=== PATIENT | male | born 1990 | race Caucasian/White ===

== ENCOUNTER → 2025-09-21 | Outpatient (CLI) | payer OTHER, SELFPAY ==
--- NOTE | 2025-09-21 14:32 | RAD_ITS ---
PROCEDURE: HAND 2 VIEWS 09/21/2025 REASON FOR EXAM: ARTHRITIS Pain. TECHNIQUE: Procedure Code: RADHAND 2V Modality: DX Procedure: HAND 2 VIEWS Laterality: Bilateral COMPARISON: None available for review. FINDINGS: Radiographs of bilateral hands demonstrate anatomic alignment without acute fracture or subluxation. Joint spaces are preserved. Soft tissues are within normal limits. RAD/Hand 2 Views IMPRESSION: No evidence of acute fracture or subluxation. No findings to suggest erosive o r proliferative arthropathy. Reading Location: [id number]
--- NOTE | 2025-09-21 14:32 | RAD_ITS ---
PROCEDURE: HAND 2 VIEWS 09/21/2025 REASON FOR EXAM: ARTHRITIS Pain. TECHNIQUE: Procedure Code: RADHAND 2V Modality: DX Procedure: HAND 2 VIEWS Laterality: Bilateral COMPARISON: None available for review. FINDINGS: Radiographs of bilateral hands demonstrate anatomic alignment without acute fracture or subluxation. Joint spaces are preserved. Soft tissues are within normal limits. RAD/Hand 2 Views IMPRESSION: No evidence of acute fracture or subluxation. No findings to suggest erosive o r proliferative arthropathy. Reading Location: [id number]
--- OUTSIDE RECORDS SUMMARY | 2025-09-21 18:38 | XMS RPT_ITS | CCD ---
Author Organization [facility] Care Team Providers Care State Director Name Role Phone PHYSICIAN, NONE Primary Care Physician Unavailab [facility] Primary Care Physician [facility] Primary Care Unavailable NICCI VELÁZQUEZ, BRYANT Echeverria Attending Unavail able RON , DR DELLA Grant Attending Unavailable [place], [facility] Primary Care Unavailable PATRICIA PHILIPPE DO Attending Unavailable [place], [facility] Primary Care Unavailable MARIA FERNANDA JONES MD Attending Unavailable PHYSICIAN, NONE Primary Care Unavailable TIARA VELÁZQUEZ, ERROL Palacios Attending Unavailable [place], [facility] Primary Care Unavailable ERROL MENJIVAR MD Attending Unavailable [place], [facility] Primary Care Unavailable SHERI FIGUEROA DO Consulting Unavailable ELIZABETH VELÁZQUEZ, DR GRIMALDO Attending Unavailable [place], [facility] Primary Care Unavailable GIGI VELÁZQUEZ, DR KELLEY Phillips Admitting Unavailable JENNI BARNHART MD Consulting Unavailable ISAIAH ALBERTO, NBA Thomas Attending Unavaila [facility], [facility] Primary Care Unavailable Medications Current Medications Medication Drug Class(es) Dates Sig (Normalized) Sig (Original) acetaminophen 325 mg / HYDROcodone bitartrate 5 mg oral tablet (4 sources) Opioid Agonist Start: 07-29-2025 End: 08-01-2025 take 1 tablet by mouth every six hours as needed for pain Arnold 325- 5 mg oral tablet Dose = 1 tab(s), Oral, q6h, PRN as needed for pain, X 3 day(s), # 12 tab(s), 0 Refill(s), Gastritis, 86.4 Start Date: 07/29/25 Stop Date: 08/01/25 Status: Ordered Medication Dispense Status: Completed Quantity: 12.0 Unit: tab(s) Total Allowed Fills: 1 Fills Dispensed: 0 Indications: Gastritis, unspecified, without bleeding; Start: 06-13-2025 End: 06-16-2025 take 1 tablet by mouth every six hours as needed for pain Arnold 325- 5 mg oral tablet Dose = 1 tab(s), Oral, q6hr, PRN for pain, X 3 day(s), # 12 tab(s), 0 Refill(s), Neck pain, 89.5 Start Date: 06/13/25 Stop Date: 06/16/25 Status: Ordered Medication Dispense Status: Completed Quantity: 12.0 Unit: tab(s) Total Allowed Fills: 1 Fills Dispensed: 0 Indications: Cervicalgia; cyclobenzaprine hydrochloride 10 mg oral tablet (1 source) Muscle Relaxant Start: 07-08-2025 End: 07-24-2025 take 1 capsule by mouth three times daily Flexeril use cyclobenzaprine Dose : 10 mg =, Oral, TID, # 20 cap(s), 0 Refill(s), 07/24/25 9:39:00 AM EDT Start Date: 07/08/25 Stop Date: 07/24/25 Status: Ordered Medication Dispense Status: Completed Quantity: 20.0 Unit: cap(s) Total Allowed Fills: 1 Fills Dispensed: 0 dicyclomine hydrochloride 20 mg oral tablet (3 sources) Anticholinergic Start: 07-29-2025 take 1 capsule by mouth four times daily Bentyl use dicyclomine Dose : 20 mg =, Oral, QID, # 20 cap(s), 0 Refill(s) Start Date: 07/29/25 Status: Ordered Medication Dispense Status: Completed Quantity: 20.0 Unit: cap(s) Total Allowed Fills: 1 Fills Dispensed: 0 famotidine 20 mg oral tablet (3 sources) Histamine-2 Receptor Antagonist Start: 07-29-2025 Pepcid 20 mg oral tablet Dose : 20 mg = 1 tab(s), Oral, BID, # 30 tab(s), 0 Refill(s) Start Date: 07/29/25 Status: Ordered Medication Dispense Status: Completed Quantity: 30.0 Unit: tab(s) Total Allowed Fills: 1 Fills Dispensed: 0 lansoprazole 15 mg delayed release oral capsule (3 sources) Proton Pump Inhibitor Start: 07-29-2025 Prevacid 15 mg oral delayed release capsule Dose : 15 mg = 1 cap(s), Oral, qDay, # 30 cap(s), 0 Refill(s) Start Date: 07/29/25 Status: Ordered Medication Dispense Status: Completed Quantity: 30.0 Unit: cap(s) Total Allowed Fills: 1 Fills Dispensed: 0 ondansetron 4 mg disintegrating oral tablet (3 sources) Serotonin-3 Receptor Antagonist Start: 07-29-2025 End: 08-02-2025 ondansetron 4 mg oral tablet, disintegrating Dose : 4 mg = 1 tab(s), Oral, q6h, PRN Nausea/Vomiting, X 4 day(s), # 12 tab(s), 0 Refill(s), 08/02/25 6:44:00 PM EDT Start Date: 07/29/25 Stop Date: 08/02/25 Status: Ordered Medication Dispense Status: Completed Quantity: 12.0 Unit: tab(s) Total Allowed Fills: 1 Fills Dispensed: 0 pantoprazole 40 mg delayed release oral tablet (1 source) Proton Pump Inhibitor Start: 08-02-2025 pantoprazole 40 mg oral enteric coated tablet Dose : 40 mg = 1 tab(s), Oral, qDayAC, # 30 tab(s), 0 Refill(s) Start Date: 08/02/25 Status: Ordered Medication Dispense Status: Completed Quantity: 30.0 Unit: tab(s) Total Allowed Fills: 1 Fills Dispensed: 0 Completed/Discontinued Medications Medication Drug Class(es) Dates Sig (Normalized) Sig (Original) sucralfate 1000 mg oral tablet (1 source) Aluminum Complex Start: 07-31-2025 End: 08-07-2025 sucralfate 1 g oral tablet Dose : 1 gram(s) = 1 tab(s), Oral, QID, take on an empty stomach 1hr before or 2hr after meals at minumum, # 28 tab(s), 0 Refill(s) Start Date: 07/31/25 Stop Date: 08/07/25 Status: Ordered Medication Dispense Status: Completed Quantity: 28.0 Unit: tab(s) Total Allowed Fills: 1 Fills Dispensed: 0 Problems Active Problems Problem Classification Problem Date Documented Date Episodic/Chronic Abdominal pain (6 sources) Abdominal pain; Translations: [Unspecified abdominal pain] Onset: 07-28-2025 Episodic Essential hypertension (1 source) Essential (primary) hypertension; Translations: [Essential (primary) hypertension] Onset: 07-31-2025 Chronic Gastritis and duodenitis (5 sources) Gastritis; Translations: [Gastritis, unspecified, without bleeding] Onset: 07-29-2025 Episodic Nausea and vomiting (1 source) Nausea with vomiting, unspecified; Translations: [Nausea with vomiting, unspecified] Onset: 07-28-2025 Episodic Other injuries and conditions due to external causes (1 source) Other specified injuries of unspecified part of neck, initial encounter; Translations: [Other specified injuries of unspecified part of neck, initial encounter] Onset: 07-08-2025 Episodic Other injuries and conditions due to external causes (1 source) History of falling; Translations: [History of falling] Onset: 07-08-2025 Episodic Other nervous system disorders (1 source) Other chronic pain; Translations: [Other chronic pain] Onset: 07-31-2025 Chronic Other screening for suspected conditions (not mental disorders or infectious disease) (1 source) Abnormal electrocardiogram [ECG] [EKG]; Translations: [Abnormal electrocardiogram [ECG] [EKG]] Onset: 07-29-2025 Episodic Spondylosis; intervertebral disc disorders; other back problems (4 sources) Neck pain; Translations: [Cervicalgia] Onset: 06-13-2025 Episodic Substance-related disorders (1 source) Cannabis use, unspecified, uncomplicated; Translations: [Cannabis use, unspecified, uncomplicated] Onset: 07-31-2025 Episodic Past or Other Problems Problem Classification Problem Date Documented Da te Episodic/Chronic Other ear and sense organ disorders (1 source) Otalgia, right ear; Translations: [Otalgia, right ear] Onset: 05-09-2025 Episodic Results Test Name Value Interpretation Reference Range Facility Final Surgical Pathology Rep delmy 08-03-2025 Final Surgical Pathology Report . Pathology Reports Accession: Collected Date/Time: Received Date/Time: Pathologist: [id number] 08/02/2025 11:53 EDT 08/02/2025 13:57 EDT MD KENDELL MOLINA Final Surgical Pathology Report DIAGNOSIS: GASTRIC ANTRUM, BIOPSY: - MILD CHRONIC GASTRITIS - NEGATIVE FOR H. PYLORI CLINICAL INFORMATION: R/O H PYLORI Procedure: EGD USING ANESTHESIA Preoperative diagnosis: EPIGASTRIC PAIN, NAUSEA Postoperative diagnosis: SAME SPECIMEN: A GASTRIC ANTRUM BIOPSY GROSS DESCRIPTION: All parts labelled with patient name and [id number] Received in formalin labeled "gastric antrum biopsy" are 2 jackson-brown tissue fragments measuring 0.3 and 0.8 x 0.3 cm. TS-1 Alice Evans, Grossing Director Of Bands/ Dr. Nba Gill, Pathologist Performed by Alice Evans MICROSCOPIC DESCRIPTION: The microscopic examination is performed, except in the case of Gross Only. Verified by Pathology Report verified by [facility] KENDELL MOLINA MD Sign out Date: 08/03/2025 15:46 Performing Lab: [facility], [address] [place] [address] Pathology Dept Disclaimer If ancillary studies were utilized, the following Laboratory Developed Test (LDT) disclaimer will apply: Under CLIA requirements, [facility] is qualified to perform high complexity testing. For all ancillary stains, positive and negative controls stain appropriately. Performance characteristics of immunohistochemical and chromogenic in-situ hybridization tests have been determined by [facility]. These tests are used for clinical purposes, They should not be regarded as investigational or for research. Normal [facility] .Auto Diffon 08-02-2025 Basophil, Absolute 0.0 10 3/mcL Normal 0.0-0.3 [facility] Comment on above: Performed By: #### B MP, CBC, ADIFF, ANEU, GFR #### [address] [address] Basophils/100 WBC (Bld) 0.6 % Normal 0.0-2.5 [facility] Comment on above: Performed By: #### B MP, CBC, ADIFF, ANEU, GFR #### [address] [address] Eosinophil, Absolute 0.1 10 3/mcL Normal 0.0-0.7 [facility] Comment on above: Performed By: #### B MP, CBC, ADIFF, ANEU, GFR #### [address] [address] Eosinophils/100 WBC (Bld) 1.6 % Normal 0.0-6.0 [facility] Comment on above: Performed By: #### B MP, CBC, ADIFF, ANEU, GFR #### [address] [address] Lymphocyte, Absolute 1.5 10 3/mcL Normal 0.9-4.3 [facility] Comment on above: Performed By: #### B MP, CBC, ADIFF, ANEU, GFR #### [address] [address] Lymphocytes/100 WBC (Bld) 19.2 % Low 20.0-40.0 [facility] Comment on above: Performed By: #### B MP, CBC, ADIFF, ANEU, GFR #### [address] [address] Monocyte, Absolute 0.5 10 3/mcL Normal 0.1-1.4 [facility] Comment on above: Performed By: #### B MP, CBC, ADIFF, ANEU, GFR #### [address] [address] Monocytes/100 WBC (Bld) 6.0 % Normal 2.0-13.0 [facility] Comment on above: Performed By: #### B MP, CBC, ADIFF, ANEU, GFR #### [address] [address] Neutrophils/100 WBC (Bld) 72.6 % Normal 50.0-75.0 [facility] Comment on above: Performed By: #### B MP, CBC, ADIFF, ANEU, GFR #### [address] [address] .GFRon 08-02-2025 Estimated Glomerular Filtration Rate 110 ml/min/1.73sqm Normal [facility] Comment on above: Result Comment: Stages of Chronic Kidney Disease (CKD) Stage Description eGFR(ml/min/1.73 sq.m.) CKD 1 Normal kidney function or >=90 normal kindney function with possible kidney damage (ex. Proteinuria) CKD 2 Kidney damage with mild loss 60-89 of kidney function CKD 3a Mild to moderate loss of kidney 45-59 function CKD 3b Moderate to severe loss of 30-44 of kindey function CKD 4 Severe loss of kidney function 15-29 CKD 5 Kidney failure <15 Note: (go live 2024) the eGFR calculation was updated to the 2020 CKD-EPI creatinine equation without a race factor to calculate the eGFR results. Performed By: #### B MP, CBC, ADIFF, ANEU, GFR ####[address] [address] .NEUABSon 08-02-2025 Neutrophil, Absolute 5.8 10 3/mcL Normal 2.3-8.1 [facility] Comment on above: Performed By: #### B MP, CBC, ADIFF, ANEU, GFR #### [address] [address] BMPon 08-02-2025 BUN/Creatinine Ratio 6.4 ratio Low 10.0-22.0 [facility] Comment on above: Performed By: #### B MP, CBC, ADIFF, ANEU, GFR #### [address] [address] Calcium [Mass/Vol] 10.2 mg/dL Normal 8.7-10.4 [facility] Comment on above: Performed By: #### B MP, CBC, ADIFF, ANEU, GFR #### [address] [address] Chloride [Moles/Vol] 109 mmol/L Normal 98-110 [facility] Comment on above: Performed By: #### B MP, CBC, ADIFF, ANEU, GFR #### [address] [address] CO2 [Moles/Vol] 26 mmol/L Normal 22-32 [facility] Comment on above: Performed By: #### B MP, CBC, ADIFF, ANEU, GFR #### [address] [address] Creatinine [Mass/Vol] 0.94 mg/dL Normal 0.60-1.40 [facility] Comment on above: Result Comment: Test ing performed on NewsBreak analyzer using enzymatic creatinine methodology. Performed By: #### B MP, CBC, ADIFF, ANEU, GFR #### [address] [address] Electrolyte Balance 6.0 mEq/L Normal 4.0-15.0 [facility] Comment on above: Performed By: #### B MP, CBC, ADIFF, ANEU, GFR #### [place] [id number] Glucose [Mass/Vol] 95 mg/dL Normal 70-110 [facility] Comment on above: Performed By: #### B MP, CBC, ADIFF, ANEU, GFR #### [place] [id number] Potassium [Moles/Vol] 4.4 mmol/L Normal 3.5-5.0 [facility] Comment on above: Performed By: #### B MP, CBC, ADIFF, ANEU, GFR #### [place] [id number] Sodium [Moles/Vol] 141 mmol/L Normal 136-145 [facility] Comment on above: Performed By: #### B MP, CBC, ADIFF, ANEU, GFR #### [place] [address] Urea nitrogen [Mass/Vol] 6.0 mg/dL Low 8.0-22.0 [facility] Comment on above: Performed By: #### B MP, CBC, ADIFF, ANEU, GFR #### [address] [address] CBCon 08-02-2025 Erythrocyte distribution width (RBC) [Ratio] 13.1 % Normal 11.5-15.5 [facility] Comment on above: Performed By: #### B MP, CBC, ADIFF, ANEU, GFR #### [place] [id number] Hematocrit (Bld) [Volume fraction] 43.8 % Normal 40.0-52.0 [facility] Comment on above: Performed By: #### B MP, CBC, ADIFF, ANEU, GFR #### [place] [id number] Hgb 15.3 G/dL Normal 13.0-17.5 [facility] Comment on above: Performed By: #### B MP, CBC, ADIFF, ANEU, GFR #### [address] [address] MCH (RBC) [Entitic mass] 31.0 pg Normal 27.0-33.0 [facility] Comment on above: Performed By: #### B MP, CBC, ADIFF, ANEU, GFR #### [address] [address] MCHC 35.0 G/dL Normal 32.0-36.0 [facility] Comment on above: Performed By: #### B MP, CBC, ADIFF, ANEU, GFR #### [address] [address] MCV (RBC) [Entitic vol] 88.8 fL Normal 81.0-100.0 [facility] Comment on above: Performed By: #### B MP, CBC, ADIFF, ANEU, GFR #### [place] [address] Platelet 211 10 3/mcL Normal 150-450 [facility] Comment on above: Performed By: #### B MP, CBC, ADIFF, ANEU, GFR #### [place] [address] Platelet mean volume (Bld) [Entitic vol] 7.3 fL Normal 6.4-10.5 [facility] Comment on above: Performed By: #### B MP, CBC, ADIFF, ANEU, GFR #### [place] [id number] RBC 4.93 10 6/mcL Normal 4.50-6.00 [facility] Comment on above: Performed By: #### B MP, CBC, ADIFF, ANEU, GFR #### [address] [address] WBC 8.0 10 3/mcL Normal 4.5-10.8 [facility] Comment on above: Performed By: #### B MP, CBC, ADIFF, ANEU, GFR #### [address] [address] LABORATORYOrdered By: SYSTEM SYSTEM on 08-02-2025 Basophils (Bld) [#/Vol] 0.0 103/mcL Normal 0.0 - 0.3 10^3/mcL Workflow SS Basophils/100 WBC (Bld) 0.6 % Normal 0.0 - 2.5 % Workflow SS Calcium [Mass/Vol] 10.2 mg/dL Normal 8.7 - 10. 4 mg/dL ADM SS Chloride [Moles/Vol] 109 mmol/L Normal 98 - 11 0 mEq/L ADM SS CO2 [Moles/Vol] 26 mmol/L Normal 22 - 32 mEq/L ADM SS Creatinine [Mass/Vol] 0.94 mg/dL Normal 0.60 - 1.40 mg/dL ADM SS Comment on above: Interpretive Data: T esting performed on NewsBreak analyzer using enzymatic creatinine methodology. Electrolyte Balance 6.0 mEq/L Normal 4.0 - 15 .0 mEq/L ADM SS Eosinophils (Bld) [#/Vol] 0.1 103/mcL Normal 0.0 - 0.7 10^3/mcL Workflow SS Eosinophils/100 WBC (Bld) 1.6 % Normal 0.0 - 6.0 % Workflow SS Erythrocyte distribution width (RBC) [Ratio] 13.1 % Normal 11.5 - 15.5 % Workflow SS GLOMERULAR FILTRATION RATE/1.73 SQ M.PREDICTED:ARVRAT:PT :SER/PLAS/BLD:QN:CREA TININE-BASED FORMULA (CKD-EPI 2020) 110 ml/min/1.73sqm Invalid Interpretation Code Chemistry S Comment on above: Interpretive Data: Stages of Chronic Kidney Disease (CKD) Stage Description eGFR(ml/min/1.73 sq.m.) CKD 1 Normal kidney function or >=90 normal kindney function with possible kidney damage (ex. Proteinuria) CKD 2 Kidney damage with mild loss 60-89 of kidney function CKD 3a Mild to moderate loss of kidney 45-59 function CKD 3b Moderate to severe loss of 30-44 of kindey function CKD 4 Severe loss of kidney function 15-29 CKD 5 Kidney failure <15 Note: (go live 2024) the eGFR calculation was updated to the 2020 CKD-EPI creatinine equation without a race factor to calculate the eGFR results. Glucose [Mass/Vol] 95 mg/dL Normal 70 - 110 mg/dL ADM SS Hematocrit (Bld) [Volume fraction] 43.8 % Normal 40.0 - 52.0 % AH Workflow SS Hemoglobin (Bld) [Mass/Vol] 15.3 G/dL Normal 13.0 - 17.5 G/dL AH Workflow SS Lymphocytes (Bld) [#/Vol] 1.5 103/mcL Normal 0.9 - 4.3 10^3/mcL AH Workflow SS Lymphocytes/100 WBC (Bld) 19.2 % Low 20.0 - 40.0 % AH Workflow SS MCH (RBC) [Entitic mass] 31.0 pg Normal 27.0 - 33.0 pg AH Workflow SS MCHC 35.0 G/dL Normal 32.0 - 36.0 G/dL AH Workflow SS MCV (RBC) [Entitic vol] 88.8 fL Normal 81.0 - 100.0 fL AH Workflow SS Monocytes (Bld) [#/Vol] 0.5 103/mcL Normal 0.1 - 1.4 10^3/mcL AH Workflow SS Monocytes/100 WBC (Bld) 6.0 % Normal 2.0 - 13.0 % AH Workflow SS Neutrophils (Bld) [#/Vol] 5.8 103/mcL Normal 2.3 - 8.1 10^3/mcL AH Workflow SS Neutrophils/100 WBC (Bld) 72.6 % Normal 50.0 - 75.0 % AH Workflow SS Platelet mean volume (Bld) [Entitic vol] 7.3 fL Normal 6.4 - 10.5 fL AH Workflow SS Platelets (Bld) [#/Vol] 211 103/mcL Normal 150 - 450 10^3/mcL AH Workflow SS Potassium [Moles/Vol] 4.4 mmol/L Normal 3.5 - 5.0 mEq/L AH ADM SS RBC (Bld) [#/Vol] 4.93 106/mcL Normal 4.50 - 6.0 0 10^6/mcL AH Workflow SS Sodium [Moles/Vol] 141 mmol/L Normal 136 - 145 mEq/L AH ADM SS Urea nitrogen [Mass/Vol] 6.0 mg/dL Low 8.0 - 22.0 mg/dL AH ADM SS Urea nitrogen/Creatinine [Mass ratio] 6.4 ratio Low 10.0 - 22.0 ratio AH ADM SS WBC (Bld) [#/Vol] 8.0 103/mcL Normal 4.5 - 10.8 10^3/mcL AH Workflow SS .Auto Diffon 08-01-2025 Basophil, Absolute 0.0 10 3/mcL Normal 0.0-0.3 [facility] Comment on above: Performed By: #### L AC, LIP, TROPHS, GFR, ADIFF, ESR, CBC, ANEU, CMP ####[address] [address] Basophils/100 WBC (Bld) 0.5 % Normal 0.0-2.5 [facility] Comment on above: Performed By: #### L AC, LIP, TROPHS, GFR, ADIFF, ESR, CBC, ANEU, CMP ####[address] [address] Eosinophil, Absolute 0.1 10 3/mcL Normal 0.0-0.7 [facility] Comment on above: Performed By: #### L AC, LIP, TROPHS, GFR, ADIFF, ESR, CBC, ANEU, CMP ####[address] [address] Eosinophils/100 WBC (Bld) 1.8 % Normal 0.0-6.0 [facility] Comment on above: Performed By: #### L AC, LIP, TROPHS, GFR, ADIFF, ESR, CBC, ANEU, CMP ####[address] [address] Lymphocyte, Absolute 1.7 10 3/mcL Normal 0.9-4.3 [facility] Comment on above: Performed By: #### L AC, LIP, TROPHS, GFR, ADIFF, ESR, CBC, ANEU, CMP ####[address] [address] Lymphocytes/100 WBC (Bld) 23.5 % Normal 20.0-40.0 [facility] Comment on above: Performed By: #### L AC, LIP, TROPHS, GFR, ADIFF, ESR, CBC, ANEU, CMP ####[address] [address] Monocyte, Absolute 0.6 10 3/mcL Normal 0.1-1.4 [facility] Comment on above: Performed By: #### L AC, LIP, TROPHS, GFR, ADIFF, ESR, CBC, ANEU, CMP ####[address] [address] Monocytes/100 WBC (Bld) 7.6 % Normal 2.0-13.0 [facility] Comment on above: Performed By: #### L AC, LIP, TROPHS, GFR, ADIFF, ESR, CBC, ANEU, CMP ####[address] [address] Neutrophils/100 WBC (Bld) 66.6 % Normal 50.0-75.0 [facility] Comment on above: Performed By: #### L AC, LIP, TROPHS, GFR, ADIFF, ESR, CBC, ANEU, CMP ####[address] [address] .GFRon 08-01-2025 Estimated Glomerular Filtration Rate 106 ml/min/1.73sqm Normal [facility] Comment on above: Result Comment: Stages of Chronic Kidney Disease (CKD) Stage Description eGFR(ml/min/1.73 sq.m.) CKD 1 Normal kidney function or >=90 normal kindney function with possible kidney damage (ex. Proteinuria) CKD 2 Kidney damage with mild loss 60-89 of kidney function CKD 3a Mild to moderate loss of kidney 45-59 function CKD 3b Moderate to severe loss of 30-44 of kindey function CKD 4 Severe loss of kidney function 15-29 CKD 5 Kidney failure <15 Note: (go live 2024) the eGFR calculation was updated to the 2020 CKD-EPI creatinine equation without a race factor to calculate the eGFR results. Performed By: #### L AC, LIP, TROPHS, GFR, ADIFF, ESR, CBC, ANEU, CMP ####[address] [address] .NEUABSon 08-01-2025 Neutrophil, Absolute 4.9 10 3/mcL Normal 2.3-8.1 [facility] Comment on above: Performed By: #### L AC, LIP, TROPHS, GFR, ADIFF, ESR, CBC, ANEU, CMP ####[address] [address] CBCon 08-01-2025 Erythrocyte distribution width (RBC) [Ratio] 13.4 % Normal 11.5-15.5 [facility] Comment on above: Performed By: #### L AC, LIP, TROPHS, GFR, ADIFF, ESR, CBC, ANEU, CMP ####[place] [address] Hematocrit (Bld) [Volume fraction] 43.6 % Normal 40.0-52.0 [facility] Comment on above: Performed By: #### L AC, LIP, TROPHS, GFR, ADIFF, ESR, CBC, ANEU, CMP ####[place] [address] Hgb 15.1 G/dL Normal 13.0-17.5 [facility] Comment on above: Performed By: #### L AC, LIP, TROPHS, GFR, ADIFF, ESR, CBC, ANEU, CMP ####[place] [address] MCH (RBC) [Entitic mass] 31.2 pg Normal 27.0-33.0 [facility] Comment on above: Performed By: #### L AC, LIP, TROPHS, GFR, ADIFF, ESR, CBC, ANEU, CMP ####[place] [address] MCHC 34.8 G/dL Normal 32.0-36.0 [facility] Comment on above: Performed By: #### L AC, LIP, TROPHS, GFR, ADIFF, ESR, CBC, ANEU, CMP ####[place] [address] MCV (RBC) [Entitic vol] 89.6 fL Normal 81.0-100.0 [facility] Comment on above: Performed By: #### L AC, LIP, TROPHS, GFR, ADIFF, ESR, CBC, ANEU, CMP ####[place] [address] Platelet 194 10 3/mcL Normal 150-450 [facility] Comment on above: Performed By: #### L AC, LIP, TROPHS, GFR, ADIFF, ESR, CBC, ANEU, CMP ####[place] [address] Platelet mean volume (Bld) [Entitic vol] 6.6 fL Normal 6.4-10.5 [facility] Comment on above: Performed By: #### L AC, LIP, TROPHS, GFR, ADIFF, ESR, CBC, ANEU, CMP ####[place] [address] RBC 4.86 10 6/mcL Normal 4.50-6.00 [facility] Comment on above: Performed By: #### L AC, LIP, TROPHS, GFR, ADIFF, ESR, CBC, ANEU, CMP ####[place] [address] WBC 7.3 10 3/mcL Normal 4.5-10.8 [facility] Comment on above: Performed By: #### L AC, LIP, TROPHS, GFR, ADIFF, ESR, CBC, ANEU, CMP ####[place] [address] CMPon 08-01-2025 Albumin Level 4.3 G/dL Normal 3.2-4.8 [facility] Comment on above: Performed By: #### L AC, LIP, TROPHS, GFR, ADIFF, ESR, CBC, ANEU, CMP ####[place] [address] Albumin/Globulin [Mass ratio] 1.6 {ratio} Normal 0.9-1.6 [facility] Comment on above: Performed By: #### L AC, LIP, TROPHS, GFR, ADIFF, ESR, CBC, ANEU, CMP ####[place] [address] ALP [Catalytic activity/Vol] 55 U/L Normal 38-126 [facility] Comment on above: Performed By: #### L AC, LIP, TROPHS, GFR, ADIFF, ESR, CBC, ANEU, CMP ####[place] [address] ALT [Catalytic activity/Vol] 21 U/L Normal 12-55 [facility] Comment on above: Performed By: #### L AC, LIP, TROPHS, GFR, ADIFF, ESR, CBC, ANEU, CMP ####[place] [id number] AST [Catalytic activity/Vol] 17 U/L Normal 8-34 [facility] Comment on above: Performed By: #### L AC, LIP, TROPHS, GFR, ADIFF, ESR, CBC, ANEU, CMP ####[place] [address] Bili Total 1.20 mg/dL Normal 0.20-1.20 [facility] Comment on above: Result Comment: Use of this assay is not recommended for patients undergoing treatment with eltrombopag due to the potential for falsely elevated results. Performed By: #### L AC, LIP, TROPHS, GFR, ADIFF, ESR, CBC, ANEU, CMP ####[place] [address] BUN/Creatinine Ratio 12.4 ratio Normal 10.0-22.0 [facility] Comment on above: Performed By: #### L AC, LIP, TROPHS, GFR, ADIFF, ESR, CBC, ANEU, CMP ####[place] [address] Calcium [Mass/Vol] 9.8 mg/dL Normal 8.7-10.4 [facility] Comment on above: Performed By: #### L AC, LIP, TROPHS, GFR, ADIFF, ESR, CBC, ANEU, CMP ####[place] [address] Chloride [Moles/Vol] 108 mmol/L Normal 98-110 [facility] Comment on above: Performed By: #### L AC, LIP, TROPHS, GFR, ADIFF, ESR, CBC, ANEU, CMP ####[place] [id number] CO2 [Moles/Vol] 27 mmol/L Normal 22-32 [facility] Comment on above: Performed By: #### L AC, LIP, TROPHS, GFR, ADIFF, ESR, CBC, ANEU, CMP ####[place] [id number] Creatinine [Mass/Vol] 0.97 mg/dL Normal 0.60-1.40 [facility] Comment on above: Result Comment: Test ing performed on [employer] CH analyzer using enzymatic creatinine methodology. Performed By: #### L AC, LIP, TROPHS, GFR, ADIFF, ESR, CBC, ANEU, CMP ####[address] [address] Electrolyte Balance 7.0 mEq/L Normal 4.0-15.0 [facility] Comment on above: Performed By: #### L AC, LIP, TROPHS, GFR, ADIFF, ESR, CBC, ANEU, CMP ####[address] [address] Globulin 2.7 G/dL Normal 2.5-4.2 [facility] Comment on above: Performed By: #### L AC, LIP, TROPHS, GFR, ADIFF, ESR, CBC, ANEU, CMP ####[address] [address] Glucose [Mass/Vol] 98 mg/dL Normal 70-110 [facility] Comment on above: Performed By: #### L AC, LIP, TROPHS, GFR, ADIFF, ESR, CBC, ANEU, CMP ####[address] [address] Potassium [Moles/Vol] 3.8 mmol/L Normal 3.5-5.0 [facility] Comment on above: Performed By: #### L AC, LIP, TROPHS, GFR, ADIFF, ESR, CBC, ANEU, CMP ####[address] [address] Sodium [Moles/Vol] 142 mmol/L Normal 136-145 [facility] Comment on above: Performed By: #### L AC, LIP, TROPHS, GFR, ADIFF, ESR, CBC, ANEU, CMP ####[place] [id number] Total Protein 7.0 G/dL Normal 5.7-8.2 [facility] Comment on above: Performed By: #### L AC, LIP, TROPHS, GFR, ADIFF, ESR, CBC, ANEU, CMP ####[address] [address] Urea nitrogen [Mass/Vol] 12.0 mg/dL Normal 8.0-22.0 [facility] Comment on above: Performed By: #### L AC, LIP, TROPHS, GFR, ADIFF, ESR, CBC, ANEU, CMP ####[facility] [place] [address] ANGIOGRAPHY ABD AORTA + I LIOFEMORALon 08-01-2025 CT ANGIOGRAPHY ABD AORTA + ILIOFEMORAL ORIGINAL EXAMINATION: CTA OF THE ABDOMEN AND PELVIS WITH CONTRAST 08/01/2025 10:18 am: TECHNIQUE: CTA of the abdomen and pelvis was performed with the administration of intravenous contrast. Multiplanar reformatted images are provided for review. MIP images are provided for review. Automated exposure control, iterative reconstruction, and/or weight based adjustment of the mA/kV was utilized to reduce the radiation dose to as low as reasonably achievable. COMPARISON: CT abdomen and pelvis 07/29/2025 HISTORY: ORDERING SYSTEM PROVIDED HISTORY: Reason for Exam: pt c/o severe low abd pain into ribs and back Acute diffuse abdominal pain, postprandial abdominal pain IMPRESSION: Lung bases are clear. No pleural effusion heart is normal in size without pericardial effusion. Normal liver morphology. No suspicious hepatic lesions. The previously seen periportal edema appears to have resolved. Gallbladder is unremarkable. No biliary dilatation. Spleen, pancreas and adrenal glands are unremarkable. Kidneys are symmetric in size without evidence of hydronephrosis or renal calculi. Ureters are normal in caliber. Urinary bladder is unremarkable. Prostate is normal in size. Esophagus, stomach and duodenum are unremarkable. The previously seen at distal stomach wall thickening appears resolved. Normal caliber small and large bowel. Appendix is unremarkable. No pneumatosis or portal venous gas. No free pelvic fluid or pneumoperitoneum. Aorta is normal in caliber. The celiac, superior mesenteric, inferior mesenteric and bilateral single renal arteries are widely patent. The iliac and visualized femoral arteries are widely patent. No enlarged abdominal or pelvic lymph nodes. Abdominal wall is intact. No aggressive osseous lesions. RECOMMENDATIONS: No acute findings within the abdomen and pelvis. The mesenteric arteries are widely patent. Previously seen periportal edema has resolved. Previously seen gastric wall thickening has also resolved. Interpreted by: Nba Moses Preliminary Report By: Nba Moses Electronically signed By Nba Moses Dictated Date: 08/01/2025 10:23:48 AM Prelim Date: 08/01/2025 10:29:18 AM Sign Date: 08/01/2025 10:29:18 AM Ordering Provider: JENNI BARNHART RP Normal [facility] ESRon 08-01-2025 Erythrocyte Sed Rate 8 mm/hr Normal 0-15 [facility] Comment on above: Performed By: #### L AC, LIP, TROPHS, GFR, ADIFF, ESR, CBC, ANEU, CMP ####[facility] [place] [address] LABORATORYOrdered By: SYSTEM SYSTEM on 08-01-2025 Albumin BCP dye [Mass/Vol] 4.3 G/dL Normal 3.2 - 4.8 G/dL ADM SS Albumin/Globulin [Mass ratio] 1.6 {ratio} Normal 0.9 - 1.6 ratio AH ADM SS ALP [Catalytic activity/Vol] 55 U/L Normal 38 - 126 U/L AH ADM SS ALT No additional P-5'-P [Catalytic activity/Vol] 21 U/L Normal 12 - 55 U/L AH ADM SS AST [Catalytic activity/Vol] 17 U/L Normal 8 - 34 U/L AH ADM SS Basophils (Bld) [#/Vol] 0.0 103/mcL Normal 0.0 - 0.3 10^3/mcL AH Workflow SS Basophils/100 WBC (Bld) 0.5 % Normal 0.0 - 2.5 % AH Workflow SS Bilirubin [Mass/Vol] 1.20 mg/dL Normal 0.20 - 1.20 mg/dL AH ADM SS Comment on above: Interpretive Data: U se of this assay is not recommended for patients undergoing treatment with eltrombopag due to the potential for falsely elevated results. Calcium [Mass/Vol] 9.8 mg/dL Normal 8.7 - 10. 4 mg/dL AH ADM SS Chloride [Moles/Vol] 108 mmol/L Normal 98 - 11 0 mEq/L AH ADM SS CO2 [Moles/Vol] 27 mmol/L Normal 22 - 32 mEq/L AH ADM SS Creatinine [Mass/Vol] 0.97 mg/dL Normal 0.60 - 1.40 mg/dL AH ADM SS Comment on above: Interpretive Data: T esting performed on [employer] analyzer using enzymatic creatinine methodology. Electrolyte Balance 7.0 mEq/L Normal 4.0 - 15 .0 mEq/L AH ADM SS Eosinophils (Bld) [#/Vol] 0.1 103/mcL Normal 0.0 - 0.7 10^3/mcL Workflow SS Eosinophils/100 WBC (Bld) 1.8 % Normal 0.0 - 6.0 % Workflow SS Erythrocyte distribution width (RBC) [Ratio] 13.4 % Normal 11.5 - 15.5 % Workflow SS Globulin 2.7 G/dL Normal 2.5 - 4.2 G/dL ADM SS GLOMERULAR FILTRATION RATE/1.73 SQ M.PREDICTED:ARVRAT:PT :SER/PLAS/BLD:QN:CREA TININE-BASED FORMULA (CKD-EPI 2020) 106 ml/min/1.73sqm Invalid Interpretation Code ADM SS Comment on above: Interpretive Data: Stages of Chronic Kidney Disease (CKD) Stage Description eGFR(ml/min/1.73 sq.m.) CKD 1 Normal kidney function or >=90 normal kindney function with possible kidney damage (ex. Proteinuria) CKD 2 Kidney damage with mild loss 60-89 of kidney function CKD 3a Mild to moderate loss of kidney 45-59 function CKD 3b Moderate to severe loss of 30-44 of kindey function CKD 4 Severe loss of kidney function 15-29 CKD 5 Kidney failure <15 Note: (go live 2024) the eGFR calculation was updated to the 2020 CKD-EPI creatinine equation without a race factor to calculate the eGFR results. Glucose [Mass/Vol] 98 mg/dL Normal 70 - 110 mg/dL ADM SS Hematocrit (Bld) [Volume fraction] 43.6 % Normal 40.0 - 52.0 % Workflow SS Hemoglobin (Bld) [Mass/Vol] 15.1 G/dL Normal 13.0 - 17.5 G/dL Workflow SS Lactate [Moles/Vol] 0.6 mmol/L Normal 0.5 - 2. 2 mmol/L ADM SS Lipase [Catalytic activity/Vol] 33 U/L Normal 12 - 53 U/L ADM SS Lymphocytes (Bld) [#/Vol] 1.7 103/mcL Normal 0.9 - 4.3 10^3/mcL Workflow SS Lymphocytes/100 WBC (Bld) 23.5 % Normal 20.0 - 40.0 % Workflow SS Magnesium [Mass/Vol] 2.2 mg/dL Normal 1.6 - 2 .4 mg/dL ADM SS MCH (RBC) [Entitic mass] 31.2 pg Normal 27.0 - 33.0 pg Workflow SS MCHC 34.8 G/dL Normal 32.0 - 36.0 G/dL Workflow SS MCV (RBC) [Entitic vol] 89.6 fL Normal 81.0 - 100.0 fL Workflow SS Monocytes (Bld) [#/Vol] 0.6 103/mcL Normal 0.1 - 1.4 10^3/mcL Workflow SS Monocytes/100 WBC (Bld) 7.6 % Normal 2.0 - 13.0 % Workflow SS Neutrophils (Bld) [#/Vol] 4.9 103/mcL Normal 2.3 - 8.1 10^3/mcL Workflow SS Neutrophils/100 WBC (Bld) 66.6 % Normal 50.0 - 75.0 % Workflow SS Platelet mean volume (Bld) [Entitic vol] 6.6 fL Normal 6.4 - 10.5 fL Workflow SS Platelets (Bld) [#/Vol] 194 103/mcL Normal 150 - 450 10^3/mcL Workflow SS Potassium [Moles/Vol] 3.8 mmol/L Normal 3.5 - 5.0 mEq/L ADM SS Protein [Mass/Vol] 7.0 G/dL Normal 5.7 - 8.2 G/dL ADM SS PT Coag (PPP) [Time] 11.7 s Normal 9.0 - 1 4.4 seconds [facility] Comment on above: Interpretive Data: E ffective 05/11/08, Protime results may be affected by some antibiotics (i.e. Ciprofloxacin, Azithromycin, Bactrim) which may potentiate the action of oral anticoagulants, with further increases in Protime/INR. PT International Ratio 1.0 ratio Invalid Interpretation Code [facility] Comment on above: Interpretive Data: Keri barnes [employer] (CHEST, 1992, 102:312S-25S) recommended therapeutic range for oral anticoagulant therapy is: LOW RISK: Prophylaxis of venous thrombosis INR: 2.0-3.0 Treatment of pulmonary embolism 2.0-3.0 Prevention of systemic embolism 2.0-3.0 HIGH RISK: Mechanical prosthetic valves 2.5-3.5 RBC (Bld) [#/Vol] 4.86 106/mcL Normal 4.50 - 6.0 0 10^6/mcL AH Workflow SS Sodium [Moles/Vol] 142 mmol/L Normal 136 - 145 mEq/L AH ADM SS Troponin I.cardiac DL <= 0.01 ng/mL [Mass/Vol] 4 ng/L Normal 0 - 54 ng/L AH ADM SS Comment on above: Interpretive Data: High Sensitive Troponin I Reference Ranges: Female: 0-34 ng/L Male: 0-54 ng/L Testing performed on [employer] travel analyzer using direct chemiluminescent technology. Urea nitrogen [Mass/Vol] 12.0 mg/dL Normal 8.0 - 22.0 mg/dL AH ADM SS Urea nitrogen/Creatinine [Mass ratio] 12.4 ratio Normal 10.0 - 22.0 ratio AH ADM SS WBC (Bld) [#/Vol] 7.3 103/mcL Normal 4.5 - 10.8 10^3/mcL AH Workflow SS LABORATORYOrdered By: Maikel Carlson on 08-01-2025 ESR 15 minute reading (Bld) [Velocity] 8 mm/hr Normal 0 - 15 mm/hr AH Auto Heme SS LABORATORYOrdered By: Dion Fink on 08-01-2025 Appearance (U) Clear (08/01/25 2:44 AM) Normal Clear AH Auto Urine SS Bilirubin Ql (U) Negative (08/01/25 2:44 AM) Normal Neg-Trace AH Auto Urine SS Color (U) Yellow (08/01/25 2:44 AM) Normal AH Auto Urine SS Glucose Test strip (U) [Mass/Vol] Negative Normal Negative AH Auto Urine SS Hemoglobin Auto test strip (U) [Mass/Vol] Negative (08/01/25 2:44 AM) Normal Neg-Trace AH Auto Urine SS Ketones Ql (U) Negative Normal Neg-Trace AH Auto Urine SS UA Leuk Est Negative (08/01/25 2:44 AM) Normal Negative AH Auto Urine SS UA Nitrite Negative (08/01/25 2:44 AM) Normal Negative AH Auto Urine SS UA pH 7.5 (08/01/25 2:44 AM) Normal 5.0 - 8.0 AH Auto Urine SS UA Protein Negative Normal Negative AH Auto Urine SS UA Spec Grav 1.015 (08/01/25 2:44 AM) Normal 1.006-1.029 AH Auto Urine SS UA Specimen Type Void (08/01/25 2:44 AM) Normal Auto Urine SS UA Urobilinogen 1.0 E.U./dL Normal 0.2-1.0 Auto Urine SS LACon 08-01-2025 Lactic Acid Lvl 0.6 mmol/L Normal 0.5-2.2 [facility] Comment on above: Performed By: #### L AC, LIP, TROPHS, GFR, ADIFF, ESR, CBC, ANEU, CMP ####[facility] [place] [address] LIPon 08-01-2025 Lipase Level 33 U/L Normal 12-53 [facility] Comment on above: Performed By: #### L AC, LIP, TROPHS, GFR, ADIFF, ESR, CBC, ANEU, CMP ####[place] [address] MGon 08-01-2025 Magnesium [Mass/Vol] 2.2 mg/dL Normal 1.6-2.4 [facility] Comment on above: Performed By: #### M Philip, PRO #### [facility] [address] [place] [address] PROon 08-01-2025 INR Coag (PPP) [Relative time] 1.0 {INR} Normal [facility] Comment on above: Result Comment: [employer] (CHEST, 1992, 102:312S-25S) recommended therapeutic range for oral anticoagulant therapy is: LOW RISK: Prophylaxis of venous thrombosis INR: 2.0-3.0 Treatment of pulmonary embolism 2.0-3.0 Prevention of systemic embolism 2.0-3.0 HIGH RISK: Mechanical prosthetic valves 2.5-3.5 Performed By: #### M G, PRO #### [address] [address] PT Coag (PPP) [Time] 11.7 s Normal 9.0-14.4 [facility] Comment on above: Result Comment: Effe ctive 05/11/08, Protime results may be affected by some antibiotics (i.e. Ciprofloxacin, Azithromycin, Bactrim) which may potentiate the action of oral anticoagulants, with further increases in Protime/INR. Performed By: #### M G, PRO #### [place] [id number] TROPHSon 08-01-2025 High Sensitivity Troponin I 4 ng/L Normal 0-54 [facility] Comment on above: Result Comment: High Sensitive Troponin I Reference Ranges: Female: 0-34 ng/L Male: 0-54 ng/L Testing performed on [employer] IM analyzer using direct chemiluminescent technology. Performed By: #### L AC, LIP, TROPHS, GFR, ADIFF, ESR, CBC, ANEU, CMP ####[place] [address] UAon 08-01-2025 Color (U) Yellow Normal [facility] Comment on above: Performed By: #### U A ####[place] [address] Glucose (U) [Mass/Vol] Negative Normal Negative [facility] Comment on above: Performed By: #### U A ####[place] [address] Ketones Ql (U) Negative Normal Neg-Trace [facility] Comment on above: Performed By: #### U A ####[place] [address] UA Appear Clear Normal Clear [facility] Comment on above: Performed By: #### U A ####[place] [address] UA Blood Negative Normal Neg-Trace [facility] Comment on above: Performed By: #### U A ####[place] [address] UA Leuk Est Negative Normal Negative [facility] Comment on above: Performed By: #### U A ####[place] [address] UA Nitrite Negative Normal Negative [facility] Comment on above: Performed By: #### U A ####[place] [address] UA pH 7.5 Normal 5.0 - 8.0 [facility] Comment on above: Performed By: #### U A ####[place] [address] UA Protein Negative Normal Negative [facility] Comment on above: Performed By: #### U A ####[place] [id number] [address] [place], [place] [id number] UA Spec Grav 1.015 Normal 1.006-1.029 [facility] Comment on above: Performed By: #### U A ####[place] [address] UA Specimen Type Void Normal [facility] Comment on above: Performed By: #### U A ####[place] [address] UA Urobilinogen 1.0 E.U./dL Normal 0.2-1.0 [facility] Comment on above: Performed By: #### U A ####[place] [address] Urobilinogen (U) [Mass/Vol] Negative Normal Neg-Trace [facility] Comment on above: Performed By: #### U A ####[place] [address] US DOPPLER ABDOMENon US DOPPLER ABDOMEN ORIGINAL EXAMINATION: HEPATIC DOPPLER ULTRASOUND ONLY 08/01/2025 10:20 am COMPARISON: CTA abdomen and pelvis same day, abdominal ultrasound 07/31/2025, CT abdomen and pelvis 07/29/2025 HISTORY: ORDERING SYSTEM PROVIDED HISTORY: Reason for Exam: Please check the portal vein, hepatic event thrombosis FINDINGS: The visualized liver is normal in echotexture and echogenicity. The main portal vein is normal in caliber and patent. The portal venous system demonstrates normal directional flow. The hepatic veins are patent. IMPRESSION: No evidence of portal venous thrombosis. Normal portal venous directional flow. Interpreted by: Nba Moses Preliminary Report By: Nba Moses Electronically signed By Nba Moses Dictated Date: 08/01/2025 10:39:43 AM Prelim Date: 08/01/2025 10:42:48 AM Sign Date: 08/01/2025 10:42:48 AM Ordering Provider: JENNI BARNHART RP Normal [facility] .Auto Diffon 07-31-2025 Basophil, Absolute 0.0 10 3/mcL Normal 0.0-0.3 [facility] Comment on above: Performed By: #### M DW, ADIFF, LIP, CBC, CMP, ANEU, GFR ####[address] [address] Basophils/100 WBC (Bld) 0.5 % Normal 0.0-2.5 [facility] Comment on above: Performed By: #### M DW, ADIFF, LIP, CBC, CMP, ANEU, GFR ####[address] [address] Eosinophil, Absolute 0.1 10 3/mcL Normal 0.0-0.7 [facility] Comment on above: Performed By: #### M DW, ADIFF, LIP, CBC, CMP, ANEU, GFR ####[address] [address] Eosinophils/100 WBC (Bld) 1.4 % Normal 0.0-6.0 [facility] Comment on above: Performed By: #### M DW, ADIFF, LIP, CBC, CMP, ANEU, GFR ####[address] [address] Lymphocyte, Absolute 1.6 10 3/mcL Normal 0.9-4.3 [facility] Comment on above: Performed By: #### M DW, ADIFF, LIP, CBC, CMP, ANEU, GFR ####[address] [address] Lymphocytes/100 WBC (Bld) 21.6 % Normal 20.0-40.0 [facility] Comment on above: Performed By: #### M DW, ADIFF, LIP, CBC, CMP, ANEU, GFR ####[address] [address] Monocyte, Absolute 0.5 10 3/mcL Normal 0.1-1.4 [facility] Comment on above: Performed By: #### M DW, ADIFF, LIP, CBC, CMP, ANEU, GFR ####[address] [address] Monocytes/100 WBC (Bld) 6.2 % Normal 2.0-13.0 [facility] Comment on above: Performed By: #### M DW, ADIFF, LIP, CBC, CMP, ANEU, GFR ####[address] [address] Neutrophils/100 WBC (Bld) 70.3 % Normal 50.0-75.0 [facility] Comment on above: Performed By: #### M DW, ADIFF, LIP, CBC, CMP, ANEU, GFR ####[place] [address] .GFRon 07-31-2025 Estimated Glomerular Filtration Rate 106 ml/min/1.73sqm Normal [facility] Comment on above: Result Comment: Stages of Chronic Kidney Disease (CKD) Stage Description eGFR(ml/min/1.73 sq.m.) CKD 1 Normal kidney function or >=90 normal kindney function with possible kidney damage (ex. Proteinuria) CKD 2 Kidney damage with mild loss 60-89 of kidney function CKD 3a Mild to moderate loss of kidney 45-59 function CKD 3b Moderate to severe loss of 30-44 of kindey function CKD 4 Severe loss of kidney function 15-29 CKD 5 Kidney failure <15 Note: (go live 2024) the eGFR calculation was updated to the 2020 CKD-EPI creatinine equation without a race factor to calculate the eGFR results. Performed By: #### M DW, ADIFF, LIP, CBC, CMP, ANEU, GFR ####[place] [address] .MDWon 07-31-2025 Monocyte Distribution Width 16.41 Normal 0.00-20.00 [facility] Comment on above: Result Comment: For ED adult patients suspected of sepsis, MDW<=20.0 does not rule out sepsis or risk of sepsis Performed By: #### M DW, ADIFF, LIP, CBC, CMP, ANEU, GFR ####[place] [address] .NEUABSon 07-31-2025 Neutrophil, Absolute 5.2 10 3/mcL Normal 2.3-8.1 [facility] Comment on above: Performed By: #### M DW, ADIFF, LIP, CBC, CMP, ANEU, GFR ####[address] [address] CBCon 07-31-2025 Erythrocyte distribution width (RBC) [Ratio] 13.6 % Normal 11.5-15.5 [facility] Comment on above: Performed By: #### M DW, ADIFF, LIP, CBC, CMP, ANEU, GFR ####[place] [address] Hematocrit (Bld) [Volume fraction] 43.9 % Normal 40.0-52.0 [facility] Comment on above: Performed By: #### M DW, ADIFF, LIP, CBC, CMP, ANEU, GFR ####[place] [address] Hgb 15.6 G/dL Normal 13.0-17.5 [facility] Comment on above: Performed By: #### M DW, ADIFF, LIP, CBC, CMP, ANEU, GFR ####[place] [address] MCH (RBC) [Entitic mass] 31.3 pg Normal 27.0-33.0 [facility] Comment on above: Performed By: #### M DW, ADIFF, LIP, CBC, CMP, ANEU, GFR ####[place] [address] MCHC 35.5 G/dL Normal 32.0-36.0 [facility] Comment on above: Performed By: #### M DW, ADIFF, LIP, CBC, CMP, ANEU, GFR ####[place] [address] MCV (RBC) [Entitic vol] 88.3 fL Normal 81.0-100.0 [facility] Comment on above: Performed By: #### M DW, ADIFF, LIP, CBC, CMP, ANEU, GFR ####[place] [address] Platelet 210 10 3/mcL Normal 150-450 [facility] Comment on above: Performed By: #### M DW, ADIFF, LIP, CBC, CMP, ANEU, GFR ####[place] [address] Platelet mean volume (Bld) [Entitic vol] 6.6 fL Normal 6.4-10.5 [facility] Comment on above: Performed By: #### M DW, ADIFF, LIP, CBC, CMP, ANEU, GFR ####[place] [address] RBC 4.97 10 6/mcL Normal 4.50-6.00 [facility] Comment on above: Performed By: #### M DW, ADIFF, LIP, CBC, CMP, ANEU, GFR ####[place] [address] WBC 7.4 10 3/mcL Normal 4.5-10.8 [facility] Comment on above: Performed By: #### M DW, ADIFF, LIP, CBC, CMP, ANEU, GFR ####[place] [address] CMPon 07-31-2025 Albumin Level 4.4 G/dL Normal 3.2-4.8 [facility] Comment on above: Performed By: #### M DW, ADIFF, LIP, CBC, CMP, ANEU, GFR ####[place] [address] Albumin/Globulin [Mass ratio] 1.4 {ratio} Normal 0.9-1.6 [facility] Comment on above: Performed By: #### M DW, ADIFF, LIP, CBC, CMP, ANEU, GFR ####[place] [address] ALP [Catalytic activity/Vol] 59 U/L Normal 38-126 [facility] Comment on above: Performed By: #### M DW, ADIFF, LIP, CBC, CMP, ANEU, GFR ####[place] [address] ALT [Catalytic activity/Vol] 21 U/L Normal 12-55 [facility] Comment on above: Performed By: #### M DW, ADIFF, LIP, CBC, CMP, ANEU, GFR ####[place] [address] AST [Catalytic activity/Vol] 19 U/L Normal 8-34 [facility] Comment on above: Performed By: #### M DW, ADIFF, LIP, CBC, CMP, ANEU, GFR ####[place] [id number] Bili Total 1.10 mg/dL Normal 0.20-1.20 [facility] Comment on above: Result Comment: Use of this assay is not recommended for patients undergoing treatment with eltrombopag due to the potential for falsely elevated results. Performed By: #### M DW, ADIFF, LIP, CBC, CMP, ANEU, GFR ####[place] [address] BUN/Creatinine Ratio 12.4 ratio Normal 10.0-22.0 [facility] Comment on above: Performed By: #### M DW, ADIFF, LIP, CBC, CMP, ANEU, GFR ####[place] [address] Calcium [Mass/Vol] 10.2 mg/dL Normal 8.7-10.4 [facility] Comment on above: Performed By: #### M DW, ADIFF, LIP, CBC, CMP, ANEU, GFR ####[place] [address] Chloride [Moles/Vol] 107 mmol/L Normal 98-110 [facility] Comment on above: Performed By: #### M DW, ADIFF, LIP, CBC, CMP, ANEU, GFR ####[place] [address] CO2 [Moles/Vol] 26 mmol/L Normal 22-32 [facility] Comment on above: Performed By: #### M DW, ADIFF, LIP, CBC, CMP, ANEU, GFR ####[place] [address] Creatinine [Mass/Vol] 0.97 mg/dL Normal 0.60-1.40 [facility] Comment on above: Result Comment: Test ing performed on [employer] analyzer using enzymatic creatinine methodology. Performed By: #### M DW, ADIFF, LIP, CBC, CMP, ANEU, GFR ####[place] [address] Electrolyte Balance 7.0 mEq/L Normal 4.0-15.0 [facility] Comment on above: Performed By: #### M DW, ADIFF, LIP, CBC, CMP, ANEU, GFR ####[address] [address] Globulin 3.1 G/dL Normal 2.5-4.2 [facility] Comment on above: Performed By: #### M DW, ADIFF, LIP, CBC, CMP, ANEU, GFR ####[place] [id number] Glucose [Mass/Vol] 110 mg/dL Normal 70-110 [facility] Comment on above: Performed By: #### M DW, ADIFF, LIP, CBC, CMP, ANEU, GFR ####[place] [address] Potassium [Moles/Vol] 3.8 mmol/L Normal 3.5-5.0 [facility] Comment on above: Performed By: #### M DW, ADIFF, LIP, CBC, CMP, ANEU, GFR ####[place] [address] Sodium [Moles/Vol] 140 mmol/L Normal 136-145 [facility] Comment on above: Performed By: #### M DW, ADIFF, LIP, CBC, CMP, ANEU, GFR ####[place] [address] Total Protein 7.5 G/dL Normal 5.7-8.2 [facility] Comment on above: Performed By: #### M DW, ADIFF, LIP, CBC, CMP, ANEU, GFR ####[place] [address] Urea nitrogen [Mass/Vol] 12.0 mg/dL Normal 8.0-22.0 [facility] Comment on above: Performed By: #### M DW, ADIFF, LIP, CBC, CMP, ANEU, GFR ####[address] [address] LABORATORYOrdered By: SYSTEM SYSTEM on 07-31-2025 Albumin BCP dye [Mass/Vol] 4.4 G/dL Normal 3.2 - 4.8 G/dL AH ADM SS Albumin/Globulin [Mass ratio] 1.4 {ratio} Normal 0.9 - 1.6 ratio AH ADM SS ALP [Catalytic activity/Vol] 59 U/L Normal 38 - 126 U/L AH ADM SS ALT No additional P-5'-P [Catalytic activity/Vol] 21 U/L Normal 12 - 55 U/L AH ADM SS AST [Catalytic activity/Vol] 19 U/L Normal 8 - 34 U/L AH ADM SS Basophils (Bld) [#/Vol] 0.0 103/mcL Normal 0.0 - 0.3 10^3/mcL Workflow SS Basophils/100 WBC (Bld) 0.5 % Normal 0.0 - 2.5 % Workflow SS Bilirubin [Mass/Vol] 1.10 mg/dL Normal 0.20 - 1.20 mg/dL ADM SS Comment on above: Interpretive Data: U se of this assay is not recommended for patients undergoing treatment with eltrombopag due to the potential for falsely elevated results. Calcium [Mass/Vol] 10.2 mg/dL Normal 8.7 - 10. 4 mg/dL AH ADM SS Chloride [Moles/Vol] 107 mmol/L Normal 98 - 11 0 mEq/L AH ADM SS CO2 [Moles/Vol] 26 mmol/L Normal 22 - 32 mEq/L AH ADM SS Creatinine [Mass/Vol] 0.97 mg/dL Normal 0.60 - 1.40 mg/dL AH ADM SS Comment on above: Interpretive Data: T esting performed on [employer] CH analyzer using enzymatic creatinine methodology. Electrolyte Balance 7.0 mEq/L Normal 4.0 - 15 .0 mEq/L AH ADM SS Eosinophils (Bld) [#/Vol] 0.1 103/mcL Normal 0.0 - 0.7 10^3/mcL Workflow SS Eosinophils/100 WBC (Bld) 1.4 % Normal 0.0 - 6.0 % Workflow SS Erythrocyte distribution width (RBC) [Ratio] 13.6 % Normal 11.5 - 15.5 % Workflow SS Globulin 3.1 G/dL Normal 2.5 - 4.2 G/dL ADM SS GLOMERULAR FILTRATION RATE/1.73 SQ M.PREDICTED:ARVRAT:PT :SER/PLAS/BLD:QN:CREA TININE-BASED FORMULA (CKD-EPI 2020) 106 ml/min/1.73sqm Invalid Interpretation Code ADM SS Comment on above: Interpretive Data: Stages of Chronic Kidney Disease (CKD) Stage Description eGFR(ml/min/1.73 sq.m.) CKD 1 Normal kidney function or >=90 normal kindney function with possible kidney damage (ex. Proteinuria) CKD 2 Kidney damage with mild loss 60-89 of kidney function CKD 3a Mild to moderate loss of kidney 45-59 function CKD 3b Moderate to severe loss of 30-44 of kindey function CKD 4 Severe loss of kidney function 15-29 CKD 5 Kidney failure <15 Note: (go live 2024) the eGFR calculation was updated to the 2020 CKD-EPI creatinine equation without a race factor to calculate the eGFR results. Glucose [Mass/Vol] 110 mg/dL Normal 70 - 110 mg/dL ADM SS Hematocrit (Bld) [Volume fraction] 43.9 % Normal 40.0 - 52.0 % AH Workflow SS Hemoglobin (Bld) [Mass/Vol] 15.6 G/dL Normal 13.0 - 17.5 G/dL AH Workflow SS Lipase [Catalytic activity/Vol] 29 U/L Normal 12 - 53 U/L ADM SS Lymphocytes (Bld) [#/Vol] 1.6 103/mcL Normal 0.9 - 4.3 10^3/mcL AH Workflow SS Lymphocytes/100 WBC (Bld) 21.6 % Normal 20.0 - 40.0 % AH Workflow SS MCH (RBC) [Entitic mass] 31.3 pg Normal 27.0 - 33.0 pg AH Workflow SS MCHC 35.5 G/dL Normal 32.0 - 36.0 G/dL AH Workflow SS MCV (RBC) [Entitic vol] 88.3 fL Normal 81.0 - 100.0 fL AH Workflow SS Monocyte distribution width Auto (Bld) [Entitic vol] 16.41 1 Normal 0.00 - 20.00 Workflow SS Comment on above: Result Comment: For ED adult patients suspected of sepsis, MDW<=20.0 does not rule out sepsis or risk of sepsis Monocytes (Bld) [#/Vol] 0.5 103/mcL Normal 0.1 - 1.4 10^3/mcL AH Workflow SS Monocytes/100 WBC (Bld) 6.2 % Normal 2.0 - 13.0 % AH Workflow SS Neutrophils (Bld) [#/Vol] 5.2 103/mcL Normal 2.3 - 8.1 10^3/mcL AH Workflow SS Neutrophils/100 WBC (Bld) 70.3 % Normal 50.0 - 75.0 % AH Workflow SS Platelet mean volume (Bld) [Entitic vol] 6.6 fL Normal 6.4 - 10.5 fL AH Workflow SS Platelets (Bld) [#/Vol] 210 103/mcL Normal 150 - 450 10^3/mcL AH Workflow SS Potassium [Moles/Vol] 3.8 mmol/L Normal 3.5 - 5.0 mEq/L ADM SS Protein [Mass/Vol] 7.5 G/dL Normal 5.7 - 8.2 G/dL ADM SS RBC (Bld) [#/Vol] 4.97 106/mcL Normal 4.50 - 6.0 0 10^6/mcL AH Workflow SS Sodium [Moles/Vol] 140 mmol/L Normal 136 - 145 mEq/L ADM SS Urea nitrogen [Mass/Vol] 12.0 mg/dL Normal 8.0 - 22.0 mg/dL ADM SS Urea nitrogen/Creatinine [Mass ratio] 12.4 ratio Normal 10.0 - 22.0 ratio ADM SS WBC (Bld) [#/Vol] 7.4 103/mcL Normal 4.5 - 10.8 10^3/mcL Workflow SS LIPon 07-31-2025 Lipase Level 29 U/L Normal 12-53 [facility] Comment on above: Performed By: #### M DW, ADIFF, LIP, CBC, CMP, ANEU, GFR ####[place] [address] US ABDOMEN LIMITEDon 025 US ABDOMEN LIMITED ORIGINAL EXAMINATION: RIGHT UPPER QUADRANT ULTRASOUND 07/31/2025 11:40 pm COMPARISON: CT abdomen and pelvis 07/29/2025. HISTORY: ORDERING SYSTEM PROVIDED HISTORY: Reason for Exam: post Prandial abdominal pain FINDINGS: LIVER: The liver demonstrates normal echogenicity without evidence of intrahepatic biliary ductal dilatation. The liver measures 16.7 cm. No focal hepatic lesion is seen. The main portal vein demonstrates antegrade flow. BILIARY SYSTEM: Gallbladder is unremarkable without evidence of pericholecystic fluid, wall thickening or stones. Negative sonographic Pagan's sign. Common bile duct is within normal limits measuring 2 mm. RIGHT KIDNEY: The right kidney is grossly unremarkable without evidence of hydronephrosis. The right kidney measures 11.2 x 5.7 x 6.3 cm. PANCREAS: Visualized portions of the pancreas are unremarkable. OTHER: No evidence of right upper quadrant ascites. IMPRESSION: Unremarkable right upper quadrant ultrasound. I have personally reviewed the images of this examination and agree with the resident's findings and interpretation. Interpreted by: Jon Randall Preliminary Report By: John Cloud Electronically signed By Jon Randall Dictated Date: 07/31/2025 11:43:33 PM Prelim Date: 07/31/2025 11:46:42 PM Sign Date: 07/31/2025 11:48:16 PM Ordering Provider: JON SANCHEZ RP Normal [facility] .Auto Diffon 07-30-2025 Basophil, Absolute 0.0 10 3/mcL Normal 0.0-0.3 [facility] Comment on above: Performed By: #### T ROPHS, GFR, CBC, ADIFF, MDW, CMP, MG, ANEU, LIP #### [address] [address] Basophils/100 WBC (Bld) 0.6 % Normal 0.0-2.5 [facility] Comment on above: Performed By: #### T ROPHS, GFR, CBC, ADIFF, MDW, CMP, MG, ANEU, LIP #### [address] [address] Eosinophil, Absolute 0.2 10 3/mcL Normal 0.0-0.7 [facility] Comment on above: Performed By: #### T ROPHS, GFR, CBC, ADIFF, MDW, CMP, MG, ANEU, LIP #### [address] [address] Eosinophils/100 WBC (Bld) 2.4 % Normal 0.0-6.0 [facility] Comment on above: Performed By: #### T ROPHS, GFR, CBC, ADIFF, MDW, CMP, MG, ANEU, LIP #### [address] [address] Lymphocyte, Absolute 1.9 10 3/mcL Normal 0.9-4.3 [facility] Comment on above: Performed By: #### T KE, GFR, CBC, ADIFF, MDW, CMP, MG, ANEU, LIP #### [address] [address] Lymphocytes/100 WBC (Bld) 23.9 % Normal 20.0-40.0 [facility] Comment on above: Performed By: #### T LULAHS, GFR, CBC, ADIFF, MDW, CMP, MG, ANEU, LIP #### [address] [address] Monocyte, Absolute 0.7 10 3/mcL Normal 0.1-1.4 [facility] Comment on above: Performed By: #### T KE, GFR, CBC, ADIFF, MDW, CMP, MG, ANEU, LIP #### [address] [address] Monocytes/100 WBC (Bld) 8.4 % Normal 2.0-13.0 [facility] Comment on above: Performed By: #### T KE, GFR, CBC, ADIFF, MDW, CMP, MG, ANEU, LIP #### [address] [address] Neutrophils/100 WBC (Bld) 64.7 % Normal 50.0-75.0 [facility] Comment on above: Performed By: #### T KE, GFR, CBC, ADIFF, MDW, CMP, MG, ANEU, LIP #### [address] [address] .GFRon 07-30-2025 Estimated Glomerular Filtration Rate 97 ml/min/1.73sqm Normal [facility] Comment on above: Result Comment: Stages of Chronic Kidney Disease (CKD) Stage Description eGFR(ml/min/1.73 sq.m.) CKD 1 Normal kidney function or >=90 normal kindney function with possible kidney damage (ex. Proteinuria) CKD 2 Kidney damage with mild loss 60-89 of kidney function CKD 3a Mild to moderate loss of kidney 45-59 function CKD 3b Moderate to severe loss of 30-44 of kindey function CKD 4 Severe loss of kidney function 15-29 CKD 5 Kidney failure <15 Note: (go live 2024) the eGFR calculation was updated to the 2020 CKD-EPI creatinine equation without a race factor to calculate the eGFR results. Performed By: #### T LULAHS, GFR, CBC, ADIFF, MDW, CMP, MG, ANEU, LIP #### [place] [address] .MDWon 07-30-2025 Monocyte Distribution Width 16.13 Normal 0.00-20.00 [facility] Comment on above: Result Comment: For ED adult patients suspected of sepsis, MDW<=20.0 does not rule out sepsis or risk of sepsis Performed By: #### T KE, GFR, CBC, ADIFF, MDW, CMP, MG, ANEU, LIP #### [place] [address] .NEUABSon 07-30-2025 Neutrophil, Absolute 5.2 10 3/mcL Normal 2.3-8.1 [facility] Comment on above: Performed By: #### T KE, GFR, CBC, ADIFF, MDW, CMP, MG, ANEU, LIP #### [place] [address] CBCon 07-30-2025 Erythrocyte distribution width (RBC) [Ratio] 13.3 % Normal 11.5-15.5 [facility] Comment on above: Performed By: #### T LULAHS, GFR, CBC, ADIFF, MDW, CMP, MG, ANEU, LIP #### [place] [address] Hematocrit (Bld) [Volume fraction] 41.7 % Normal 40.0-52.0 [facility] Comment on above: Performed By: #### T KE, GFR, CBC, ADIFF, MDW, CMP, MG, ANEU, LIP #### [place] [address] Hgb 14.5 G/dL Normal 13.0-17.5 [facility] Comment on above: Performed By: #### T KE, GFR, CBC, ADIFF, MDW, CMP, MG, ANEU, LIP #### [place] [id number] MCH (RBC) [Entitic mass] 31.0 pg Normal 27.0-33.0 [facility] Comment on above: Performed By: #### T LULAHS, GFR, CBC, ADIFF, MDW, CMP, MG, ANEU, LIP #### [place] [address] MCHC 34.7 G/dL Normal 32.0-36.0 [facility] Comment on above: Performed By: #### T KE, GFR, CBC, ADIFF, MDW, CMP, MG, ANEU, LIP #### [place] [address] MCV (RBC) [Entitic vol] 89.2 fL Normal 81.0-100.0 [facility] Comment on above: Performed By: #### T KE, GFR, CBC, ADIFF, MDW, CMP, MG, ANEU, LIP #### [place] [id number] Platelet 191 10 3/mcL Normal 150-450 [facility] Comment on above: Performed By: #### T KE, GFR, CBC, ADIFF, MDW, CMP, MG, ANEU, LIP #### [place] [address] Platelet mean volume (Bld) [Entitic vol] 6.7 fL Normal 6.4-10.5 [facility] Comment on above: Performed By: #### T KE, GFR, CBC, ADIFF, MDW, CMP, MG, ANEU, LIP #### [place] [address] RBC 4.68 10 6/mcL Normal 4.50-6.00 [facility] Comment on above: Performed By: #### T ROPHS, GFR, CBC, ADIFF, MDW, CMP, MG, ANEU, LIP #### [address] [address] WBC 8.0 10 3/mcL Normal 4.5-10.8 [facility] Comment on above: Performed By: #### T LULAHS, GFR, CBC, ADIFF, MDW, CMP, MG, ANEU, LIP #### [address] [address] CMPon 07-30-2025 Albumin Level 4.0 G/dL Normal 3.5-5.0 [facility] Comment on above: Performed By: #### T KE, GFR, CBC, ADIFF, MDW, CMP, MG, ANEU, LIP #### [address] [address] Albumin/Globulin [Mass ratio] 1.3 {ratio} Normal 1.1-2.5 [facility] Comment on above: Performed By: #### T KE, GFR, CBC, ADIFF, MDW, CMP, MG, ANEU, LIP #### [address] [address] ALP [Catalytic activity/Vol] 63 U/L Normal 40-135 [facility] Comment on above: Performed By: #### T KE, GFR, CBC, ADIFF, MDW, CMP, MG, ANEU, LIP #### [address] [address] ALT [Catalytic activity/Vol] 33 U/L Normal 16-63 [facility] Comment on above: Performed By: #### T KE, GFR, CBC, ADIFF, MDW, CMP, MG, ANEU, LIP #### [address] [address] AST [Catalytic activity/Vol] 21 U/L Normal 10-40 [facility] Comment on above: Performed By: #### T LULAHS, GFR, CBC, ADIFF, MDW, CMP, MG, ANEU, LIP #### [address] [address] Bili Total 0.9 mg/dL Normal 0.2-1.0 [facility] Comment on above: Result Comment: Use of this assay is not recommended for patients undergoing treatment with eltrombopag due to the potential for falsely elevated results. Performed By: #### T KE, GFR, CBC, ADIFF, MDW, CMP, MG, ANEU, LIP #### [address] [address] BUN/Creatinine Ratio 9 ratio Normal 7-27 [facility] Comment on above: Performed By: #### T KE, GFR, CBC, ADIFF, MDW, CMP, MG, ANEU, LIP #### [address] [address] Calcium [Mass/Vol] 8.9 mg/dL Normal 8.4-10.2 [facility] Comment on above: Performed By: #### T KE, GFR, CBC, ADIFF, MDW, CMP, MG, ANEU, LIP #### [address] [address] Chloride [Moles/Vol] 105 mmol/L Normal 98-107 [facility] Comment on above: Performed By: #### T KE, GFR, CBC, ADIFF, MDW, CMP, MG, ANEU, LIP #### [address] [address] CO2 [Moles/Vol] 30 mmol/L High 22-29 [facility] Comment on above: Performed By: #### T KE, GFR, CBC, ADIFF, MDW, CMP, MG, ANEU, LIP #### [address] [address] Creatinine [Mass/Vol] 1.04 mg/dL Normal 0.67-1.17 [facility] Comment on above: Performed By: #### T KE, GFR, CBC, ADIFF, MDW, CMP, MG, ANEU, LIP #### [address] [address] Electrolyte Balance 7.0 mEq/L Normal 4.0-15.0 [facility] Comment on above: Performed By: #### T ROPHS, GFR, CBC, ADIFF, MDW, CMP, MG, ANEU, LIP #### [address] [address] Globulin 3.0 G/dL Normal 2.7-4.4 [facility] Comment on above: Performed By: #### T LULAHS, GFR, CBC, ADIFF, MDW, CMP, MG, ANEU, LIP #### [address] [address] Glucose [Mass/Vol] 108 mg/dL High 70-105 [facility] Comment on above: Performed By: #### T KE, GFR, CBC, ADIFF, MDW, CMP, MG, ANEU, LIP #### [address] [address] Potassium [Moles/Vol] 3.8 mmol/L Normal 3.5-5.1 [facility] Comment on above: Performed By: #### T KE, GFR, CBC, ADIFF, MDW, CMP, MG, ANEU, LIP #### [address] [address] Sodium [Moles/Vol] 142 mmol/L Normal 136-145 [facility] Comment on above: Performed By: #### T KE, GFR, CBC, ADIFF, MDW, CMP, MG, ANEU, LIP #### [address] [address] Total Protein 7.0 G/dL Normal 6.4-8.2 [facility] Comment on above: Performed By: #### T KE, GFR, CBC, ADIFF, MDW, CMP, MG, ANEU, LIP #### [address] [address] Urea nitrogen [Mass/Vol] 9 mg/dL Normal 7-18 [facility] Comment on above: Performed By: #### T KE, GFR, CBC, ADIFF, MDW, CMP, MG, ANEU, LIP #### [address] [address] [address] ANGIOGRAPHY CHEST W/CONTR Francis 10-03-2025 CT ANGIOGRAPHY CHEST W/CONTRAST ORIGINAL EXAMINATION: CTA of the chest was performed after the administration of intravenous contrast. Multiplanar reformatted images are provided for review. MIP images are provided for review. Automated exposure control, iterative reconstruction, and/or weight based adjustment of the mA/kV was utilized to reduce the radiation dose to as low as reasonably achievable.07/30/2025 10:21 pm COMPARISON: Chest x-ray 07/29/2025 HISTORY: ORDERING SYSTEM PROVIDED HISTORY: Reason for Exam: chest pain; suspect PE FINDINGS: HEART AND VESSELS: No pulmonary arterial filling defect is evident on this study. No pericardial effusion. Normal caliber great vessels. LUNGS/PLEURA: Patent tracheobronchial tree. No consolidation, effusion, or pneumothorax. LYMPH: No mediastinal, axillary, or supraclavicular adenopathy. SOFT TISSUE/BONES: Mild bilateral gynecomastia. No acute fracture. UPPER ABDOMEN: No acute finding on the limited upper abdominal images on this study. Please see CT abdomen pelvis from 07/29/2025. IMPRESSION: No evidence of acute pulmonary embolism or other acute process in the chest. I have personally reviewed the images of this examination and agree with the resident's findings and interpretation. Interpreted by: Nba Baker Preliminary Report By: Darwin Mackay Electronically signed By Nba Baker Dictated Date: 07/30/2025 11:09:54 PM Prelim Date: 07/30/2025 11:14:08 PM Sign Date: 07/30/2025 11:31:44 PM Ordering Provider: DELLA VELASQUEZ RP [facility] SYSTEM SYSTEM on 07-30-2025 Troponin I.cardiac DL <= 0.01 ng/mL [Mass/Vol] 5 ng/L Normal 0 - 76 ng/L AO ADM SS Comment on above: Interpretive Data: H igh Sensitive Troponin I Reference Ranges: Female: 0-51 ng/L Male: 0-76 ng/L Testing performed on [employer] using a homogeneous sandwich chemiluminescent immunoassay based on [employer] technology. Albumin BCP dye [Mass/Vol] 4.0 G/dL Normal 3.5 - 5.0 G/dL AO ADM SS Albumin/Globulin [Mass ratio] 1.3 {ratio} Normal 1.1 - 2.5 ratio AO ADM SS ALP [Catalytic activity/Vol] 63 U/L Normal 40 - 135 U/L AO ADM SS ALT With P-5'-P [Catalytic activity/Vol] 33 U/L Normal 16 - 63 U/L AO ADM SS AST With P-5'-P [Catalytic activity/Vol] 21 U/L Normal 10 - 40 U/L AO ADM SS Basophils (Bld) [#/Vol] 0.0 103/mcL Normal 0.0 - 0.3 10^3/mcL AO Workflow SS Basophils/100 WBC (Bld) 0.6 % Normal 0.0 - 2.5 % AO Workflow SS Bilirubin [Mass/Vol] 0.9 mg/dL Normal 0.2 - 1 .0 mg/dL AO ADM SS Comment on above: Interpretive Data: U se of this assay is not recommended for patients undergoing treatment with eltrombopag due to the potential for falsely elevated results. Calcium [Mass/Vol] 8.9 mg/dL Normal 8.4 - 10. 2 mg/dL AO ADM SS Chloride [Moles/Vol] 105 mmol/L Normal 98 - 10 7 mmol/L AO ADM SS CO2 [Moles/Vol] 30 mmol/L High 22 - 29 mmol/L AO ADM SS Creatinine [Mass/Vol] 1.04 mg/dL Normal 0.67 - 1.17 mg/dL AO ADM SS Electrolyte Balance 7.0 mEq/L Normal 4.0 - 15 .0 mEq/L AO ADM SS Eosinophil, Absolute 0.2 103/mcL Normal 0.0 - 0 .7 10^3/mcL AO Workflow SS Eosinophils/100 WBC (Bld) 2.4 % Normal 0.0 - 6.0 % AO Workflow SS Erythrocyte distribution width (RBC) [Ratio] 13.3 % Normal 11.5 - 15.5 % AO Workflow SS Globulin 3.0 G/dL Normal 2.7 - 4.4 G/dL AO ADM SS GLOMERULAR FILTRATION RATE/1.73 SQ M.PREDICTED:ARVRAT:PT :SER/PLAS/BLD:QN:CREA TININE-BASED FORMULA (CKD-EPI 2020) 97 ml/min/1.73sqm Invalid Interpretation Code AO Chemistry S Comment on above: Interpretive Data: Stages of Chronic Kidney Disease (CKD) Stage Description eGFR(ml/min/1.73 sq.m.) CKD 1 Normal kidney function or >=90 normal kindney function with possible kidney damage (ex. Proteinuria) CKD 2 Kidney damage with mild loss 60-89 of kidney function CKD 3a Mild to moderate loss of kidney 45-59 function CKD 3b Moderate to severe loss of 30-44 of kindey function CKD 4 Severe loss of kidney function 15-29 CKD 5 Kidney failure <15 Note: (go live 2024) the eGFR calculation was updated to the 2020 CKD-EPI creatinine equation without a race factor to calculate the eGFR results. Glucose [Mass/Vol] 108 mg/dL High 70 - 105 mg/dL AO ADM SS Hematocrit (Bld) [Volume fraction] 41.7 % Normal 40.0 - 52.0 % AO Workflow SS Hemoglobin (Bld) [Mass/Vol] 14.5 G/dL Normal 13.0 - 17.5 G/dL AO Workflow SS Lipase [Catalytic activity/Vol] 21 U/L Normal 16 - 77 U/L AO ADM SS Lymphocytes (Bld) [#/Vol] 1.9 103/mcL Normal 0.9 - 4.3 10^3/mcL AO Workflow SS Lymphocytes/100 WBC (Bld) 23.9 % Normal 20.0 - 40.0 % AO Workflow SS MCH (RBC) [Entitic mass] 31.0 pg Normal 27.0 - 33.0 pg AO Workflow SS MCHC 34.7 G/dL Normal 32.0 - 36.0 G/dL AO Workflow SS MCV (RBC) [Entitic vol] 89.2 fL Normal 81.0 - 100.0 fL AO Workflow SS Monocyte distribution width Auto (Bld) [Entitic vol] 16.13 1 Normal 0.00 - 20.00 AO Workflow SS Comment on above: Result Comment: For ED adult patients suspected of sepsis, MDW<=20.0 does not rule out sepsis or risk of sepsis Monocytes (Bld) [#/Vol] 0.7 103/mcL Normal 0.1 - 1.4 10^3/mcL AO Workflow SS Monocytes/100 WBC (Bld) 8.4 % Normal 2.0 - 13.0 % AO Workflow SS Neutrophils (Bld) [#/Vol] 5.2 103/mcL Normal 2.3 - 8.1 10^3/mcL AO Workflow SS Neutrophils/100 WBC (Bld) 64.7 % Normal 50.0 - 75.0 % AO Workflow SS Platelet mean volume (Bld) [Entitic vol] 6.7 fL Normal 6.4 - 10.5 fL AO Workflow SS Platelets (Bld) [#/Vol] 191 103/mcL Normal 150 - 450 10^3/mcL AO Workflow SS Potassium [Moles/Vol] 3.8 mmol/L Normal 3.5 - 5.1 mmol/L AO ADM SS Protein [Mass/Vol] 7.0 G/dL Normal 6.4 - 8.2 G/dL AO ADM SS RBC (Bld) [#/Vol] 4.68 106/mcL Normal 4.50 - 6.0 0 10^6/mcL AO Workflow SS Sodium [Moles/Vol] 142 mmol/L Normal 136 - 145 mmol/L AO ADM SS Urea nitrogen [Mass/Vol] 9 mg/dL Normal 7 - 18 mg/dL AO ADM SS Urea nitrogen/Creatinine [Mass ratio] 9 ratio Normal 7 - 27 ratio AO ADM SS WBC (Bld) [#/Vol] 8.0 103/mcL Normal 4.5 - 10.8 10^3/mcL AO Workflow SS LIPon 07-30-2025 Lipase Level 21 U/L Normal 16-77 [facility] Comment on above: Performed By: #### T KE, GFR, CBC, [place], CMP, MG, ANEU, LIP #### [address] [address] TROPHSon 07-30-2025 High Sensitivity Troponin I 5 ng/L Normal 0-76 [facility] Comment on above: Result Comment: High Sensitive Troponin I Reference Ranges: Female: 0-51 ng/L Male: 0-76 ng/L Testing performed on [employer] using a homogeneous sandwich chemiluminescent immunoassay based on [employer] technology. Performed By: #### T KE, GFR, CBC, [place], CMP, MG, ANEU, LIP #### [address] [address] .Auto Diffon 07-29-2025 Basophil, Absolute 0.0 10 3/mcL Normal 0.0-0.3 [facility] Comment on above: Performed By: #### T KE, GFR, CBC, ADIFF, MDW, CMP, MG, ANEU, LIP #### [address] [address] Basophils/100 WBC (Bld) 0.5 % Normal 0.0-2.5 [facility] Comment on above: Performed By: #### T ROPHS, GFR, CBC, ADIFF, MDW, CMP, MG, ANEU, LIP #### [address] [address] Eosinophil, Absolute 0.2 10 3/mcL Normal 0.0-0.7 [facility] Comment on above: Performed By: #### T ROPHS, GFR, CBC, ADIFF, MDW, CMP, MG, ANEU, LIP #### [address] [address] Eosinophils/100 WBC (Bld) 2.2 % Normal 0.0-6.0 [facility] Comment on above: Performed By: #### T ROPHS, GFR, CBC, ADIFF, MDW, CMP, MG, ANEU, LIP #### [address] [address] Lymphocyte, Absolute 1.7 10 3/mcL Normal 0.9-4.3 [facility] Comment on above: Performed By: #### T ROPHS, GFR, CBC, ADIFF, MDW, CMP, MG, ANEU, LIP #### [address] [address] Lymphocytes/100 WBC (Bld) 21.5 % Normal 20.0-40.0 [facility] Comment on above: Performed By: #### T ROPHS, GFR, CBC, ADIFF, MDW, CMP, MG, ANEU, LIP #### [address] [address] Monocyte, Absolute 0.8 10 3/mcL Normal 0.1-1.4 [facility] Comment on above: Performed By: #### T ROPHS, GFR, CBC, ADIFF, MDW, CMP, MG, ANEU, LIP #### [address] [address] Monocytes/100 WBC (Bld) 10.2 % Normal 2.0-13.0 [facility] Comment on above: Performed By: #### T LULAHS, GFR, CBC, ADIFF, MDW, CMP, MG, ANEU, LIP #### [address] [address] Neutrophils/100 WBC (Bld) 65.6 % Normal 50.0-75.0 [facility] Comment on above: Performed By: #### T LULAHS, GFR, CBC, ADIFF, MDW, CMP, MG, ANEU, LIP #### [address] [address] .GFRon 07-29-2025 Estimated Glomerular Filtration Rate 98 ml/min/1.73sqm Normal [facility] Comment on above: Result Comment: Stages of Chronic Kidney Disease (CKD) Stage Description eGFR(ml/min/1.73 sq.m.) CKD 1 Normal kidney function or >=90 normal kindney function with possible kidney damage (ex. Proteinuria) CKD 2 Kidney damage with mild loss 60-89 of kidney function CKD 3a Mild to moderate loss of kidney 45-59 function CKD 3b Moderate to severe loss of 30-44 of kindey function CKD 4 Severe loss of kidney function 15-29 CKD 5 Kidney failure <15 Note: (go live 2024) the eGFR calculation was updated to the 2020 CKD-EPI creatinine equation without a race factor to calculate the eGFR results. Performed By: #### T KE, GFR, CBC, ADIFF, MDW, CMP, MG, ANEU, LIP #### [address] [address] .MDWon 07-29-2025 Monocyte Distribution Width 19.08 Normal 0.00-20.00 [facility] Comment on above: Result Comment: For ED adult patients suspected of sepsis, MDW<=20.0 does not rule out sepsis or risk of sepsis Performed By: #### T LULAHS, GFR, CBC, ADIFF, MDW, CMP, MG, ANEU, LIP #### [address] [address] .NEUABSon 07-29-2025 Neutrophil, Absolute 5.2 10 3/mcL Normal 2.3-8.1 [facility] Comment on above: Performed By: #### T KE, GFR, CBC, ADIFF, MDW, CMP, MG, ANEU, LIP #### [address] [address] CBCon 07-29-2025 Erythrocyte distribution width (RBC) [Ratio] 13.4 % Normal 11.5-15.5 [facility] Comment on above: Performed By: #### T KE, GFR, CBC, ADIFF, MDW, CMP, MG, ANEU, LIP #### [place] [address] Hematocrit (Bld) [Volume fraction] 40.9 % Normal 40.0-52.0 [facility] Comment on above: Performed By: #### T KE, GFR, CBC, ADIFF, MDW, CMP, MG, ANEU, LIP #### [place] [address] Hgb 14.1 G/dL Normal 13.0-17.5 [facility] Comment on above: Performed By: #### T KE, GFR, CBC, ADIFF, MDW, CMP, MG, ANEU, LIP #### [place] [address] MCH (RBC) [Entitic mass] 31.0 pg Normal 27.0-33.0 [facility] Comment on above: Performed By: #### T KE, GFR, CBC, ADIFF, MDW, CMP, MG, ANEU, LIP #### [place] [address] MCHC 34.5 G/dL Normal 32.0-36.0 [facility] Comment on above: Performed By: #### T KE, GFR, CBC, ADIFF, MDW, CMP, MG, ANEU, LIP #### [place] [address] MCV (RBC) [Entitic vol] 89.7 fL Normal 81.0-100.0 [facility] Comment on above: Performed By: #### T ROPHS, GFR, CBC, ADIFF, MDW, CMP, MG, ANEU, LIP #### [address] [address] Platelet 187 10 3/mcL Normal 150-450 [facility] Comment on above: Performed By: #### T ROPHS, GFR, CBC, ADIFF, MDW, CMP, MG, ANEU, LIP #### [address] [address] Platelet mean volume (Bld) [Entitic vol] 6.7 fL Normal 6.4-10.5 [facility] Comment on above: Performed By: #### T LULAHS, GFR, CBC, ADIFF, MDW, CMP, MG, ANEU, LIP #### [address] [address] RBC 4.56 10 6/mcL Normal 4.50-6.00 [facility] Comment on above: Performed By: #### T ROPHS, GFR, CBC, ADIFF, MDW, CMP, MG, ANEU, LIP #### [address] [address] WBC 7.9 10 3/mcL Normal 4.5-10.8 [facility] Comment on above: Performed By: #### T KE, GFR, CBC, ADIFF, MDW, CMP, MG, ANEU, LIP #### [address] [address] CMPon 07-29-2025 Albumin Level 3.9 G/dL Normal 3.5-5.0 [facility] Comment on above: Performed By: #### T ROPHS, GFR, CBC, ADIFF, MDW, CMP, MG, ANEU, LIP #### [address] [address] Albumin/Globulin [Mass ratio] 1.3 {ratio} Normal 1.1-2.5 [facility] Comment on above: Performed By: #### T ROPHS, GFR, CBC, ADIFF, MDW, CMP, MG, ANEU, LIP #### [address] [address] ALP [Catalytic activity/Vol] 60 U/L Normal 40-135 [facility] Comment on above: Performed By: #### T LULAHS, GFR, CBC, ADIFF, MDW, CMP, MG, ANEU, LIP #### [address] [address] ALT [Catalytic activity/Vol] 27 U/L Normal 16-63 [facility] Comment on above: Performed By: #### T ROPHS, GFR, CBC, ADIFF, MDW, CMP, MG, ANEU, LIP #### [address] [address] AST [Catalytic activity/Vol] 20 U/L Normal 10-40 [facility] Comment on above: Performed By: #### T KE, GFR, CBC, ADIFF, MDW, CMP, MG, ANEU, LIP #### [address] [address] Bili Total 0.8 mg/dL Normal 0.2-1.0 [facility] Comment on above: Result Comment: Use of this assay is not recommended for patients undergoing treatment with eltrombopag due to the potential for falsely elevated results. Performed By: #### T LULAHS, GFR, CBC, ADIFF, MDW, CMP, MG, ANEU, LIP #### [address] [address] BUN/Creatinine Ratio 11 ratio Normal 7-27 [facility] Comment on above: Performed By: #### T KE, GFR, CBC, ADIFF, MDW, CMP, MG, ANEU, LIP #### [address] [address] Calcium [Mass/Vol] 8.9 mg/dL Normal 8.4-10.2 [facility] Comment on above: Performed By: #### T KE, GFR, CBC, ADIFF, MDW, CMP, MG, ANEU, LIP #### [address] [address] Chloride [Moles/Vol] 103 mmol/L Normal 98-107 [facility] Comment on above: Performed By: #### T KE, GFR, CBC, ADIFF, MDW, CMP, MG, ANEU, LIP #### [address] [address] CO2 [Moles/Vol] 29 mmol/L Normal 22-29 [facility] Comment on above: Performed By: #### T KE, GFR, CBC, ADIFF, MDW, CMP, MG, ANEU, LIP #### [address] [address] Creatinine [Mass/Vol] 1.03 mg/dL Normal 0.67-1.17 [facility] Comment on above: Performed By: #### T KE, GFR, CBC, ADIFF, MDW, CMP, MG, ANEU, LIP #### [place] [id number] Electrolyte Balance 6.0 mEq/L Normal 4.0-15.0 [facility] Comment on above: Performed By: #### T KE, GFR, CBC, ADIFF, MDW, CMP, MG, ANEU, LIP #### [address] [address] Globulin 2.9 G/dL Normal 2.7-4.4 [facility] Comment on above: Performed By: #### T KE, GFR, CBC, ADIFF, MDW, CMP, MG, ANEU, LIP #### [address] [address] Glucose [Mass/Vol] 112 mg/dL High 70-105 [facility] Comment on above: Performed By: #### T KE, GFR, CBC, ADIFF, MDW, CMP, MG, ANEU, LIP #### [address] [address] Potassium [Moles/Vol] 4.0 mmol/L Normal 3.5-5.1 [facility] Comment on above: Performed By: #### T LULAHS, GFR, CBC, ADIFF, MDW, CMP, MG, ANEU, LIP #### [place] [address] [place], [place] [address] Sodium [Moles/Vol] 138 mmol/L Normal 136-145 [facility] Comment on above: Performed By: #### T ROPHS, GFR, CBC, ADIFF, MDW, CMP, MG, ANEU, LIP #### [place] [address] [place], [place] [address] Total Protein 6.8 G/dL Normal 6.4-8.2 [facility] Comment on above: Performed By: #### T ROPHS, GFR, CBC, ADIFF, MDW, CMP, MG, ANEU, LIP #### [place] [address] [place], [place] [address] Urea nitrogen [Mass/Vol] 11 mg/dL Normal 7-18 [facility] Comment on above: Performed By: #### T ROPHS, GFR, CBC, ADIFF, MDW, CMP, MG, ANEU, LIP #### [address] [address] [address] ABD/PELVIS W/ IV CONTRAST ONLYon 07-29-2025 CT ABD/PELVIS W/ IV CONTRAST ONLY ORIGINAL EXAMINATION: CT OF THE ABDOMEN AND PELVIS WITH CONTRAST 07/29/2025 5:35 pm TECHNIQUE: CT of the abdomen and pelvis was performed with the administration of intravenous contrast. Multiplanar reformatted images are provided for review. Automated exposure control, iterative reconstruction, and/or weight based adjustment of the mA/kV was utilized to reduce the radiation dose to as low as reasonably achievable. COMPARISON: CT abdomen-pelvis 07/28/2025 HISTORY: ORDERING SYSTEM PROVIDED HISTORY: Reason for Exam: mid abdomen pain x2 days, N+V Abdominal pain, acute, nonlocalized FINDINGS: Lower Chest: Visualized lower thorax demonstrates no consolidation or pleural effusion. There is mild bibasilar atelectasis. Organs: The liver demonstrates no biliary duct dilatation or gross mass. There is diffuse hepatic periportal edema. The gallbladder demonstrates no calcified gallstones or gross wall thickening. The pancreas demonstrates no evidence of mass, ductal dilatation, or inflammatory process. Spleen is normal in size. Adrenal glands are normal in size. The kidneys enhance symmetrically without evidence of hydronephrosis. Ureters are normal in caliber bilaterally. GI/Bowel: There is mild wall thickening of the gastric antrum again noted. Small bowel and colon are normal in caliber. Appendix is normal in caliber without gross wall thickening or inflammatory change. Pelvis: Urinary bladder is within normal limits. No acute abnormality of the prostate. Seminal vesicles are grossly normal in morphology. Peritoneum/Retroperiton eum: Aorta is normal in caliber without acute abnormality. Bones/Soft Tissues: Osseous structures are intact. IMPRESSION: 1. Mild wall thickening of the gastric antrum again noted. This may reflect gastritis. 2. Diffuse hepatic periportal edema. This is nonspecific and can be seen in the setting of acute hepatitis, passive hepatic congestion, or other etiologies. Interpreted by: Maurilio Casillas Preliminary Report By: Maurilio Casillas Electronically signed By Maurilio Casillas Dictated Date: 07/29/2025 6:09:07 PM Prelim Date: 07/29/2025 6:29:22 PM Sign Date: 07/29/2025 6:29:22 PM Ordering Provider: PATRICIA PHILIPPE Normal [facility] CT ABD/PELVIS W/ IV CONTRAST ONLY ORIGINAL EXAMINATION: CT OF THE ABDOMEN AND PELVIS WITH KPRHUPTZ62/1/2025 11:48 pm TECHNIQUE: CT of the abdomen and pelvis was performed with the administration of intravenous contrast. Multiplanar reformatted images are provided for review. Automated exposure control, iterative reconstruction, and/or weight based adjustment of the mA/kV was utilized to reduce the radiation dose to as low as reasonably achievable. COMPARISON: None HISTORY: ORDERING SYSTEM PROVIDED HISTORY: Reason for Exam: Abdominal pain, acute, nonlocalized FINDINGS: Bones: No acute bony abnormality. Lower Thorax: Bilateral dependent atelectasis. There is no visible pleural or pericardial effusion. The heart is normal in size. Solid Organs: The liver, spleen, pancreas, gallbladder, and adrenal glands are unremarkable. Collecting System: The kidneys enhance symmetrically. No urolithiasis or hydronephrosis. Pelvis: The bladder is unremarkable. Pelvic phleboliths. The prostate demonstrates no acute abnormalities.. GI Tract: Mild prominence of the gastric wall without surrounding inflammatory changes. The small bowel demonstrates no acute abnormalities. The colon is unremarkable. The appendix is normal. Vasculature: The aorta is normal in caliber. Lymph Nodes, Mesentery, and Peritoneum: No lymphadenopathy is identified. No free intraperitoneal fluid or gas is identified. Superficial Soft Tissues: Unremarkable. IMPRESSION: Mild prominence of the gastric wall without surrounding inflammatory changes, nonspecific, however is favored to be related to under distension versus gastritis/peptic ulcer disease. Otherwise, no acute abnormality in the abdomen or pelvis. I have personally reviewed the images of this examination and agree with the resident's findings and interpretation. Interpreted by: Analia Jefferson MD Preliminary Report By: Wendi pSarks Electronically signed By Analia Jefferson MD Dictated Date: 07/29/2025 12:21:21 AM Prelim Date: 07/29/2025 12:28:58 AM Sign Date: 07/29/2025 12:45:37 AM Ordering Provider: ERROL MENJIVAR RP Normal [facility] LABORATORYOrdered By: SYSTEM SYSTEM on 07-29-2025 Albumin BCP dye [Mass/Vol] 3.9 G/dL Normal 3.5 - 5.0 G/dL AO ADM SS Albumin/Globulin [Mass ratio] 1.3 {ratio} Normal 1.1 - 2.5 ratio AO ADM SS ALP [Catalytic activity/Vol] 60 U/L Normal 40 - 135 U/L AO ADM SS ALT With P-5'-P [Catalytic activity/Vol] 27 U/L Normal 16 - 63 U/L AO ADM SS AST With P-5'-P [Catalytic activity/Vol] 20 U/L Normal 10 - 40 U/L AO ADM SS Basophils (Bld) [#/Vol] 0.0 103/mcL Normal 0.0 - 0.3 10^3/mcL AO Workflow SS Basophils/100 WBC (Bld) 0.5 % Normal 0.0 - 2.5 % AO Workflow SS Bilirubin [Mass/Vol] 0.8 mg/dL Normal 0.2 - 1 .0 mg/dL AO ADM SS Comment on above: Interpretive Data: U se of this assay is not recommended for patients undergoing treatment with eltrombopag due to the potential for falsely elevated results. Calcium [Mass/Vol] 8.9 mg/dL Normal 8.4 - 10. 2 mg/dL AO ADM SS Chloride [Moles/Vol] 103 mmol/L Normal 98 - 10 7 mmol/L AO ADM SS CO2 [Moles/Vol] 29 mmol/L Normal 22 - 29 mmol/L AO ADM SS Creatinine [Mass/Vol] 1.03 mg/dL Normal 0.67 - 1.17 mg/dL AO ADM SS Electrolyte Balance 6.0 mEq/L Normal 4.0 - 15 .0 mEq/L AO ADM SS Eosinophil, Absolute 0.2 103/mcL Normal 0.0 - 0 .7 10^3/mcL AO Workflow SS Eosinophils/100 WBC (Bld) 2.2 % Normal 0.0 - 6.0 % AO Workflow SS Erythrocyte distribution width (RBC) [Ratio] 13.4 % Normal 11.5 - 15.5 % AO Workflow SS Globulin 2.9 G/dL Normal 2.7 - 4.4 G/dL AO ADM SS GLOMERULAR FILTRATION RATE/1.73 SQ M.PREDICTED:ARVRAT:PT :SER/PLAS/BLD:QN:CREA TININE-BASED FORMULA (CKD-EPI 2020) 98 ml/min/1.73sqm Invalid Interpretation Code AO Chemistry S Comment on above: Interpretive Data: Stages of Chronic Kidney Disease (CKD) Stage Description eGFR(ml/min/1.73 sq.m.) CKD 1 Normal kidney function or >=90 normal kindney function with possible kidney damage (ex. Proteinuria) CKD 2 Kidney damage with mild loss 60-89 of kidney function CKD 3a Mild to moderate loss of kidney 45-59 function CKD 3b Moderate to severe loss of 30-44 of kindey function CKD 4 Severe loss of kidney function 15-29 CKD 5 Kidney failure <15 Note: (go live 2024) the eGFR calculation was updated to the 2020 CKD-EPI creatinine equation without a race factor to calculate the eGFR results. Glucose [Mass/Vol] 112 mg/dL High 70 - 105 mg/dL AO ADM SS Hematocrit (Bld) [Volume fraction] 40.9 % Normal 40.0 - 52.0 % AO Workflow SS Hemoglobin (Bld) [Mass/Vol] 14.1 G/dL Normal 13.0 - 17.5 G/dL AO Workflow SS Lipase [Catalytic activity/Vol] 24 U/L Normal 16 - 77 U/L AO ADM SS Lymphocytes (Bld) [#/Vol] 1.7 103/mcL Normal 0.9 - 4.3 10^3/mcL AO Workflow SS Lymphocytes/100 WBC (Bld) 21.5 % Normal 20.0 - 40.0 % AO Workflow SS Magnesium [Mass/Vol] 1.9 mg/dL Normal 1.8 - 2 .4 mg/dL AO ADM SS MCH (RBC) [Entitic mass] 31.0 pg Normal 27.0 - 33.0 pg AO Workflow SS MCHC 34.5 G/dL Normal 32.0 - 36.0 G/dL AO Workflow SS MCV (RBC) [Entitic vol] 89.7 fL Normal 81.0 - 100.0 fL AO Workflow SS Monocyte distribution width Auto (Bld) [Entitic vol] 19.08 1 Normal 0.00 - 20.00 AO Workflow SS Comment on above: Result Comment: For ED adult patients suspected of sepsis, MDW<=20.0 does not rule out sepsis or risk of sepsis Monocytes (Bld) [#/Vol] 0.8 103/mcL Normal 0.1 - 1.4 10^3/mcL AO Workflow SS Monocytes/100 WBC (Bld) 10.2 % Normal 2.0 - 13.0 % AO Workflow SS Neutrophils (Bld) [#/Vol] 5.2 103/mcL Normal 2.3 - 8.1 10^3/mcL AO Workflow SS Neutrophils/100 WBC (Bld) 65.6 % Normal 50.0 - 75.0 % AO Workflow SS Platelet mean volume (Bld) [Entitic vol] 6.7 fL Normal 6.4 - 10.5 fL AO Workflow SS Platelets (Bld) [#/Vol] 187 103/mcL Normal 150 - 450 10^3/mcL AO Workflow SS Potassium [Moles/Vol] 4.0 mmol/L Normal 3.5 - 5.1 mmol/L AO ADM SS Protein [Mass/Vol] 6.8 G/dL Normal 6.4 - 8.2 G/dL AO ADM SS RBC (Bld) [#/Vol] 4.56 106/mcL Normal 4.50 - 6.0 0 10^6/mcL AO Workflow SS Sodium [Moles/Vol] 138 mmol/L Normal 136 - 145 mmol/L AO ADM SS Troponin I.cardiac DL <= 0.01 ng/mL [Mass/Vol] 6 ng/L Normal 0 - 76 ng/L AO ADM SS Comment on above: Interpretive Data: H igh Sensitive Troponin I Reference Ranges: Female: 0-51 ng/L Male: 0-76 ng/L Testing performed on [employer] using a homogeneous sandwich chemiluminescent immunoassay based on [employer] technology. Urea nitrogen [Mass/Vol] 11 mg/dL Normal 7 - 18 mg/dL AO ADM SS Urea nitrogen/Creatinine [Mass ratio] 11 ratio Normal 7 - 27 ratio AO ADM SS WBC (Bld) [#/Vol] 7.9 103/mcL Normal 4.5 - 10.8 10^3/mcL AO Workflow SS LIPon 07-29-2025 Lipase Level 24 U/L Normal 16-77 [facility] Comment on above: Performed By: #### T KE, GFR, CBC, ADIFF, MDW, CMP, MG, ANEU, LIP #### [address] [address] MGon 07-29-2025 Magnesium [Mass/Vol] 1.9 mg/dL Normal 1.8-2.4 [facility] Comment on above: Performed By: #### T KE, GFR, CBC, ADIFF, MDW, CMP, MG, ANEU, LIP #### [address] [address] TROPHSon 07-29-2025 High Sensitivity Troponin I 6 ng/L Normal 0-76 [facility] Comment on above: Result Comment: High Sensitive Troponin I Reference Ranges: Female: 0-51 ng/L Male: 0-76 ng/L Testing performed on [employer] using a homogeneous sandwich chemiluminescent immunoassay based on [employer] technology. Performed By: #### T KE, GFR, CBC, ADIFF, MDW, CMP, MG, ANEU, LIP #### [address] [address] XR CHEST 1 VIEWon 07-29-2025 XR CHEST 1 VIEW ORIGINAL EXAMINATION: ONE XRAY VIEW OF THE CHEST 07/29/2025 5:35 pm COMPARISON: None. HISTORY: ORDERING SYSTEM PROVIDED HISTORY: Reason for Exam: chest pain FINDINGS: There is no infiltrate, consolidation, or effusion. Cardiomediastinal silhouette is normal in size. There is no pulmonary vascular congestion. There is no pneumothorax. Osseous structures are grossly within normal limits. IMPRESSION: 1. There is no infiltrate, consolidation, or effusion. Interpreted by: Maurilio Casillas Preliminary Report By: Maurilio Casillas Electronically signed By Maurilio Casillas Dictated Date: 07/29/2025 6:05:45 PM Prelim Date: 07/29/2025 6:08:51 PM Sign Date: 07/29/2025 6:08:51 PM Ordering Provider: PATRICIA PHILIPPE Normal [facility] .Auto Diffon 07-28-2025 Basophil, Absolute 0.1 10 3/mcL Normal 0.0-0.3 [facility] Comment on above: Performed By: #### T ROPHS, GFR, CBC, ADIFF, MDW, CMP, MG, ANEU, LIP #### [address] [address] Basophils/100 WBC (Bld) 0.8 % Normal 0.0-2.5 [facility] Comment on above: Performed By: #### T ROPHS, GFR, CBC, ADIFF, MDW, CMP, MG, ANEU, LIP #### [address] [address] Eosinophil, Absolute 0.1 10 3/mcL Normal 0.0-0.7 [facility] Comment on above: Performed By: #### T ROPHS, GFR, CBC, ADIFF, MDW, CMP, MG, ANEU, LIP #### [address] [address] Eosinophils/100 WBC (Bld) 1.5 % Normal 0.0-6.0 [facility] Comment on above: Performed By: #### T ROPHS, GFR, CBC, ADIFF, MDW, CMP, MG, ANEU, LIP #### [address] [address] Lymphocyte, Absolute 1.9 10 3/mcL Normal 0.9-4.3 [facility] Comment on above: Performed By: #### T ROPHS, GFR, CBC, ADIFF, MDW, CMP, MG, ANEU, LIP #### [address] [address] Lymphocytes/100 WBC (Bld) 21.2 % Normal 20.0-40.0 [facility] Comment on above: Performed By: #### T KE, GFR, CBC, ADIFF, MDW, CMP, MG, ANEU, LIP #### [address] [address] Monocyte, Absolute 0.8 10 3/mcL Normal 0.1-1.4 [facility] Comment on above: Performed By: #### T KE, GFR, CBC, ADIFF, MDW, CMP, MG, ANEU, LIP #### [address] [address] Monocytes/100 WBC (Bld) 9.1 % Normal 2.0-13.0 [facility] Comment on above: Performed By: #### T KE, GFR, CBC, ADIFF, MDW, CMP, MG, ANEU, LIP #### [address] [address] Neutrophils/100 WBC (Bld) 67.4 % Normal 50.0-75.0 [facility] Comment on above: Performed By: #### T KE, GFR, CBC, ADIFF, MDW, CMP, MG, ANEU, LIP #### [address] [address] .GFRon 07-28-2025 Estimated Glomerular Filtration Rate 108 ml/min/1.73sqm Normal [facility] Comment on above: Result Comment: Stages of Chronic Kidney Disease (CKD) Stage Description eGFR(ml/min/1.73 sq.m.) CKD 1 Normal kidney function or >=90 normal kindney function with possible kidney damage (ex. Proteinuria) CKD 2 Kidney damage with mild loss 60-89 of kidney function CKD 3a Mild to moderate loss of kidney 45-59 function CKD 3b Moderate to severe loss of 30-44 of kindey function CKD 4 Severe loss of kidney function 15-29 CKD 5 Kidney failure <15 Note: (go live 2024) the eGFR calculation was updated to the 2020 CKD-EPI creatinine equation without a race factor to calculate the eGFR results. Performed By: #### T ROPHS, GFR, CBC, ADIFF, MDW, CMP, MG, ANEU, LIP #### [address] [address] .MDWon 07-28-2025 Monocyte Distribution Width 17.66 Normal 0.00-20.00 [facility] Comment on above: Result Comment: For ED adult patients suspected of sepsis, MDW<=20.0 does not rule out sepsis or risk of sepsis Performed By: #### T ROPHS, GFR, CBC, ADIFF, MDW, CMP, MG, ANEU, LIP #### [address] [address] .NEUABSon 07-28-2025 Neutrophil, Absolute 5.9 10 3/mcL Normal 2.3-8.1 [facility] Comment on above: Performed By: #### T ROPHS, GFR, CBC, ADIFF, MDW, CMP, MG, ANEU, LIP #### [place] [address] CBCon 07-28-2025 Erythrocyte distribution width (RBC) [Ratio] 13.3 % Normal 11.5-15.5 [facility] Comment on above: Performed By: #### C MP, GFR, ADIFF, CBC, ANEU, LIP, MDW #### [place] [address] Hematocrit (Bld) [Volume fraction] 43.7 % Normal 40.0-52.0 [facility] Comment on above: Performed By: #### C MP, GFR, ADIFF, CBC, ANEU, LIP, MDW #### [address] [address] Hgb 15.1 G/dL Normal 13.0-17.5 [facility] Comment on above: Performed By: #### C MP, GFR, ADIFF, CBC, ANEU, LIP, MDW #### [place] [address] MCH (RBC) [Entitic mass] 30.7 pg Normal 27.0-33.0 [facility] Comment on above: Performed By: #### C MP, GFR, ADIFF, CBC, ANEU, LIP, MDW #### [address] [address] MCHC 34.5 G/dL Normal 32.0-36.0 [facility] Comment on above: Performed By: #### C MP, GFR, ADIFF, CBC, ANEU, LIP, MDW #### [address] [address] MCV (RBC) [Entitic vol] 89.0 fL Normal 81.0-100.0 [facility] Comment on above: Performed By: #### C MP, GFR, ADIFF, CBC, ANEU, LIP, MDW #### [address] [address] Platelet 192 10 3/mcL Normal 150-450 [facility] Comment on above: Performed By: #### C MP, GFR, ADIFF, CBC, ANEU, LIP, MDW #### [address] [address] Platelet mean volume (Bld) [Entitic vol] 6.6 fL Normal 6.4-10.5 [facility] Comment on above: Performed By: #### C MP, GFR, ADIFF, CBC, ANEU, LIP, W #### [address] [address] RBC 4.91 10 6/mcL Normal 4.50-6.00 [facility] Comment on above: Performed By: #### C MP, GFR, ADIFF, CBC, ANEU, LIP, MDW #### [address] [address] WBC 8.8 10 3/mcL Normal 4.5-10.8 [facility] Comment on above: Performed By: #### C MP, GFR, ADIFF, CBC, ANEU, LIP, MDW #### [place] [address] CMPon 07-28-2025 Albumin Level 4.1 G/dL Normal 3.5-5.0 [facility] Comment on above: Performed By: #### T ROPHS, GFR, CBC, ADIFF, MDW, CMP, MG, ANEU, LIP #### [address] [address] Albumin/Globulin [Mass ratio] 1.4 {ratio} Normal 1.1-2.5 [facility] Comment on above: Performed By: #### T ROPHS, GFR, CBC, ADIFF, MDW, CMP, MG, ANEU, LIP #### [address] [address] ALP [Catalytic activity/Vol] 61 U/L Normal 40-135 [facility] Comment on above: Performed By: #### T ROPHS, GFR, CBC, ADIFF, MDW, CMP, MG, ANEU, LIP #### [address] [address] ALT [Catalytic activity/Vol] 27 U/L Normal 16-63 [facility] Comment on above: Performed By: #### T ROPHS, GFR, CBC, ADIFF, MDW, CMP, MG, ANEU, LIP #### [address] [address] AST [Catalytic activity/Vol] 22 U/L Normal 10-40 [facility] Comment on above: Performed By: #### T ROPHS, GFR, CBC, ADIFF, MDW, CMP, MG, ANEU, LIP #### [address] [address] Bili Total 0.8 mg/dL Normal 0.2-1.0 [facility] Comment on above: Result Comment: Use of this assay is not recommended for patients undergoing treatment with eltrombopag due to the potential for falsely elevated results. Performed By: #### T ROPHS, GFR, CBC, ADIFF, MDW, CMP, MG, ANEU, LIP #### [place] [id number] BUN/Creatinine Ratio 13 ratio Normal 7-27 [facility] Comment on above: Performed By: #### T ROPHS, GFR, CBC, ADIFF, MDW, CMP, MG, ANEU, LIP #### [address] [address] Calcium [Mass/Vol] 9.4 mg/dL Normal 8.4-10.2 [facility] Comment on above: Performed By: #### T KE, GFR, CBC, ADIFF, MDW, CMP, MG, ANEU, LIP #### [place] [address] Chloride [Moles/Vol] 105 mmol/L Normal 98-107 [facility] Comment on above: Performed By: #### T KE, GFR, CBC, ADIFF, MDW, CMP, MG, ANEU, LIP #### [place] [address] CO2 [Moles/Vol] 28 mmol/L Normal 22-29 [facility] Comment on above: Performed By: #### T KE, GFR, CBC, ADIFF, MDW, CMP, MG, ANEU, LIP #### [place] [address] Creatinine [Mass/Vol] 0.95 mg/dL Normal 0.67-1.17 [facility] Comment on above: Performed By: #### T KE, GFR, CBC, ADIFF, MDW, CMP, MG, ANEU, LIP #### [place] [address] Electrolyte Balance 8.0 mEq/L Normal 4.0-15.0 [facility] Comment on above: Performed By: #### T KE, GFR, CBC, ADIFF, MDW, CMP, MG, ANEU, LIP #### [place] [address] Globulin 3.0 G/dL Normal 2.7-4.4 [facility] Comment on above: Performed By: #### T KE, GFR, CBC, ADIFF, MDW, CMP, MG, ANEU, LIP #### [place] [address] Glucose [Mass/Vol] 117 mg/dL High 70-105 [facility] Comment on above: Performed By: #### T KE, GFR, CBC, ADIFF, MDW, CMP, MG, ANEU, LIP #### [address] [address] Potassium [Moles/Vol] 3.7 mmol/L Normal 3.5-5.1 [facility] Comment on above: Performed By: #### T KE, GFR, CBC, ADIFF, MDW, CMP, MG, ANEU, LIP #### [address] [address] Sodium [Moles/Vol] 141 mmol/L Normal 136-145 [facility] Comment on above: Performed By: #### T KE, GFR, CBC, ADIFF, MDW, CMP, MG, ANEU, LIP #### [address] [address] Total Protein 7.1 G/dL Normal 6.4-8.2 [facility] Comment on above: Performed By: #### T KE, GFR, CBC, ADIFF, MDW, CMP, MG, ANEU, LIP #### [address] [address] Urea nitrogen [Mass/Vol] 12 mg/dL Normal 7-18 [facility] Comment on above: Performed By: #### T KE, GFR, CBC, ADIFF, MDW, CMP, MG, ANEU, LIP #### [address] [address] LABORATORYOrdered By: SYSTEM SYSTEM on 07-28-2025 Albumin BCP dye [Mass/Vol] 4.1 G/dL Normal 3.5 - 5.0 G/dL AO ADM SS Albumin/Globulin [Mass ratio] 1.4 {ratio} Normal 1.1 - 2.5 ratio AO ADM SS ALP [Catalytic activity/Vol] 61 U/L Normal 40 - 135 U/L AO ADM SS ALT With P-5'-P [Catalytic activity/Vol] 27 U/L Normal 16 - 63 U/L AO ADM SS AST With P-5'-P [Catalytic activity/Vol] 22 U/L Normal 10 - 40 U/L AO ADM SS Basophils (Bld) [#/Vol] 0.1 103/mcL Normal 0.0 - 0.3 10^3/mcL AO Workflow SS Basophils/100 WBC (Bld) 0.8 % Normal 0.0 - 2.5 % AO Workflow SS Bilirubin [Mass/Vol] 0.8 mg/dL Normal 0.2 - 1 .0 mg/dL AO ADM SS Comment on above: Interpretive Data: U se of this assay is not recommended for patients undergoing treatment with eltrombopag due to the potential for falsely elevated results. Calcium [Mass/Vol] 9.4 mg/dL Normal 8.4 - 10. 2 mg/dL AO ADM SS Chloride [Moles/Vol] 105 mmol/L Normal 98 - 10 7 mmol/L AO ADM SS CO2 [Moles/Vol] 28 mmol/L Normal 22 - 29 mmol/L AO ADM SS Creatinine [Mass/Vol] 0.95 mg/dL Normal 0.67 - 1.17 mg/dL AO ADM SS Electrolyte Balance 8.0 mEq/L Normal 4.0 - 15 .0 mEq/L AO ADM SS Eosinophil, Absolute 0.1 103/mcL Normal 0.0 - 0 .7 10^3/mcL AO Workflow SS Eosinophils/100 WBC (Bld) 1.5 % Normal 0.0 - 6.0 % AO Workflow SS Erythrocyte distribution width (RBC) [Ratio] 13.3 % Normal 11.5 - 15.5 % AO Workflow SS Globulin 3.0 G/dL Normal 2.7 - 4.4 G/dL AO ADM SS GLOMERULAR FILTRATION RATE/1.73 SQ M.PREDICTED:ARVRAT:PT :SER/PLAS/BLD:QN:CREA TININE-BASED FORMULA (CKD-EPI 2020) 108 ml/min/1.73sqm Invalid Interpretation Code AO Chemistry S Comment on above: Interpretive Data: Stages of Chronic Kidney Disease (CKD) Stage Description eGFR(ml/min/1.73 sq.m.) CKD 1 Normal kidney function or >=90 normal kindney function with possible kidney damage (ex. Proteinuria) CKD 2 Kidney damage with mild loss 60-89 of kidney function CKD 3a Mild to moderate loss of kidney 45-59 function CKD 3b Moderate to severe loss of 30-44 of kindey function CKD 4 Severe loss of kidney function 15-29 CKD 5 Kidney failure <15 Note: (go live 2024) the eGFR calculation was updated to the 2020 CKD-EPI creatinine equation without a race factor to calculate the eGFR results. Glucose [Mass/Vol] 117 mg/dL High 70 - 105 mg/dL AO ADM SS Hematocrit (Bld) [Volume fraction] 43.7 % Normal 40.0 - 52.0 % AO Workflow SS Hemoglobin (Bld) [Mass/Vol] 15.1 G/dL Normal 13.0 - 17.5 G/dL AO Workflow SS Lipase [Catalytic activity/Vol] 20 U/L Normal 16 - 77 U/L AO ADM SS Lymphocytes (Bld) [#/Vol] 1.9 103/mcL Normal 0.9 - 4.3 10^3/mcL AO Workflow SS Lymphocytes/100 WBC (Bld) 21.2 % Normal 20.0 - 40.0 % AO Workflow SS MCH (RBC) [Entitic mass] 30.7 pg Normal 27.0 - 33.0 pg AO Workflow SS MCHC 34.5 G/dL Normal 32.0 - 36.0 G/dL AO Workflow SS MCV (RBC) [Entitic vol] 89.0 fL Normal 81.0 - 100.0 fL AO Workflow SS Monocyte distribution width Auto (Bld) [Entitic vol] 17.66 1 Normal 0.00 - 20.00 AO Workflow SS Comment on above: Result Comment: For ED adult patients suspected of sepsis, MDW<=20.0 does not rule out sepsis or risk of sepsis Monocytes (Bld) [#/Vol] 0.8 103/mcL Normal 0.1 - 1.4 10^3/mcL AO Workflow SS Monocytes/100 WBC (Bld) 9.1 % Normal 2.0 - 13.0 % AO Workflow SS Neutrophils (Bld) [#/Vol] 5.9 103/mcL Normal 2.3 - 8.1 10^3/mcL AO Workflow SS Neutrophils/100 WBC (Bld) 67.4 % Normal 50.0 - 75.0 % AO Workflow SS Platelet mean volume (Bld) [Entitic vol] 6.6 fL Normal 6.4 - 10.5 fL AO Workflow SS Platelets (Bld) [#/Vol] 192 103/mcL Normal 150 - 450 10^3/mcL AO Workflow SS Potassium [Moles/Vol] 3.7 mmol/L Normal 3.5 - 5.1 mmol/L AO ADM SS Protein [Mass/Vol] 7.1 G/dL Normal 6.4 - 8.2 G/dL AO ADM SS RBC (Bld) [#/Vol] 4.91 106/mcL Normal 4.50 - 6.0 0 10^6/mcL AO Workflow SS Sodium [Moles/Vol] 141 mmol/L Normal 136 - 145 mmol/L AO ADM SS Urea nitrogen [Mass/Vol] 12 mg/dL Normal 7 - 18 mg/dL AO ADM SS Urea nitrogen/Creatinine [Mass ratio] 13 ratio Normal 7 - 27 ratio AO ADM SS WBC (Bld) [#/Vol] 8.8 103/mcL Normal 4.5 - 10.8 10^3/mcL AO Workflow SS LABORATORYOrdered By: Moriah Phillip on 07-28-2025 Color (U) Yellow (07/28/25 10:21 PM) Normal Yellow AO Auto Urine SS Glucose (U) [Mass/Vol] Negative Normal Negative AO Auto Urine SS Ketones Ql (U) Negative Normal Negative AO Auto Urine SS UA Appear Clear (07/28/25 10:21 PM) Normal Clear AO Auto Urine SS UA Bili Negative (07/28/25 10:21 PM) Normal Negative AO Auto Urine SS UA Blood Negative (07/28/25 10:21 PM) Normal Negative AO Auto Urine SS UA Leuk Est Negative (07/28/25 10:21 PM) Normal Negative AO Auto Urine SS UA Nitrite Negative (07/28/25 10:21 PM) Normal Negative AO Auto Urine SS UA pH 6.0 (07/28/25 10:21 PM) Normal 5.0 - 8.0 AO Auto Urine SS UA Protein Negative Normal Negative AO Auto Urine SS UA Spec Grav >=1.030 *ABN* (07/28/25 10:21 PM) Invalid Interpretation Code 1.015-1.025 AO Auto Urine SS UA Specimen Type Clean Catch (07/28/25 10:21 PM) Normal AO Auto Urine SS UA Urobilinogen 0.2 E.U./dL Normal 0.2-1.0 AO Auto Urine SS LIPon 07-28-2025 Lipase Level 20 U/L Normal 16-77 [facility] Comment on above: Performed By: #### T ROPHS, GFR, CBC, ADIFF, MDW, CMP, MG, ANEU, LIP #### [address] [address] UAon 07-28-2025 Color (U) Yellow Normal Yellow [facility] Comment on above: Performed By: #### T ROPHS, GFR, CBC, ADIFF, MDW, CMP, MG, ANEU, LIP #### [place] [address] Glucose (U) [Mass/Vol] Negative Normal Negative [facility] Comment on above: Performed By: #### T ROPHS, GFR, CBC, ADIFF, MDW, CMP, MG, ANEU, LIP #### [place] [address] Ketones Ql (U) Negative Normal Negative [facility] Comment on above: Performed By: #### T ROPHS, GFR, CBC, ADIFF, MDW, CMP, MG, ANEU, LIP #### [place] [address] UA Appear Clear Normal Clear [facility] Comment on above: Performed By: #### T KE, GFR, CBC, ADIFF, MDW, CMP, MG, ANEU, LIP #### [place] [address] UA Blood Negative Normal Negative [facility] Comment on above: Performed By: #### T ROPHS, GFR, CBC, ADIFF, MDW, CMP, MG, ANEU, LIP #### [place] [address] UA Leuk Est Negative Normal Negative [facility] Comment on above: Performed By: #### T ROPHS, GFR, CBC, ADIFF, MDW, CMP, MG, ANEU, LIP #### [place] [address] UA Nitrite Negative Normal Negative [facility] Comment on above: Performed By: #### T ROPHS, GFR, CBC, ADIFF, MDW, CMP, MG, ANEU, LIP #### [place] [address] UA pH 6.0 Normal 5.0 - 8.0 [facility] Comment on above: Performed By: #### T KE, GFR, CBC, ADIFF, MDW, CMP, MG, ANEU, LIP #### [address] [address] UA Protein Negative Normal Negative [facility] Comment on above: Performed By: #### T KE, GFR, CBC, ADIFF, MDW, CMP, MG, ANEU, LIP #### [place] [address] UA Spec Grav >=1.030 Abnormal 1.015-1.025 [facility] Comment on above: Performed By: #### T KE, GFR, CBC, ADIFF, MDW, CMP, MG, ANEU, LIP #### [place] [address] UA Specimen Type Clean Catch Normal [facility] Comment on above: Performed By: #### T KE, GFR, CBC, ADIFF, MDW, CMP, MG, ANEU, LIP #### [place] [address] UA Urobilinogen 0.2 E.U./dL Normal 0.2-1.0 [facility] Comment on above: Performed By: #### T KE, GFR, CBC, ADIFF, MDW, CMP, MG, ANEU, LIP #### [place] [address] Urobilinogen (U) [Mass/Vol] Negative Normal Negative [facility] Comment on above: Performed By: #### T KE, GFR, CBC, ADIFF, MDW, CMP, MG, ANEU, LIP #### [place] [address] CT SPINE CERVICAL W/O CONTRA STon 06-13-2025 CT SPINE CERVICAL W/O CONTRAST ORIGINAL HISTORY: Neck pain; no other history available. COMPARISON: No TECHNIQUE: Cervical spine CT with sagittal and coronal reconstructions. This exam was performed according to our departmental dose optimization program, and includes the following measures where applicable: automated exposure control, adjustment of the mAs and/or kVp according to patient size and/or exam, and an iterative reconstruction algorithm. FINDINGS: There are no acute fractures or dislocations. There is mild reversal of the normal cervical lordosis. The individual vertebral bodies are intact. Prevertebral soft tissues are unremarkable in appearance. IMPRESSION: No acute fracture. Neck pain Interpreted by: Kenan Leung MD Preliminary Report By: Kenan Leung MD Electronically signed By Kenan Leung MD Dictated Date: 06/13/2025 12:10:09 PM Prelim Date: 06/13/2025 12:12:15 PM Sign Date: 06/13/2025 1:56:11 PM Ordering Provider: BRYANT Chandra [facility] MRI SPINE LUMBAR W/O CONTRAS Ton 03-17-2025 MRI SPINE LUMBAR W/O CONTRAST ORIGINAL EXAMINATION: MRI OF THE LUMBAR SPINE WITHOUT CONTRAST, 03/17/2025 7:31 am TECHNIQUE: Multiplanar multisequence MRI of the lumbar spine was performed without the administration of intravenous contrast. COMPARISON: None. HISTORY: ORDERING SYSTEM PROVIDED HISTORY: Reason for Exam: LUMBAR RADICULOPATHY FINDINGS: BONES/ALIGNMENT: There is normal alignment of the spine. The vertebral body heights are maintained. The bone marrow signal appears unremarkable. SPINAL CORD: The conus terminates normally. SOFT TISSUES: No paraspinal mass identified. L1-L2: There is no significant disc herniation, spinal canal stenosis or neural foraminal narrowing. L2-L3: There is no significant disc herniation, spinal canal stenosis or neural foraminal narrowing. L3-L4: There is no significant disc herniation, spinal canal stenosis or neural foraminal narrowing. L4-L5: There is no significant disc herniation, spinal canal stenosis or neural foraminal narrowing. L5-S1: There is disc desiccation with small broad-based herniation of disc material eccentric to the right the GB maximum AP extent of 6 mm and extruded superiorly with respect to the disc level. No foraminal extension. IMPRESSION: Right-sided herniated disc L5-S1. Interpreted by: Juan Alberto Bettencourt Preliminary Report By: Juan Alberto Bettencourt Electronically signed By Juan Alberto Bettencourt Dictated Date: 03/17/2025 7:34:08 AM Prelim Date: 03/17/2025 7:36:02 AM Sign Date: 03/17/2025 7:36:02 AM Ordering Provider: MARIA FERNANDA Chandra [facility] Encounters Encounter Date Encounter Type Care Provider Facility Start: 07-31-2025 End: 08-02-2025 Evaluation and management of inpatient DR KELLEY YU MD [facility] Start: 07-30-2025 End: 07-31-2025 Emergency department patient visit DR DELLA VELASQUEZ DO [facility] Start: 07-29-2025 End: 07-29-2025 Emergency department patient visit PATRICIA PHILIPPE DO [facility] Start: 07-28-2025 End: 07-29-2025 Emergency department patient visit ERROL MENJIVAR MD [facility] Start: 07-08-2025 End: 07-08-2025 Emergency department patient visit ERROL MENJIVAR MD [facility] Start: 06-13-2025 End: 06-13-2025 Emergency department patient visit BRYANT GRAJEDA MD [facility] Start: 05-09-2025 End: 05-09-2025 ambulatory [employer] Facility:A Start: 03-17-2025 End: 03-17-2025 ambulatory MARIA FERNANDA JONES MD Facility:[facility] Start: 03-17-2025 End: 03-17-2025 Patient encounter procedure MARIA FERNANDA JONES MD [facility] Procedures Date Procedure Procedure Detail Performing Clinician Start: 10-28-2011 Rupture of anterior cruciate ligament (disorder) DR KELLEY YU MD Start: 01-01-2011 Rupture of anterior cruciate ligament (disorder) DR KELLEY YU MD Payers Date Payer Category Payer Private Health Insurance [id number] 2025 Unknown [id number] 1992 Unknown [id number] 2.16. [id number] 1992 Unknown [id number] 2.16. [id number] 1992 Unknown [id number] 2.16. [id number] 1992 Unknown [id number] 2.16. [id number] 1992 Unknown [id number] 2.16. [id number] 1992 Unknown [id number] 2.16.8 [id number] 1992 Unknown [id number] 2.16. [id number] 1992 Unknown [id number] 2.16. [id number] Social History Date Type Detail Facility Tobacco smoking status [facility] Sex Assigned At Male [facility] Start: 03-09-2025 Sex Male (finding) [facility] Start: 05-09-2025 End: 08-01-2025 Tobacco smoking status Never smoked tobacco (finding) [facility] Clinical Notes 03-17-2025 to 08-02-2025 Note Date & Type Note Facility 08-02-2025 Hospital Discharg e instructions Patient Education 08/02/2025 12:43:51 Gastritis, Adult Gastritis, Adult Gastritis is inflammation of the stomach. There are two kinds of gastritis: Acute gastritis. This kind develops suddenly. Chronic gastritis. This kind is much more common and lasts for a long time. Gastritis happens when the lining of the stomach becomes weak or gets damaged. Without treatment, gastritis can lead to stomach bleeding and ulcers. What are the causes? This condition may be caused by: An infection. Drinking too much alcohol. Certain medicines. These include steroids, antibiotics, and some wwzx-rnu-ffnises medicines, such as aspirin or ibuprofen. Having too much acid in the stomach. A disease of the intestines or stomach. Stress. An allergic reaction. Crohn's disease. Some cancer treatments (radiation). Sometimes the cause of this condition is not known. What are the signs or symptoms? Symptoms of this condition include: Pain or a burning sensation in the upper abdomen. Nausea. Vomiting. An uncomfortable feeling of fullness after eating. Weight loss. Bad breath. Blood in your vomit or stools. In some cases, there are no symptoms. How is this diagnosed? This condition may be diagnosed with: Your medical history and a description of your symptoms. A physical exam. Tests. These can include: ?Blood tests. ?Stool tests. ?A test in which a thin, flexible instrument with a light and a camera is passed down the esophagus and into the stomach (upper endoscopy). ?A test in which a sample of tissue is taken for testing (biopsy). How is this treated? This condition may be treated with medicines. The medicines that are used vary depending on the cause of the gastritis: If the condition is caused by a bacterial infection, you may be given antibiotic medicines. If the condition is caused by too much acid in the stomach, you may be given medicines called H2 blockers, proton pump inhibitors, or antacids. Treatment may also involve stopping the use of certain medicines, such as aspirin, ibuprofen, or other NSAIDs. Follow these instructions at home: Medicines Take zpnr-ace-gljdoxw and prescription medicines only as told by your health care provider. If you were prescribed an antibiotic medicine, take it as told by your health care provider. Do not stop taking the antibiotic even if you start to feel better. Eating and drinking Eat small, frequent meals instead of large meals. Avoid foods and drinks that make your symptoms worse. Drink enough fluid to keep your urine pale yellow. Alcohol use Do not drink alcohol if: ?Your health care provider tells you not to drink. ?You are , may be , or are planning to become . If you drink alcohol: ?Limit your use to: ?0 1 drink a day for women. ?0 2 drinks a day for men. ?Be aware of how much alcohol is in your drink. In the [place] one drink equals one 12 oz bottle of beer (355 mL), one 5 oz glass of wine (148 mL), or one 1 oz glass of hard liquor (44 mL). General instructions Talk with your health care provider about ways to manage stress, such as getting regular exercise or practicing deep breathing, meditation, or yoga. Do not use any products that contain nicotine or tobacco, such as cigarettes and e-cigarettes. If you need help quitting, ask your health care provider. Keep all follow-up visits as told by your health care provider. This is important. Contact a health care provider if: Your symptoms get worse. Your symptoms return after treatment. Get help right away if: You vomit blood or material that looks like coffee grounds. You have black or dark red stools. You are unable to keep fluids down. Your abdominal pain gets worse. You have a fever. You do not feel better after one week. Summary Gastritis is inflammation of the lining of the stomach that can occur suddenly (acute) or develop slowly over time (chronic). This condition is diagnosed with a medical history, a physical exam, or tests. This condition may be treated with medicines to treat infection or medicines to reduce the amount of acid in your stomach. Follow your health care provider's instructions about taking medicines, making changes to your diet, and knowing when to call for help. This information is not intended to replace advice given to you by your health care provider. Make sure you discuss any questions you have with your health care provider. Document Released: 10/08/2002 Document Revised: 03/03/2019 Document Reviewed: 03/03/2019 [employer] Patient Education 2020 [employer] Follow Up Care 07/31/2025 18:15:47 With:[facility] Address: [address] [place] [address] [place] [address]- When:1-2 days Comments:Please call the office to schedule your hospital follow up appointment . [facility] 08-02-2025 Note Discharge Instructions Thank you for allowing [facility] to assist you with your healthcare needs. The following is important discharge information regarding your hospital visit. Your Care Team [facility] What to do next Follow Up Appointments Follow Up with [facility] When:Within 1-2 days Where:[address] [place] [address] [place] [address]- Additional Information: Please call the office to schedule your hospital follow up appointment . The Following Activity and Diet Have Been Ordered for You Discharge Activity - Ordered -- Resume your pre-hospitalization activity, 08/02/25 13:57:00 EDT Discharge Diet - Ordered -- Type of Diet: Regular, 08/02/25 13:57:00 EDT The Following Equipment Has Been Ordered for You No qualifying data available. The Following Treatments Have Been Ordered for You Discharge Labs No qualifying data available. Discharge Radiology No qualifying data available. Other Therapies No qualifying data available. Post Acute Orders No qualifying data available. Someone Will Contact You Regarding These Home Health Referrals No home referrals have been ordered for you. No one will call you. Allergies NKA Medications Please ask your primary doctor or pharmacist before taking any other medication not listed, including over the counter drugs, herbal medications, vitamins and or supplements as they may interact with your home medications. What How Much When Instructions Last Dose New pantoprazole (pantoprazole 40 mg oral enteric coated tablet) 1 tab(s) by mouth Once a day before a meal Printed Prescription What How Much When Comments Stop Taking dicyclomine (Bentyl use dicyclomine ) 20 Milligram by mouth Four (4) times a day Stop Taking famotidine (Pepcid 20 mg oral tablet) 1 tab(s) by mouth Two (2) times a day Stop Taking lansoprazole (Prevacid 15 mg oral delayed release capsule) 1 cap by mouth Once a day Stop Taking ondansetron (ondansetron 4 mg oral tablet, disintegrating) 1 tab(s) by mouth Every 6 hours as needed for Nausea/Vomiting Duration: 4 Days Stop Taking sucralfate (sucralfate 1 g oral tablet) 1 tab(s) by mouth Four (4) times a day Duration: 7 Days take on an empty stomach 1hr before or 2hr after meals at minumum Please take this list to your next doctor s visit. Bring all medications you take, including over the counter medications, herbals and other supplements with you to your doctor s visit. Patients and families are reminded to discard old lists and to update any records with all medication providers or retail pharmacies. Education Materials Gastritis, Adult Gastritis is inflammation of the stomach. There are two kinds of gastritis: Acute gastritis. This kind develops suddenly. Chronic gastritis. This kind is much more common and lasts for a long time. Gastritis happens when the lining of the stomach becomes weak or gets damaged. Without treatment, gastritis can lead to stomach bleeding and ulcers. What are the causes? This condition may be caused by: An infection. Drinking too much alcohol. Certain medicines. These include steroids, antibiotics, and some shht-avc-cifmehi medicines, such as aspirin or ibuprofen. Having too much acid in the stomach. A disease of the intestines or stomach. Stress. An allergic reaction. Crohn's disease. Some cancer treatments (radiation). Sometimes the cause of this condition is not known. What are the signs or symptoms? Symptoms of this condition include: Pain or a burning sensation in the upper abdomen. Nausea. Vomiting. An uncomfortable feeling of fullness after eating. Weight loss. Bad breath. Blood in your vomit or stools. In some cases, there are no symptoms. How is this diagnosed? This condition may be diagnosed with: Your medical history and a description of your symptoms. A physical exam. Tests. These can include: ? Blood tests. ? Stool tests. ? A test in which a thin, flexible instrument with a light and a camera is passed down the esophagus and into the stomach (upper endoscopy). ? A test in which a sample of tissue is taken for testing (biopsy). How is this treated? This condition may be treated with medicines. The medicines that are used vary depending on the cause of the gastritis: If the condition is caused by a bacterial infection, you may be given antibiotic medicines. If the condition is caused by too much acid in the stomach, you may be given medicines called H2 blockers, proton pump inhibitors, or antacids. Treatment may also involve stopping the use of certain medicines, such as aspirin, ibuprofen, or other NSAIDs. Follow these instructions at home: Medicines Take puhd-inl-eflfjlm and prescription medicines only as told by your health care provider. If you were prescribed an antibiotic medicine, take it as told by your health care provider. Do not stop taking the antibiotic even if you start to feel better. Eating and drinking Eat small, frequent meals instead of large meals. Avoid foods and drinks that make your symptoms worse. Drink enough fluid to keep your urine pale yellow. Alcohol use Do not drink alcohol if: ? Your health care provider tells you not to drink. ? You are , may be , or are planning to become . If you drink alcohol: ? Limit your use to: ? 0 1 drink a day for women. ? 0 2 drinks a day for men. ? Be aware of how much alcohol is in your drink. In the [place] one drink equals one 12 oz bottle of beer (355 mL), one 5 oz glass of wine (148 mL), or one 1 oz glass of hard liquor (44 mL). General instructions Talk with your health care provider about ways to manage stress, such as getting regular exercise or practicing deep breathing, meditation, or yoga. Do not use any products that contain nicotine or tobacco, such as cigarettes and e-cigarettes. If you need help quitting, ask your health care provider. Keep all follow-up visits as told by your health care provider. This is important. Contact a health care provider if: Your symptoms get worse. Your symptoms return after treatment. Get help right away if: You vomit blood or material that looks like coffee grounds. You have black or dark red stools. You are unable to keep fluids down. Your abdominal pain gets worse. You have a fever. You do not feel better after one week. Summary Gastritis is inflammation of the lining of the stomach that can occur suddenly (acute) or develop slowly over time (chronic). This condition is diagnosed with a medical history, a physical exam, or tests. This condition may be treated with medicines to treat infection or medicines to reduce the amount of acid in your stomach. Follow your health care provider's instructions about taking medicines, making changes to your diet, and knowing when to call for help. This information is not intended to replace advice given to you by your health care provider. Make sure you discuss any questions you have with your health care provider. Document Released: 10/08/2002 Document Revised: 03/03/2019 Document Reviewed: 03/03/2019 [employer] Patient Education 2020 [employer] Additional Information VACCINATE! IT SAVES LIVES! Members of the community who have not yet received the COVID-19 vaccine and would like to receive it can visit one of [facility] vaccine clinics. There are many vaccine clinic locations within the State. For locations and available times, please visit [email or web address].[place] .gov/. It is important to note that some COVID mobile vaccine clinics are held outdoors and may be canceled in rainy or stormy conditions. To learn more about pediatric vaccinations (ages 5-11), we invite you to visit the [facility] webpage. https://www.[employer].org/page s/7849-Nflgz-Yezzqajmvzv-Frequently -Asked-Questions.html To learn more about the COVID-19 vaccine, we invite you to visit the CDC website for a list of frequently asked questions.https://www.cdc.gov/coron avirus/2019-ncov/vaccines/faq.html [facility] Patient Portal Access Instructions: Stay connected with your healthcare team and access your personal medical information anytime with the [facility] Patient Portal. Please follow the directions below to create your [facility] account: 1.Access the email account you provided upon registration to the hospital/physician office.2.Look for an invitation email from [facility].3.Open the email and access the invitation link: Accept Invitation to [facility].4.Fill in the required argueta to create your account. To access your account, visit [email or web address] or scan the [employer] code above. Click the blue button labeled "Access Patient Portal" and then log in with the username and password that you created in the steps above. You will be able to view your test results, lab results, a summary of your visits, upcoming appointments and more. There is also a convenient messaging option where you can send secure messages to your provider. In addition, you will have the ability to download any documents or summaries to your computer and/or send the information securely to a physician. Remember that your healthcare information is confidential, so carefully consider who you will allow to register on the [facility] Patient Portal for access to your information. You can also access the [facility] Patient Portal on the [facility] donovan. Simply click on "Patient Portal" and then log into your account. If you would like to receive a full copy of your medical records, please contact the [facility] Medical Records Department by calling [phone], Saturday through Saturday between 8 a.m. and 4:30 p.m. HOW TO SAFELY DISPOSE OF PRESCRIPTION MEDICATIONS Please use one of the following methods to safely dispose of your unused medications. 1.Use a drug disposal kit: the drug disposal pouch allows you to safely discard your old and unused drugs. Ask your nurse to give you one when you are discharged.2.Visit a local take-back location: Many local pharmacies and police departments have programs that collect old and unwanted prescription drugs. Call your local pharmacy or go to [email or web address].Streyner/[email or web address] to find one close to you.3.Make use of household items: Use cat litter or old coffee grounds to dispose medications if other options are not available. Mix your drugs with these household products, seal them in an airtight container and throw it into the garbage. Call [facility]: [phone] to be sure your drugs can be disposed of in this way. Some medicines may require a different approach.4.Never flush your medications down the toilet. IF YOU HAVE BEEN PRESCRIBED AN OPIOID FOR PAIN If you have been prescribed an opioid (such as hydrocodone, oxycodone or morphine), it is critical to understand the possible side effects and risks of opioid pain medications. Even when taken as directed, opioids can have several side effects including: Tolerance, meaning you might need to take more of a medication for the same pain relief. Nausea, vomiting and/or constipation. Sleepiness, dizziness, dry mouth, confusion, depression or itching. Physical dependence, meaning you have withdrawal symptoms when a medication is stopped, can develop within a few days. KNOW YOUR RESPONSIBILITIES It is important to know exactly how much and how often to take the opioid pain medications you are prescribed. Never take opioids in higher amounts or more often than prescribed. Do not combine opioids with alcohol or other drugs that cause drowsiness, such as benzodiazepines, also known as benzos, including diazepam and alprazolam, muscle relaxants or sleep aids. Never sell or share prescription opioids. This is illegal. Store opioids in a secure place and out of reach of others (including children, family, friends and visitors). The last page of this document has been signed and retained as a CHART COPY. Signatures Patient Education Materials Gastritis, Adult Medication Leaflets My discharge plan and instructions have been reviewed and explained to me and I,GEORGINA WEATHERS understand my current condition and have read and understand these discharge instructions. I have received a written copy of the plan/instructions. If I have questions, I am aware that I should contact my doctor. 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 Moderate acute diffuse gastritis 2. Hypertension. 3. Marijuana use. 4. Chronic back pain. Hospital Course 35-year-old male with multiple medical problems listed above presented to the hospital with abdominal pain, nausea and vomiting, clinical suspicion was for gastritis, patient was started on IV Protonix, IV fluid, kept n.p.o., gastroenterology team was consulted. Gastroenterology team evaluated the patient's, ultrasound Doppler of the abdomen, CT angio of abdomen and pelvis, was consulted done, no acute findings, gastroenterology team evaluated the patient, and he went for EGD on 08/02/2025, which showed moderate diffuse gastritis, biopsies were obtained, no ulcers noted regions. Gastroenterology team recommended 40 mg of Protonix daily, follow-up as an outpatient for biopsy results. Patient was examined and evaluated by me today, he was awake, alert, and oriented, denying any chest pain or abdominal pain, was at the bedside, patient tolerated diet, patient will be discharged home today. All his questions were answered, his concerns were addressed Allergies NKA Procedures EGD 08/02/2025 Consults Consult to Physician - Ordered -- 08/01/25 4:26:00 EDT, KENDELL ARRIETA MD, Routine, Acute recurrent severe abdominal pain and nausea and vomiting. Evaluate for EGD Imaging Results and Diagnostics Please see [facility] Objective Vitals and Measurements T: 36.8 C (Temporal Artery) HR: 64 (Monitored) RR: 16 BP: 130/88 SpO2: 98% Weight Dosing Weight: 91.9 kg (08/01/25) Dosing Weight: 91.9 kg (07/31/25) Head: atraumatic normocephalic Neck: supple no JVD Lungs: clear to auscultation bilaterally, no wheezes no accessory muscle use. Heart: S1-S2 regular rate and rhythm, no murmurs Abdomen: soft nontender nondistended, bowel sounds are present all 4 quadrants Lower extremities: no cyanosis, no chronic skin changes, pulse palpable +1 bilaterally, no edema Skin: showed no rash Neurological: patient is awake alert and oriented 3, no focal deficit. Pending Labs and Studies Biopsies for H. pylori Code Status Code Status - Ordered -- 08/01/25 0:40:00 EDT, Full Code, Constant Order Admission Date 07/31/2025 Discharge Date 08/02/2025 Medications New Prescription pantoprazole (pantoprazole 40 mg oral enteric coated tablet)1 tab(s) by mouth once a day before a meal. Refills: 0. Discontinued dicyclomine (Bentyl use dicyclomine )20 Milligram by mouth four (4) times a day. Refills: 0. famotidine (Pepcid 20 mg oral tablet)1 tab(s) by mouth two (2) times a day. Refills: 0. lansoprazole (Prevacid 15 mg oral delayed release capsule)1 cap by mouth once a day. Refills: 0. ondansetron (ondansetron 4 mg oral tablet, disintegrating)1 tab(s) by mouth every 6 hours as needed Nausea/Vomiting for 4 Days. Refills: 0. sucralfate (sucralfate 1 g oral tablet)1 tab(s) by mouth four (4) times a day for 7 Days. take on an empty stomach 1hr before or 2hr after meals at minumum. Refills: 0. Follow Up Follow Up with [place], CLINIC When:Within 1-2 days Where:[address] [place] [address]. [place] [address]- Additional Information: Please call the office to schedule your hospital follow up appointment . Follow Up Appointments No qualifying data available. Follow Up Labs/Studies Discharge Labs No Follow-up Labs Discharge Studies No Follow-up Studies Discharge Diet No qualifying data available. Discharge Activity No qualifying data available. Condition on Discharge Stable Readmission Risk/Palliative Score No qualifying data available. Discharge Disposition Home Time Spent 33-minute Digitally Signed by ELAINE ZARCO MD on 08/02/2025 12:59 PM [facility] 08-02-2025 Anesthesiology Consult note Patient: GEORGINA WEATHERS Age: 35 years Sex: Male : 1990 Associated Diagnoses: None Author: SHERI FIGUEROA DO Postoperative Information Post Operative Info: Post op day: Post Anesthesia Care Unit. Patient location: PACU. Assessment Postanesthesia assessment Vitals: Vital signs from flowsheet : Vital Signs 08/02/2025 12:25 EDT Heart Rate Monitored 64 bpm Respiratory Rate 16 br/min Systolic Blood Pressure Non-Invasive 130 mmHg Diastolic Blood Pressure Non-Invasive 88 mmHg 08/02/2025 12:12 EDT Heart Rate Monitored 64 bpm Respiratory Rate 16 br/min Systolic Blood Pressure Non-Invasive 130 mmHg Diastolic Blood Pressure Non-Invasive 80 mmHg Mean Arterial Pressure (NBP) 96 mmHg 08/02/2025 11:56 EDT Temperature Temporal Artery 36.8 DegC Heart Rate Monitored 88 bpm Respiratory Rate 16 br/min Systolic Blood Pressure Non-Invasive 128 mmHg Diastolic Blood Pressure Non-Invasive 81 mmHg Mean Arterial Pressure (NBP) 93 mmHg 08/02/2025 11:53 EDT Systolic Blood Pressure Non-Invasive 126 mmHg mmHg Diastolic Blood Pressure Non-Invasive 70 mmHg mmHg 08/02/2025 11:50 EDT Heart Rate Monitored 97 bpm bpm Respiratory Rate - Anes 25 br/min br/min 08/02/2025 11:49 EDT Systolic Blood Pressure Non-Invasive 135 mmHg mmHg Diastolic Blood Pressure Non-Invasive 88 mmHg mmHg 08/02/2025 11:46 EDT Systolic Blood Pressure Non-Invasive 138 mmHg mmHg Diastolic Blood Pressure Non-Invasive 63 mmHg mmHg 08/02/2025 11:45 EDT Heart Rate Monitored 74 bpm bpm Respiratory Rate - Anes 18 br/min br/min 08/02/2025 11:43 EDT Systolic Blood Pressure Non-Invasive 148 mmHg mmHg Diastolic Blood Pressure Non-Invasive 107 mmHg mmHg 08/02/2025 7:47 EDT Temperature Oral 36.8 DegC Peripheral Pulse Rate 86 bpm Respiratory Rate 20 br/min Systolic Blood Pressure Non-Invasive 142 mmHg HI Diastolic Blood Pressure Non-Invasive 81 mmHg Reason For Taking VItal Signs Routine 08/01/2025 22:41 EDT Temperature Oral 36.8 DegC Heart Rate Monitored 68 bpm Respiratory Rate 16 br/min Systolic Blood Pressure Non-Invasive 150 mmHg HI Diastolic Blood Pressure Non-Invasive 66 mmHg Reason For Taking VItal Signs Routine 08/01/2025 16:32 EDT Temperature Oral 36.8 DegC Peripheral Pulse Rate 72 bpm Respiratory Rate 16 br/min Systolic Blood Pressure Non-Invasive 142 mmHg HI Diastolic Blood Pressure Non-Invasive 88 mmHg Blood Pressure Method Automatic Blood Pressure Location Left arm Blood Pressure Cuff Size Medium Reason For Taking VItal Signs Routine 08/01/2025 8:09 EDT Temperature Oral 36.7 DegC Peripheral Pulse Rate 74 bpm Respiratory Rate 17 br/min Systolic Blood Pressure Non-Invasive 143 mmHg HI Diastolic Blood Pressure Non-Invasive 94 mmHg HI Blood Pressure Method Automatic Blood Pressure Location Left arm Blood Pressure Cuff Size Medium Reason For Taking VItal Signs Routine 08/01/2025 3:08 EDT Temperature Oral 37.0 DegC Peripheral Pulse Rate 62 bpm Respiratory Rate 16 br/min Systolic Blood Pressure Non-Invasive 134 mmHg Diastolic Blood Pressure Non-Invasive 87 mmHg Blood Pressure Method Automatic Blood Pressure Location Left arm Blood Pressure Cuff Size Medium Reason For Taking VItal Signs Admission 08/01/2025 2:47 EDT Peripheral Pulse Rate 54 bpm LOW Respiratory Rate 16 br/min Systolic Blood Pressure Non-Invasive 146 mmHg HI Diastolic Blood Pressure Non-Invasive 89 mmHg , Oxygen Therapy : Oxygen Therapy & Oxygenation Information 08/02/2025 12:25 EDT Oxygen Saturation 98 % 08/02/2025 12:12 EDT Oxygen Saturation 97 % 08/02/2025 11:56 EDT Oxygen Therapy Room air Oxygen Saturation 99 % 08/02/2025 11:50 EDT Oxygen Saturation 98 % % 08/02/2025 11:45 EDT Oxygen Saturation 100 % % 08/02/2025 7:47 EDT Oxygen Therapy Room air Oxygen Saturation 98 % 08/02/2025 7:24 EDT Oxygen Therapy Room air Oxygen Activity on stand-by Oxygen Flow Rate 0 L/min 08/01/2025 22:41 EDT Oxygen Therapy Room air Oxygen Saturation 99 % 08/01/2025 16:32 EDT Oxygen Therapy Room air Oxygen Saturation 98 % 08/01/2025 8:09 EDT Oxygen Therapy Room air Oxygen Saturation 96 % Oxygen Flow Rate 0 L/min 08/01/2025 8:03 EDT Oxygen Therapy Room air Oxygen Activity Room air Oxygen Flow Rate 0 L/min 08/01/2025 5:10 EDT Oxygen Therapy Room air Oxygen Activity Room air Oxygen Flow Rate 0 L/min 08/01/2025 4:29 EDT Oxygen Therapy Room air 08/01/2025 3:08 EDT Oxygen Therapy Room air Oxygen Saturation 97 % 08/01/2025 2:47 EDT Oxygen Therapy Room air Oxygen Saturation 94 % . Mental status: at preoperative baseline. Respiratory function: respirations are non-labored, Stable. Respiratory support: none. CV function: Stable. Cardiovascular support: none. Pain: Satisfactory. Nausea status: Satisfactory. Postoperative hydration status: within normal limits. Notes: Patient is sufficiently recovered from anesthesia to participate in the evaluation. No follow-up care needed. No complications post-anesthesia.. Digitally Signed by SHERI FIGUEROA DO on 08/02/2025 12:42 PM [facility] 08-02-2025 Note Date of Service 08/02/25 Procedure(s): EGD with biopsies Anesthesia: MAC Brief History: 35-year-old male with complaints of intermittent postprandial abdominal pain as well as nausea and vomiting. The benefits, alternatives, and risks of the procedure(s) including (but not exclusive to ) bleeding, perforation, allergic reaction(s) due to sedatives, need for hospitalization, need for transfusions, need for surgery, and likelihood of missing a polyp or neoplastic lesion, were explained to the patient/guardian/responsible accompanying adult who is agreeable. Procedure Details: The patient was placed in the left lateral decubitus position. A bite block was placed and medications administered as above. The Olympus gastroscope was used to intubate the oropharynx and esophagus with ease. We proceeded down to the second part of the duodenum. The duodenal mucosa and bulb appeared normal. We then withdrew into the stomach and visualized the antrum and body. There was diffuse moderate gastritis seen throughout the gastric antrum into the distal body. No ulcers or erosions were seen. Biopsies were taken to rule out H. Pylori. Retroflexion was performed and this showed a normal fundus and cardia. The squamocolumnar junction, GE junction and esophagus appeared normal. The scope was then withdrawn and the patient tolerated the procedure well. Pre-Op/Pre-Procedure Diagnosis: Abdominal pain Nausea and vomiting Post-Op/Post-Procedure Diagnosis: Diffuse moderate gastritis as described above, biopsies obtained Specimens: See above EBL: None Complications: None Recommendations: Follow-up on pathology results Pantoprazole 40 mg p.o. every morning Diet as tolerated Okay to discharge patient from GI standpoint if patient tolerates diet GI will sign off, please call if further questions Kendell Arrieta MD Digitally Signed by KENDELL ARRIETA MD on 08/02/2025 11:56 AM [facility] 08-02-2025 Anesthesiology Consult note Patient: GEORGINA WEATHERS Age: 35 years Sex: Male : 1990 Associated Diagnoses: None Author: JAKE WORLEY MD Preoperative Information NPO > 8 hrs Anesthesia history Patient's history: negative. Family's history: negative. History of Present Illness 35yo male with PMH of GERD presenting for an EGD. Patient denies recent CP, SOB, NV, GERD symptoms. Review of Systems Ear/Nose/Mouth/Throat: Negative except as documented in history of present illness. Respiratory: Negative except as documented in history of present illness. Cardiovascular: Negative except as documented in history of present illness. Gastrointestinal: Negative except as documented in history of present illness. Genitourinary: Negative except as documented in history of present illness. Endocrine: Negative except as documented in history of present illness. Musculoskeletal: Negative except as documented in history of present illness. Integumentary: Negative except as documented in history of present illness. Neurologic: Negative except as documented in history of present illness. Health Status Allergies: Allergic Reactions (Selected) NKA, Allergies (1) ActiveSeverityReaction NKANone Documented Current medications: (Selected) Inpatient Medications Ordered Bentyl: 20 mg, 2 cap(s), Oral, achs Dextrose 50% IV Push: 25 gram(s), 50 mL, IV Push, AsDirected, PRN: Low blood sugar DuoNeb: 3 mL, Inhalation, q4hRT, PRN: Shortness of breath or wheezing Miralax Powder Packet: 17 gram(s), 15 mL, Oral, qDay, PRN: Constipation Normal Saline 1,000 mL: 125 mL/hr, Intravenous Percocet 325/5: 1 tab(s), Oral, q4h, PRN: Pain, scale 4-6 Protonix IV Push: 40 mg, IV Push, q12h Tylenol: 650 mg, 2 tab(s), Oral, q4h, PRN: Pain, scale 1-3 Tylenol: 650 mg, 2 tab(s), Oral, q4h, PRN: TEMP greater than 38.6 degrees Celsius guaiFENesin: 200 mg, 10 mL, Oral, q4h, PRN: Cough melatonin: 3 mg, 1 tab(s), Oral, qHS, PRN: Sleep morphine: 1 mg, 0.5 mL, IV Push, q4h, PRN: Pain, scale 7-10 prochlorperazine: 5 mg, 1 mL, IV Push, q6h, PRN: Nausea/Vomiting Prescriptions Prescribed Bentyl use dicyclomine : 20 mg, Oral, QID, 20 cap(s), 0 Refill(s) Pepcid 20 mg oral tablet: 20 mg, 1 tab(s), Oral, BID, 30 tab(s), 0 Refill(s) Prevacid 15 mg oral delayed release capsule: 15 mg, 1 cap(s), Oral, qDay, 30 cap(s), 0 Refill(s) ondansetron 4 mg oral tablet, disintegratin mg, 1 tab(s), Oral, q6h, for 4 day(s), PRN: Nausea/Vomiting, 12 tab(s), 0 Refill(s) sucralfate 1 g oral tablet: 1 gram(s), 1 tab(s), Oral, QID, for 7 day(s), take on an empty stomach 1hr before or 2hr after meals at minumum, 28 tab(s), 0 Refill(s), Medications (13) Active Scheduled: (2) dicyclomine 10 mg capsule 20 mg 2 cap(s), Oral, achs pantoprazole 40 mg VIAL 40 mg, IV Push, q12h Continuous: (1) NS (0.9% nacl) 1,000 mL 1,000 mL, Intravenous, 125 mL/hr PRN: (10) acetaminophen 325 mg Tablet 650 mg 2 tab(s), Oral, q4h acetaminophen 325 mg Tablet 650 mg 2 tab(s), Oral, q4h acetaminophen-OXYcodone 325 mg-5 mg Tablet 1 tab(s), Oral, q4h albuterol - ipratropium 2.5 mg-0.5 mg/3 mL Inhal Nereida UD 3 mL, Inhalation, q4hRT dextrose 50% Solution Disp syringe 50 mL 25 gram(s) 50 mL, IV Push, AsDirected guaifenesin 100 mg/5 mL Liquid 120 mL 200 mg 10 mL, Oral, q4h melatonin 3 mg tablet 3 mg 1 tab(s), Oral, qHS morphine 2 mg/mL 1 mL syringe 1 mg 0.5 mL, IV Push, q4h polyethylene glycol 3350 - UD packet 17 gram(s) 15 mL, Oral, qDay prochlorperazine 10 mg/2 mL vial 5 mg 1 mL, IV Push, q6h Problem list: No problem items selected or recorded., Active Problems (1) No Chronic Problems Histories Past Medical History: No active or resolved past medical history items have been selected or recorded. Procedure history: Anterior cruciate ligament rupture ([id number]) in 2012 at 22 Years. Anterior cruciate ligament rupture ([id number]) in 2011 at 21 Years. Social History: Social & Psychosocial Habits Alcohol 08/01/2025 Type: denies Substance Abuse 08/01/2025 Use: Current Type: Marijuana Tobacco 08/01/2025 Tobacco Use: Never (less than 100 in l Home/Environment 08/01/2025 Living situation: Home/Independent Safe place to go: Yes Domestic Concerns None Nutrition/Health 08/01/2025 Type of diet: Regular Appetite Good Physical Examination Vital Signs (last 24 hrs) Last Charted Temp Oral36.8 DegC (AUG 02 07:47) Heart Rate [id number] bpm (AUG 01 22:41) SBPH 142 mmHg (AUG 02 07:47) DBP81 mmHg (AUG 02 07:47) Measurements from flowsheet : Measurements 08/01/2025 4:05 EDT Height 188 cm Height in inches 74 inch(es) Admission Weight 91.9 kg Weight Lbs 202.2 lb Manning Body Weight 82.24 kg Type of Scale Used Floor scale BSA Admission 2.19 Body Mass Index 26 kg/m2 General: Alert and oriented, No acute distress. Airway: Normal temporomandibular joint mobility, Normal mouth, Normal neck range of motion. Mallampati classification: II (soft palate, fauces, uvula visible). Dentition Evaluation: Intact, Own teeth. Respiratory: Lungs are clear to auscultation. Cardiovascular: Normal rate, Regular rhythm. Heart Sounds: Normal. Neurologic: Alert, Oriented. Review / Management Results review: Labs (Last four charted values) WBC 8.0(AUG 02)7.3(AUG 01)7.4(JUL 31) Hgb 15.3(AUG 02)15.1(AUG 01)15.6(JUL 31) Hct 43.8(AUG 02)43.6(AUG 01)43.9(JUL 31) Plt 211(AUG 02)194(AUG 01)210(JUL 31) Na 141(AUG 02)142(AUG 01)140(JUL 31) K 4.4(AUG 02)3.8(AUG 01)3.8(JUL 31) CO2 26(AUG 02)27(AUG 01)26(JUL 31) Cl 109(AUG 02)108(AUG 01)107(JUL 31) Cr 0.94(AUG 02)0.97(AUG 01)0.97(JUL 31) BUN L 6.0(AUG 02)12.0(AUG 01)12.0(JUL 31) Glucose 95(AUG 02)98(AUG 01)110(JUL 31) Mg 2.2(AUG 01) Ca 10.2(AUG 02)9.8(AUG 01)10.2(JUL 31) PT 11.7(AUG 01) INR 1.0(AUG 01) . Documentation reviewed: Current records. Assessment and Plan [place] [employer]hesi[employer] (ASA) physical status classification: Class I. Anesthetic Preoperative Plan Premedication: intravenous. Anesthetic technique: MAC (GA as backup). Induction: intravenously. Maintenance airway: Mask. Postoperative pain management: Per surgeon. Risks discussed: nausea, vomiting, sore throat, dental injury, hypotension, allergic reaction, serious complications. Informed consent: signed by patient. Digitally Signed by JAKE WORLEY MD on 08/02/2025 11:34 AM [facility] 08-02-2025 Gastroenterology Progress note Date of Service 08/02/2025 Subjective Patient is seen and examined sitting up comfortably in bed states throughout this admission, his abdominal pain has continued to improve. Still with And some discomfort in the right lower quadrant he is attributing to some constipation. States he has not had a bowel movement since Saturday. He tolerated some clear liquids yesterday. He has had no recurrent nausea or vomiting for the last few days. Objective Vitals and Measurements T: 36.8 C (Oral) HR: 86 RR: 20 BP: 142/81 SpO2: 98% Intake and Output Last 24 hours Intake Administration Information 2000.00 Oral Intake 600.00 Output Stool Count 0.00 Urine Count 4.00 Total Summary Total Intake 2600.00 Total Output 0.00 Fluid Balance 2600.00 Physical Exam General: Awake and alert and in no apparent distress. Able to answer questions and speak in full sentences. HEENT: Mucous membranes moist and pink. Sclerae anicteric. PERRLA. Neuro: Alert and oriented x3. Speech is clear and regular. Heart: Regular rate and rhythm. S1-S2 are present. Lungs: Chest rise symmetrical. Respirations unlabored. Clear to auscultation bilaterally. Abdomen: Soft, nontender slight discomfort with palpation in the epigastrium. No guarding or rigidity. Bowel sounds 4 quadrants. No palpated splenomegaly or hepatomegaly. Skin: Warm and dry. No pallor or diaphoresis. No jaundice. Weight Dosing Weight: 91.9 kg (08/01/25) Dosing Weight: 91.9 kg (07/31/25) Medications Medications (13) Active Scheduled: (2) dicyclomine 10 mg capsule 20 mg 2 cap(s), Oral, achs pantoprazole 40 mg VIAL 40 mg, IV Push, q12h Continuous: (1) NS (0.9% nacl) 1,000 mL 1,000 mL, Intravenous, 125 mL/hr PRN: (10) acetaminophen 325 mg Tablet 650 mg 2 tab(s), Oral, q4h acetaminophen 325 mg Tablet 650 mg 2 tab(s), Oral, q4h acetaminophen-OXYcodone 325 mg-5 mg Tablet 1 tab(s), Oral, q4h albuterol - ipratropium 2.5 mg-0.5 mg/3 mL Inhal Nereida UD 3 mL, Inhalation, q4hRT dextrose 50% Solution Disp syringe 50 mL 25 gram(s) 50 mL, IV Push, AsDirected guaifenesin 100 mg/5 mL Liquid 120 mL 200 mg 10 mL, Oral, q4h melatonin 3 mg tablet 3 mg 1 tab(s), Oral, qHS morphine 2 mg/mL 1 mL syringe 1 mg 0.5 mL, IV Push, q4h polyethylene glycol 3350 - UD packet 17 gram(s) 15 mL, Oral, qDay prochlorperazine 10 mg/2 mL vial 5 mg 1 mL, IV Push, q6h Lab Results 08/02 06:43 WBC: 8.0 Hgb: 15.3 Hct: 43.8 Platelet: 211 Neutrophil %: 72.6 Glucose Level: 95 Sodium Level: 141 Potassium Level: 4.4 BUN: 6.0 L Creatinine Lvl (s): 0.94 08/01 05:01 WBC: 7.3 Hgb: 15.1 Hct: 43.6 Platelet: 194 Neutrophil %: 66.6 Protime: 11.7 PT International Ratio: 1.0 Glucose Level: 98 Sodium Level: 142 Potassium Level: 3.8 BUN: 12.0 Creatinine Lvl (s): 0.97 07/31 22:54 WBC: 7.4 Hgb: 15.6 Hct: 43.9 Platelet: 210 Neutrophil %: 70.3 Glucose Level: 110 Sodium Level: 140 Potassium Level: 3.8 BUN: 12.0 Creatinine Lvl (s): 0.97 Imaging Results and Diagnostics US Doppler Abdomen Result Date: August 01, 2025 Verified By: NBA MOSES DO CLINICAL STATEMENT: IMPRESSION: No evidence of portal venous thrombosis. Normal portal venous directionalflow. CT Angiography Abd Aorta + Iliofemoral Result Date: August 01, 2025 Verified By: NBA MOSES DO CLINICAL STATEMENT: IMPRESSION: Lung bases are clear. No pleural effusion heart is normal in size withoutpericardial effusion. Normal liver morphology. No suspicious hepatic lesions. The previously seenperiportal edema appears to have resolved. Gallbladder is unremarkable. Nobiliary dilatation. Spleen, pancreas and adrenal glands are unremarkable. Kidneys are symmetric in size without evidence of hydronephrosis or renalcalculi. Ureters are normal in caliber. Urinary bladder is unremarkable.Prostate is normal in size. Esophagus, stomach and duodenum are unremarkable. The previously seen atdistal stomach wall thickening appears resolved. Normal caliber small andlarge bowel. Appendix is unremarkable. No pneumatosis or portal venous gas.No free pelvic fluid or pneumoperitoneum. Aorta is normal in caliber. The celiac, superior mesenteric, inferiormesenteric and bilateral single renal arteries are widely patent. The iliacand visualized femoral arteries are widely patent. No enlarged abdominal or pelvic lymph nodes. Abdominal wall is intact. No aggressive osseous lesions. RECOMMENDATIONS:No acute findings within the abdomen and pelvis. The mesenteric arteries arewidely patent. Previously seen periportal edema has resolved. Previously seen gastric wall thickening has also resolved. US Abdomen Limited Result Date: July 31, 2025 Verified By: JON RANDALL MD CLINICAL STATEMENT: IMPRESSION: Unremarkable right upper quadrant ultrasound. I have personally reviewed the images of this examination and agree with theresident's findings and interpretation. Assessment/Plan Epigastric pain, improved Nausea with vomiting, resolved Marijuana use Patient admitted with a 4-5 history of intermittent upper abdominal pain of unclear etiology. He did initially have some mild nausea with vomiting postprandially, although this has resolved. His abdominal pain has nearly resolved as well, still with some mild tenderness to the epigastrium with deep palpation. Also with some discomfort in the right lower quadrant he feels is related to some constipation as he has not had a bowel movement for nearly 1 week. There is a questionable cannabinoid hyperemesis syndrome, although nausea/vomiting was brief and would typically not be accompanied with as much abdominal pain as he had reported. Imaging thus far including an ultrasound, Doppler and a CTA of the abdomen have been nondiagnostic. No laboratory abnormalities as well. We discussed proceeding with a nonurgent EGD which he is quite interested in for reassurance. States his father had a neuroendocrine tumor of the stomach. Explained this may not be diagnostic which he understands. Patient is currently n.p.o. and will proceed with endoscopy this afternoon with Dr. Arrieta. Should this be unrevealing, stable for discharge once he has shown he can tolerate a regular diet. [facility]. Digitally Signed by CEDRIC SANTOS PA-C on 08/02/2025 10:19 AM [facility] 08-01-2025 Gastroenterology Progress note Date of Service August 01, 2025 Chief Complaint Diffuse abdominal pain Subjective Patient has following sleep comfortably. I had to wake him up. After he was awake, he denied abdominal pain. He told me he had tolerated clear liquid diet without nausea vomiting. The pain had already resolved. He had passed gas. There was no dysphagia odynophagia. Objective Vitals and Measurements T: 36.8 C (Oral) TMIN: 36.7 C (Oral) TMAX: 37.0 C (Oral) HR: 72 RR: 16 BP: 142/88 SpO2: 98% HT: 188 cm WT: 91.9 kg BMI: 26 Intake and Output Last 24 hours Intake Medication 4.00 Administration Information 312.50 Output Stool Count 0.00 Urine Count 1.00 Total Summary Total Intake 316.50 Total Output 0.00 Fluid Balance 316.50 Physical Exam General Appearance: Patient was not in distress on my evaluation Head: Atraumatic and normocephalic EENT: EOMI, PERRLA, no oropharyngeal erythema, no tonsillar exudates, no conjunctival injection. sclera anicteric. Neck: No thyromegaly, no cervical lymphadenopathy, trachea midline Cardiac: S1 and S2 normal. RRR. No murmurs, rubs, or gallops. No JVD. No hepatojugular reflex. Lungs: Good air entry bilaterally. No increased work for breathing. No wheezes, rhonchi, or rales. Abdomen: Soft, not distention, there was no tenderness or reboud tenderness and bowel sound was normal Musculoskeletal: Full range of motion upper and lower extremities. No CVA tenderness. Extremities: moist, warm, normal motility Neurological: No gross motor deficits Skin: moist, warm, there was no rash. Psychiatric: Alert and oriented, well groomed, euthymic. cooperative Weight Dosing Weight: 91.9 kg (08/01/25) Dosing Weight: 91.9 kg (07/31/25) Medications Medications (13) Active Scheduled: (2) dicyclomine 10 mg capsule 20 mg 2 cap(s), Oral, achs pantoprazole 40 mg VIAL 40 mg, IV Push, q12h Continuous: (1) NS (0.9% nacl) 1,000 mL 1,000 mL, Intravenous, 125 mL/hr PRN: (10) acetaminophen 325 mg Tablet 650 mg 2 tab(s), Oral, q4h acetaminophen 325 mg Tablet 650 mg 2 tab(s), Oral, q4h acetaminophen-OXYcodone 325 mg-5 mg Tablet 1 tab(s), Oral, q4h albuterol - ipratropium 2.5 mg-0.5 mg/3 mL Inhal Nereida UD 3 mL, Inhalation, q4hRT dextrose 50% Solution Disp syringe 50 mL 25 gram(s) 50 mL, IV Push, AsDirected guaifenesin 100 mg/5 mL Liquid 120 mL 200 mg 10 mL, Oral, q4h melatonin 3 mg tablet 3 mg 1 tab(s), Oral, qHS morphine 2 mg/mL 1 mL syringe 1 mg 0.5 mL, IV Push, q4h polyethylene glycol 3350 - UD packet 17 gram(s) 15 mL, Oral, qDay prochlorperazine 10 mg/2 mL vial 5 mg 1 mL, IV Push, q6h Lab Results 08/01 05:01 WBC: 7.3 Hgb: 15.1 Hct: 43.6 Platelet: 194 Neutrophil %: 66.6 Protime: 11.7 PT International Ratio: 1.0 Glucose Level: 98 Sodium Level: 142 Potassium Level: 3.8 BUN: 12.0 Creatinine Lvl (s): 0.97 07/31 22:54 WBC: 7.4 Hgb: 15.6 Hct: 43.9 Platelet: 210 Neutrophil %: 70.3 Glucose Level: 110 Sodium Level: 140 Potassium Level: 3.8 BUN: 12.0 Creatinine Lvl (s): 0.97 EKG No qualifying data available. Assessment/Plan 1. Acute onset abdominal pain has resolved this afternoon. The physical examination did not elicit any abdominal tenderness on the palpation now. Patient had passed gas. I do not know the etiology of abdominal pain diffusely over the past 3 days. I had contacted with the primary team to ask them to consult surgeon to determine whether patient might have intermittent or transient pathologies such as intestinal intussusception or internal hernia. Currently, based on patient medical history, chronic gastritis or peptic ulcer disease will unlikely because patient did not have persistent abdominal pain. Currently pain has already resolved. However, if the surgeon did not think patient has any other surgical pathologies, we may consider a non urgent EGD to further look at the stomach. Time Spent 30 mins Digitally Signed by JENNI BARNHART MD on 08/01/2025 10:06 PM [facility] 08-01-2025 Evaluation + Plan note Extrac alen from: Title:Clinical Document Author:KELLEY YU MD Date:08/01/25 [facility] Hospitalist History and Physical Date of Admission: patient is being admitted on August 01, 2025 Chief complaint: abdominal pain History of present illness: History is taken from talking with emergency room physician Dr. antonio zamora as well as talking with the patient. Patient has a past medical history of marijuana use, chronic back pain. This is the patient's fourth ER visit in the last four days due to having ongoing intractable epigastric abdominal pain with intractable nausea and vomiting. He denies diarrhea. Denies fevers, chills or night sweats. Has never had an episode like this before. No recent travel or sick contacts. The emesis has been nonbloody. Patient does state that he smokes marijuana for back pain. Denies NSAID use. Since presenting to the emergency room the patient has been afebrile, hemodynamically stable, 94% room air. The following labs and imaging were personally reviewed CBC within normal limits CMP within normal limits urinalysis not concerning for infection lipase 29 high-sensitivity troponin five CT abdomen and pelvis with contrast showed gastritis/peptic ulcer disease. Diffuse hepatic periportal edema. This is nonspecific and can be seen in the setting of acute hepatitis, passive hepatic congestion and or other etiologies. CT angiography of the chest with contrast did not show any concerning finding ultrasound of the abdomen did not show any concerning finding EKG personally reviewed and interpreted showed normal sinus rhythm In emergency room the patient was given Benadryl, Toradol, Protonix Past medical history: marijuana use Family history: hypertension Social history: smokes marijuana Medications: Home Medications (6) Active, medications were not verified by pharmacy at the time of this dictation Bentyl use dicyclomine 20 mg, Oral, QID Arnold 325- 5 mg oral tablet 1 tab(s), PRN, Oral, q6h ondansetron 4 mg oral tablet, disintegrating 4 mg = 1 tab(s), PRN, Oral, q6h Pepcid 20 mg oral tablet 20 mg = 1 tab(s), Oral, BID Prevacid 15 mg oral delayed release capsule 15 mg = 1 cap(s), Oral, qDay sucralfate 1 g oral tablet 1 gram(s) = 1 tab(s), Oral, QID Allergies: NKA Review of systems: See HPI for pertinent positives and negatives. All other review of systems have been reviewed and they are negative. Vitals Signs(Last 24 hrs)__Last Charted Minimum Maximum Temp36.8(JUL 31 18:28)36.8(JUL 31 18:28)36.8(JUL 31 18:) CWC328(JUL 31 23:43)140(JUL 31 23:43)H 175(JUL 31 18:28) DBP85(JUL 31 23:43)85(JUL 31 23:43)H 96(JUL 31 18:28) Physical examination: HEENT: No Pallor, No Icterus Cardiac: RRR, No murmur Lungs: CTA, good air entry Abdomen: Soft, nondistended, tender to palpation in the epigastric area Musculoskeletal: No joint pains or swelling Extremities: No edema, good pulses Neurological: Alert, no deficits Skin: No rash, no nodules Labs: WBC: 7.4 10^3/mcL (07/31/25 22:54:00) RBC: 4.97 10^6/mcL (07/31/25 22:54:00) Hgb: 15.6 G/dL (07/31/25 22:54:00) Hct: 43.9 % (07/31/25 22:54:00) MCV: 88.3 fL (07/31/25 22:54:00) MCH: 31.3 pg (07/31/25 22:54:00) MCHC: 35.5 G/dL (07/31/25 22:54:00) RDW: 13.6 % (07/31/25 22:54:00) Platelet: 210 10^3/mcL (07/31/25 22:54:00) MPV: 6.6 fL (07/31/25 22:54:00) Monocyte Distribution Width: 16.41 (07/31/25 22:54:00) Neutrophil %: 70.3 % (07/31/25 22:54:00) Lymphocyte %: 21.6 % (07/31/25 22:54:00) Monocyte %: 6.2 % (07/31/25 22:54:00) Eosinophil %: 1.4 % (07/31/25 22:54:00) Basophil %: 0.5 % (07/31/25 22:54:00) Neutrophil, Absolute: 5.2 10^3/mcL (07/31/25 22:54:00) Lymphocyte, Absolute: 1.6 10^3/mcL (07/31/25 22:54:00) Monocyte, Absolute: 0.5 10^3/mcL (07/31/25 22:54:00) Eosinophil, Absolute: 0.1 10^3/mcL (07/31/25 22:54:00) Basophil, Absolute: 0 10^3/mcL (07/31/25 22:54:00) Glucose Level: 110 mg/dL (07/31/25 22:54:00) Sodium Level: 140 mEq/L (07/31/25 22:54:00) Potassium Level: 3.8 mEq/L (07/31/25 22:54:00) Chloride: 107 mEq/L (07/31/25 22:54:00) CO2: 26 mEq/L (07/31/25 22:54:00) Electrolyte Balance: 7 mEq/L (07/31/25 22:54:00) BUN: 12 mg/dL (07/31/25 22:54:00) Creatinine Lvl (s): 0.97 mg/dL (07/31/25 22:54:00) Estimated Glomerular Filtration Rate: 106 ml/min/1.73sqm (07/31/25 22:54:00) BUN/Creatinine Ratio: 12.4 ratio (07/31/25 22:54:00) Calcium Lvl: 10.2 mg/dL (07/31/25 22:54:00) Total Protein: 7.5 G/dL (07/31/25 22:54:00) Albumin Level: 4.4 G/dL (07/31/25 22:54:00) Globulin: 3.1 G/dL (07/31/25 22:54:00) A/G Ratio: 1.4 ratio (07/31/25 22:54:00) Bili Total: 1.1 mg/dL (07/31/25 22:54:00) Alk Phos: 59 U/L (07/31/25 22:54:00) AST/SGOT: 19 U/L (07/31/25 22:54:00) ALT/SGPT: 21 U/L (07/31/25 22:54:00) Lipase Level: 29 U/L (07/31/25 22:54:00) No qualifying data available. Assessment and plan: Fourth visit to the emergency room in the last several days due to having intractable nausea and vomiting and abdominal pain. Acute gastritis/peptic ulcer disease. Patient does require two midnight hospital stay due to having recurrent severe abdominal pain with intractable nausea and vomiting with CT findings concerning for gastritis/peptic ulcer disease. NPO with IV fluids in case of procedure. Will consult gastroenterology. IV BID Protonix. Will check repeat labs in the morning. Patient cannot be treated outpatient due to high risk for severe dehydration. Hypertension secondary pain. Will monitor Marijuana use Chronic back pain. No acute issues Prophylaxis SCD in case of procedure Code status full Addendum by KELLEY YU MD on August 01, 2025 3:41 EDT medications will need reconciled once ey are verified [facility] 10-05-2025 Note* Exam Date Time Procedure Performing Provider Status 08/01/25 10:20 AM US Doppler Abdomen NBA MOSES; Auth (Verified) [id number] ORIGINAL EXAMINATION: HEPATIC DOPPLER ULTRASOUND ONLY 08/01/2025 10:20 am COMPARISON: CTA abdomen and pelvis same day, abdominal ultrasound 07/31/2025, CT abdomen and pelvis 07/29/2025 HISTORY: ORDERING SYSTEM PROVIDED HISTORY: Reason for Exam: Please check the portal vein, hepatic event thrombosis FINDINGS: The visualized liver is normal in echotexture and echogenicity. The main portal vein is normal in caliber and patent. The portal venous system demonstrates normal directional flow. The hepatic veins are patent. IMPRESSION: No evidence of portal venous thrombosis. Normal portal venous directional flow. Interpreted by: Nba Moses Preliminary Report By: Nba Moses Electronically signed By Nba Moses Dictated Date: 08/01/2025 10:39:43 AM Prelim Date: 08/01/2025 10:42:48 AM Sign Date: 08/01/2025 10:42:48 AM Ordering Provider: JENNI BARNHART RP [id number] Note* Exam Date Time Procedure Performing Provider Status 08/01/25 10:[address] Angiography Abd A uday + Iliofemoral NBA MOSES DO; Auth (Verified) [id number] ORIGINAL EXAMINATION: CTA OF THE ABDOMEN AND PELVIS WITH CONTRAST 08/01/2025 10:18 am: TECHNIQUE: CTA of the abdomen and pelvis was performed with the administration of intravenous contrast. Multiplanar reformatted images are provided for review. MIP images are provided for review. Automated exposure control, iterative reconstruction, and/or weight based adjustment of the mA/kV was utilized to reduce the radiation dose to as low as reasonably achievable. COMPARISON: CT abdomen and pelvis 07/29/2025 HISTORY: ORDERING SYSTEM PROVIDED HISTORY: Reason for Exam: pt c/o severe low abd pain into ribs and back Acute diffuse abdominal pain, postprandial abdominal pain IMPRESSION: Lung bases are clear. No pleural effusion heart is normal in size without pericardial effusion. Normal liver morphology. No suspicious hepatic lesions. The previously seen periportal edema appears to have resolved. Gallbladder is unremarkable. No biliary dilatation. Spleen, pancreas and adrenal glands are unremarkable. Kidneys are symmetric in size without evidence of hydronephrosis or renal calculi. Ureters are normal in caliber. Urinary bladder is unremarkable. Prostate is normal in size. Esophagus, stomach and duodenum are unremarkable. The previously seen at distal stomach wall thickening appears resolved. Normal caliber small and large bowel. Appendix is unremarkable. No pneumatosis or portal venous gas. No free pelvic fluid or pneumoperitoneum. Aorta is normal in caliber. The celiac, superior mesenteric, inferior mesenteric and bilateral single renal arteries are widely patent. The iliac and visualized femoral arteries are widely patent. No enlarged abdominal or pelvic lymph nodes. Abdominal wall is intact. No aggressive osseous lesions. RECOMMENDATIONS: No acute findings within the abdomen and pelvis. The mesenteric arteries are widely patent. Previously seen periportal edema has resolved. Previously seen gastric wall thickening has also resolved. Interpreted by: Nba Moses Preliminary Report By: Nba Moses Electronically signed By Nba Moses Dictated Date: 08/01/2025 10:23:48 AM Prelim Date: 08/01/2025 10:29:18 AM Sign Date: 08/01/2025 10:29:18 AM Ordering Provider: JENNI BARNHART RP [id number] Gastroenterology Consult note Date of Service June 01, 2025 Reason for Consultation acute onset intermittent diffuse abdominal pain Referring Physician Hospitalist History of Present Illness A 35 years old male patient with a past medical history of chronic lower back pain, usingmarijuana on daily for years presented with recurrent and intermittent acute onset diffuse abdominal pain over the past 4 to 5 days. Patient was in his usual health status until 4 or 5 days ago when he had acute onset diffuse abdominal pain that could reach 10 out of 10 intensity per patient self-report. The pain was intermittent. Every time when he went to the local emergency room and received certain treatment, the pain will be subsided for the next 7 to 8 hours. Afterwards, the pain took place again. The pain was located diffuse on the abdomen. There was no specific location of the pain inthe abdomen. The pain was dull pain in nature. The pain did not radiate to the back. But the patient did have chronic lower back pain. When patient did not eat or drink there was no nausea or vomiting. However when patient eat or drink when he had pain the pain could get worse and also patient has emesis which was nonbloody emesis. When I entered his room this morning, the patient told me the pain was a 4 out of 10 intensity and had significant improved since yesterday. The patient denied taking NSAID medications. Patient denied heartburn, regurgitation, bloating, change in bowel habits, change in stool caliber, hematochezia or melena, diarrhea or constipation. The last bowel happened 3 days ago. The stools are brownish. Before the pain patient is a regular bowel movement. Patient weight had been stable. When I entered his room this morning, patient looks fine and had played with his 2 kids on the bed. Over the past 2 days, patient received [address] scan of abdomen and pelvis which was unremarkable other than the most recent CT scan showed diffuse hepatic periportal edema (07/29/2025). The patient ultrasound of the liver was unremarkable. Patient CBC, liver function test and renal function test were normal. Over the past 1/2 weeks, patient drinks 4 beers every day. Before that, patient only occasional drinking beers Review of Systems Review of systems are negative except as mentioned in HPI. Physical Exam Vitals and Measurements T: 36.7 C (Oral) TMIN: 36.7 C (Oral) TMAX: 37.0 C (Oral) HR: 74 RR: 17 BP: 143/94 SpO2: 96% HT: 188cm WT: 91.9 kg BMI: 26 Weight Dosing Weight: 91.9 kg (08/01/25) Dosing Weight: 91.9 kg (07/31/25) General Appearance: Patient was not in distress on my evaluation Head: Atraumatic and normocephalic EENT: EOMI, PERRLA, no oropharyngeal erythema, no tonsillar exudates, no conjunctival injection. sclera anicteric. Neck: No thyromegaly, no cervical lymphadenopathy, trachea midline Cardiac: S1 and S2 normal. RRR. No murmurs, rubs, or gallops. No JVD. No hepatojugular reflex. Lungs: Good air entry bilaterally. No increased work for breathing. No wheezes, rhonchi, or rales. Abdomen: Soft, not distention, there was no tenderness or reboud tenderness and bowel sound was normal Musculoskeletal: Full range of motion upper and lower extremities. No CVA tenderness. Extremities: moist, warm, normal motility Neurological: No gross motor deficits Skin: moist, warm, there was no rash. Psychiatric: Alert and oriented, well groomed, euthymic. cooperative Lab Results 08/01 05:01 WBC: 7.3 Hgb: 15.1 Hct: 43.6 Platelet: 194 Neutrophil %: 66.6 Protime: 11.7 PT International Ratio: 1.0 Glucose Level: 98 Sodium Level: 142 Potassium Level: 3.8 BUN: 12.0 Creatinine Lvl (s): 0.97 07/31 22:54 WBC: 7.4 Hgb: 15.6 Hct: 43.9 Platelet: 210 Neutrophil %: 70.3 Glucose Level: 110 Sodium Level: 140 Potassium Level: 3.8 BUN: 12.0 Creatinine Lvl (s): 0.97 Assessment/Plan Orders: CT Angio Abd/Pelvis/Bilat Lower Extrem, 08/01/25 9:06:00 EDT, 08/01/25 9:06:00 EDT, Stat, Acute diffuse abdominal pain, postprandial abdominal pain, Please comment on celiac branch, MA and LILO patency, please also measure the angle between aorta and the celiac branch to make sure there is n... US Doppler Abdomen, 08/01/25 9:08:00 EDT, 08/01/25 9:08:00 EDT, Stat, Please check the portal vein,hepatic event thrombosis, Portable: No, Wt k.9, ME5N 1. Recurrent intermittent diffuse abdominal pain over the past 4 to 5 days which was acute onset. He did not associate with GI bleeding. He did have mild nausea and vomiting when he eat or drink. However he did not have chronic nausea vomiting. I am not quite sure the etiology for the abdominal pain intermittently. It could be related to cannabinoid hyperemesis syndrome, abdominal neurologic pain. I Recommended symptomatic to treat patient first. I would recommend a CT angiogram to make sure there is no mesenteric ischemia. I also order abdominal Doppler to look at the portal venous and hepatic vein because patient had a diffuse hepatic preportal edema. Fortunately, the patient liver function test was normal. I also recommend the primary team to order MRI to further look at the diffuse hepatic periportal edema. Currently, I would like to follow the CT result, MRI result and Doppler results first. If all the result unremarkable, we will consider an EGD for further evaluation. I want to emphasize that patientdid not have focalize of epigastric Tee pain. Patient complained diffuse abdominal pain. Therefore, I would like to look at the cross imaging tests first. 2. Chronic using marijuana. I strongly recommend being absent from marijuana Addendum: I reviewed the CT and US reports. I currently could not find the etiology of the abdominal pain, I am not quite sure if the EGD would indicated or not as he complained of diffusely abd pain (improved) instead of epigastric pain. I would suggest considering consulting a general surgeon to se i f they have any inputs or rule outany acute abdomen that I could miss, such as internal hernia or intestinal intussusception ect. Problem List/Past Medical History Ongoing No chronic problems Procedure/Surgical History Anterior cruciate ligament rupture: 2011 Anterior cruciate ligament rupture: 2010 Medications Inpatient Bentyl, 20 mg= 2 cap(s), Oral, achs Dextrose 50% IV Push, 25 gram(s)= 50 mL, IV Push, AsDirected, PRN DuoNeb, 3 mL, Inhalation, q4hRT, PRN guaiFENesin, 200 mg= 10 mL, Oral, q4h, PRN melatonin, 3 mg= 1 tab(s), Oral, qHS, PRN Miralax Powder Packet, 17 gram(s)= 15 mL, Oral, qDay, PRN morphine, 1 mg= 0.5 mL, IV Push, q4h, PRN Normal Saline 1,000 mL, 1000 mL, Intravenous Percocet 325/5, 1 tab(s), Oral, q4h, PRN prochlorperazine, 5 mg= 1 mL, IV Push, q6h, PRN Protonix IV Push, 40 mg, IV Push, q12h Tylenol, 650 mg= 2 tab(s), Oral, q4h, PRN Tylenol, 650 mg= 2 tab(s), Oral, q4h, PRN Home Bentyl use dicyclomine , 20 mg, Oral, QID Arnold 325- 5 mg oral tablet, 1 tab(s), Oral, q6h, PRN ondansetron 4 mg oral tablet, disintegrating, 4 mg= 1 tab(s), Oral, q6h, PRN Pepcid 20 mg oral tablet, 20 mg= 1 tab(s), Oral, BID Prevacid 15 mg oral delayed release capsule, 15 mg= 1 cap(s), Oral, qDay sucralfate 1 g oral tablet, 1 gram(s)= 1 tab(s), Oral, QID Allergies NKA Social History Alcohol Type: denies., 08/01/2025 Home/Environment Living situation: Home/Independent. Safe place to go: Yes. Domestic Concerns: None., 08/01/2025 Nutrition/Health Type of diet: Regular. Appetite Good., 08/01/2025 Substance Abuse Use: Current. Type: Marijuana., 08/01/2025 Tobacco Nicotine Use: Never (less than 100 in lifetime)., 08/01/2025 Family History Cancer: Father. Diabetes: Father. Heart attack: Grandparent. Health Status Family Member(s) Immunizations No qualifying data available. Digitally Signed by JENNI BARNHART MD on 08/01/2025 09:16 AM Digitally Signed by JENNI BARNHART MD on 08/01/2025 02:44 PM Digitally Signed by JENNI BARNHART MD on 08/01/2025 02:50 PM [id number] Note Subjective: Patient seen for abdominal pain, possible gastritis versus peptic ulcer disease patient was examined and evaluated today, patient denies chest pain, no shortness of breath, no cough, no fever or chills, continues to have abdominal pain that he describes as moderate to severe, inthe epigastric area, in the periumbilical area, patient does feel nauseous, he threw up every time after he put something in his mouth, including water, he is currently n.p.o., he is on IV fluid, no fever or chills, no headache. Vitals Signs(Last 24 hrs)__Last Charted Minimum Maximum Temp36.7(AUG 01 08:09)36.7(AUG 01 08:09)37.0(AUG 01 03:08) SBPH 143(AUG 01 08:09)134(AUG 01 03:08)H 175(JUL 31 18:28) DBPH 94(AUG 01 08:09)85(JUL 31 23:43)H 96(JUL 31 18:28) Physical examination: HEENT, is atraumatic normocephalic, pupils are equal, no pallor Neck supple no JVD Lungs clear to auscultation bilaterally, no wheezes, no rhonchi, no accessory muscle use Heart S1-S2 regular Abdomen soft mild tenderness in the epigastric area, no rebound tenderness guarding or rigidity, nondistended bowel sounds are present all 4 quadrants Lower extremities show no edema, no cyanosis, pulses palpable +2 bilaterally Skin showed no rash Neurological examination patient is awake alert and oriented 3, cranial nerves are grossly intact, no focal neurological defect could be appreciated Assessment and plan: 1. Abdominal pain, differential diagnosis to include acute gastritis, peptic ulcer disease. 2. Hypertension. 3. Marijuana use. 4. Chronic back pain. Plan: 1. Continue with IV fluid. 2. Continue with IV Protonix 3. I personally reviewed patient's home medication, and continued what is necessary for her stay during the hospitalization. 4. Utilize bilateral SCDs for DVT prophylaxis since the patient is low risk for DVT, and he does have abdominal pain which we think it could be due to peptic ulcer disease. 5. Follow further recommendations from gastroenterology team. 6. Continue to monitor patient clinically as well as his labs. Patient understood his plan of care all his questions were answered, his concerns were addressed, he declined my offer to call his family stating that he will update the family by himself. Level of Care Indication Regular Floor DVT Prophylaxis Other: specify in note Maintenance IVF Indication NPO Indwelling Urinary Catheter Indication NA No indwelling catheter Anticipated Timeline of Discharge 48 hours Anticipated DC Disposition Home without services Labs: Basic Metabolic Profile Glucose Level: 98 mg/dL (08/01/25 05:01:00) Glucose Level: 110 mg/dL (07/31/25 22:54:00) Sodium Level: 142 mEq/L (08/01/25 05:01:00) Sodium Level: 140 mEq/L (07/31/25 22:54:00) Potassium Level: 3.8 mEq/L (08/01/25 05:01:00) Potassium Level: 3.8 mEq/L (07/31/25 22:54:00) Chloride: 108 mEq/L (08/01/25 05:01:00) Chloride: 107 mEq/L (07/31/25 22:54:00) CO2: 27 mEq/L (08/01/25 05:01:00) CO2: 26 mEq/L (07/31/25 22:54:00) BUN/Creatinine Ratio: 12.4 ratio (08/01/25 05:01:00) BUN/Creatinine Ratio: 12.4 ratio (07/31/25 22:54:00) Complete Blood Count WBC: 7.3 10^3/mcL (08/01/25 05:01:00) WBC: 7.4 10^3/mcL (07/31/25 22:54:00) RBC: 4.86 10^6/mcL (08/01/25 05:01:00) RBC: 4.97 10^6/mcL (07/31/25 22:54:00) Hgb: 15.1 G/dL (08/01/25 05:01:00) Hgb: 15.6 G/dL (07/31/25 22:54:00) Hct: 43.6 % (08/01/25 05:01:00) Hct: 43.9 % (07/31/25:54:00) MCV: 89.6 fL (08/01/25 05:01:00) MCV: 88.3 fL (07/31/25:54:00) MCH: 31.2 pg (08/01/25 05:01:00) MCH: 31.3 pg (07/31/25 22:54:00) MCHC: 34.8 G/dL (08/01/25 05:01:00) MCHC: 35.5 G/dL (07/31/25:54:00) RDW: 13.4 % (08/01/25 05:01:00) RDW: 13.6 % (07/31/25:54:00) Platelet: 194 10^3/mcL (08/01/25 05:01:00) Platelet: 210 10^3/mcL (07/31/25:54:00) MPV: 6.6 fL (08/01/25 05:01:00) MPV: 6.6 fL (07/31/25:54:00) Medications (12) Active Scheduled: (1) pantoprazole 40 mg VIAL 40 mg, IV Push, q12h Continuous: (1) NS (0.9% nacl) 1,000 mL 1,000 mL, Intravenous, 125 mL/hr PRN: (10) acetaminophen 325 mg Tablet 650 mg 2 tab(s), Oral, q4h acetaminophen 325 mg Tablet 650 mg 2 tab(s), Oral, q4h acetaminophen-OXYcodone 325 mg-5 mg Tablet 1 tab(s), Oral, q4h albuterol - ipratropium 2.5 mg-0.5 mg/3 mL Inhal Nereida UD 3 mL, Inhalation, q4hRT dextrose 50% Solution Disp syringe 50 mL 25 gram(s) 50 mL, IV Push, AsDirected guaifenesin 100 mg/5 mL Liquid 120 mL 200 mg 10 mL, Oral, q4h melatonin 3 mg tablet 3 mg 1 tab(s), Oral, qHS morphine 2 mg/mL 1 mL syringe 1 mg 0.5 mL, IV Push, q4h polyethylene glycol 3350 - UD packet 17 gram(s) 15 mL, Oral, qDay prochlorperazine 10 mg/2 mL vial 5 mg 1 mL, IV Push, q6h Signature: Elaine Zarco MD Digitally Signed by ELAINE ZARCO MD on 08/01/2025 01:52 PM [id number] History and physical note [facility] Hospitalist History and Physical Date of Admission: patient is being admitted on August 01, 2025 Chief complaint: abdominal pain History of present illness: History is taken from talking with emergency room physician Dr. antonio zamora as well as talking with the patient. Patient has a past medical history of marijuana use, chronic back pain. This is the patient's fourth ER visit in the last four days due to having ongoing intractable epigastric abdominal pain with intractable nausea and vomiting. He denies diarrhea. Denies fevers, chillsor night sweats. Has never had an episode like this before. No recent travel or sick contacts. The emesis has been nonbloody. Patient does state that he smokes marijuana for back pain. Denies NSAID use. Since presenting to the emergency room the patient has been afebrile, hemodynamically stable, 94% room air. The following labs and imaging were personally reviewed CBC within normal limits CMP within normal limits urinalysis not concerning for infection lipase 29 high-sensitivity troponin five CT abdomen and pelvis with contrast showed gastritis/peptic ulcer disease. Diffuse hepatic periportal edema. This is nonspecific and can be seen in the setting of acute hepatitis, passive hepatic congestion and or other etiologies. CT angiography of the chest with contrast did not show any concerning finding ultrasound of the abdomen did not show any concerning finding EKG personally reviewed and interpreted showed normal sinus rhythm In emergency room the patient was given Benadryl, Toradol, Protonix Past medical history: marijuana use Family history: hypertension Social history: smokes marijuana Medications: Home Medications (6) Active, medications were not verified by pharmacy at the time of this dictation Bentyl use dicyclomine 20 mg, Oral, QID Arnold 325- 5 mg oral tablet 1 tab(s), PRN, Oral, q6h ondansetron 4 mg oral tablet, disintegrating 4 mg = 1 tab(s), PRN, Oral, q6h Pepcid 20 mg oral tablet 20 mg = 1 tab(s), Oral, BID Prevacid 15 mg oral delayed release capsule 15 mg = 1 cap(s), Oral, qDay sucralfate 1 g oral tablet 1 gram(s) = 1 tab(s), Oral, QID Allergies: NKA Review of systems: See HPI for pertinent positives and negatives. All other review of systems have been reviewed and they are negative. Vitals Signs(Last 24 hrs)__Last Charted Minimum Maximum Temp36.8(JUL 31 18:28)36.8(JUL 31 18:28)36.8(JUL 31:) AWL086(JUL 31 23:43)140(JUL 31 23:43)H 175(JUL 31 18:28) DBP85(JUL 31 23:43)85(JUL 31 23:43)H 96(JUL 31 18:28) Physical examination: HEENT: No Pallor, No Icterus Cardiac: RRR, No murmur Lungs: CTA, good air entry Abdomen: Soft, nondistended, tender to palpation in the epigastric area Musculoskeletal: No joint pains or swelling Extremities: No edema, good pulses Neurological: Alert, no deficits Skin: No rash, no nodules Labs: WBC: 7.4 10^3/mcL (07/31/25 22:54:00) RBC: 4.97 10^6/mcL (07/31/25 22:54:00) Hgb: 15.6 G/dL (07/31/25 22:54:00) Hct: 43.9 % (07/31/25 22:54:00) MCV: 88.3 fL (07/31/25 22:54:00) MCH: 31.3 pg (07/31/25 22:54:00) MCHC: 35.5 G/dL (07/31/25 22:54:00) RDW: 13.6 % (07/31/25 22:54:00) Platelet: 210 10^3/mcL (07/31/25 22:54:00) MPV: 6.6 fL (07/31/25 22:54:00) Monocyte Distribution Width: 16.41 (07/31/25 22:54:00) Neutrophil %: 70.3 % (07/31/25 22:54:00) Lymphocyte %: 21.6 % (07/31/25 22:54:00) Monocyte %: 6.2 % (07/31/25 22:54:00) Eosinophil %: 1.4 % (07/31/25 22:54:00) Basophil %: 0.5 % (07/31/25 22:54:00) Neutrophil, Absolute: 5.2 10^3/mcL (07/31/25 22:54:00) Lymphocyte, Absolute: 1.6 10^3/mcL (07/31/25 22:54:00) Monocyte, Absolute: 0.5 10^3/mcL (07/31/25 22:54:00) Eosinophil, Absolute: 0.1 10^3/mcL (07/31/25 22:54:00) Basophil, Absolute: 0 10^3/mcL (07/31/25 22:54:00) Glucose Level: 110 mg/dL (07/31/25 22:54:00) Sodium Level: 140 mEq/L (07/31/25 22:54:00) Potassium Level: 3.8 mEq/L (07/31/25 22:54:00) Chloride: 107 mEq/L (07/31/25 22:54:00) CO2: 26 mEq/L (07/31/25 22:54:00) Electrolyte Balance: 7 mEq/L (07/31/25 22:54:00) BUN: 12 mg/dL (07/31/25 22:54:00) Creatinine Lvl (s): 0.97 mg/dL (07/31/25 22:54:00) Estimated Glomerular Filtration Rate: 106 ml/min/1.73sqm (07/31/25 22:54:00) BUN/Creatinine Ratio: 12.4 ratio (07/31/25 22:54:00) Calcium Lvl: 10.2 mg/dL (07/31/25 22:54:00) Total Protein: 7.5 G/dL (07/31/25 22:54:00) Albumin Level: 4.4 G/dL (07/31/25 22:54:00) Globulin: 3.1 G/dL (07/31/25 22:54:00) A/G Ratio: 1.4 ratio (10/04/25 22:54:00) Bili Total: 1.1 mg/dL (07/31/25 22:54:00) Alk Phos: 59 U/L (07/31/25 22:54:00) AST/SGOT: 19 U/L (07/31/25 22:54:00) ALT/SGPT: 21 U/L (07/31/25 22:54:00) Lipase Level: 29 U/L (07/31/25 22:54:00) No qualifying data available. Assessment and plan: Fourth visit to the emergency room in the last several days due to having intractable nausea and vomiting and abdominal pain. Acute gastritis/peptic ulcer disease. Patient does require two midnight hospital stay due to havingrecurrent severe abdominal pain with intractable nausea and vomiting with CT findings concerning for gastritis/peptic ulcer disease. NPO with IV fluids in case of procedure. Will consult gastroenterology. IV BID Protonix. Will check repeat labs in the morning. Patient cannot be treated outpatient due to high risk for severe dehydration. Hypertension secondary pain. Will monitor Marijuana use Chronic back pain. No acute issues Prophylaxis SCD in case of procedure Code status full Digitally Signed by KELLEY YU MD on 08/01/2025 02:31 AM [id number] History and physical note [facility] Hospitalist History and Physical Date of Admission: patient is being admitted on August 01, 2025 Chief complaint: abdominal pain History of present illness: History is taken from talking with emergency room physician Dr. antonio zamora as well as talking with the patient. Patient has a past medical history of marijuana use, chronic back pain. This is the patient's fourth ER visit in the last four days due to having ongoing intractable epigastric abdominal pain with intractable nausea and vomiting. He denies diarrhea. Denies fevers, chillsor night sweats. Has never had an episode like this before. No recent travel or sick contacts. The emesis has been nonbloody. Patient does state that he smokes marijuana for back pain. Denies NSAID use. Since presenting to the emergency room the patient has been afebrile, hemodynamically stable, 94% room air. The following labs and imaging were personally reviewed CBC within normal limits CMP within normal limits urinalysis not concerning for infection lipase 29 high-sensitivity troponin five CT abdomen and pelvis with contrast showed gastritis/peptic ulcer disease. Diffuse hepatic periportal edema. This is nonspecific and can be seen in the setting of acute hepatitis, passive hepatic congestion and or other etiologies. CT angiography of the chest with contrast did not show any concerning finding ultrasound of the abdomen did not show any concerning finding EKG personally reviewed and interpreted showed normal sinus rhythm In emergency room the patient was given Benadryl, Toradol, Protonix Past medical history: marijuana use Family history: hypertension Social history: smokes marijuana Medications: Home Medications (6) Active, medications were not verified by pharmacy at the time of this dictation Bentyl use dicyclomine 20 mg, Oral, QID Arnold 325- 5 mg oral tablet 1 tab(s), PRN, Oral, q6h ondansetron 4 mg oral tablet, disintegrating 4 mg = 1 tab(s), PRN, Oral, q6h Pepcid 20 mg oral tablet 20 mg = 1 tab(s), Oral, BID Prevacid 15 mg oral delayed release capsule 15 mg = 1 cap(s), Oral, qDay sucralfate 1 g oral tablet 1 gram(s) = 1 tab(s), Oral, QID Allergies: NKA Review of systems: See HPI for pertinent positives and negatives. All other review of systems have been reviewed and they are negative. Vitals Signs(Last 24 hrs)__Last Charted Minimum Maximum Temp36.8(JUL 31 18:28)36.8(JUL 31 18:28)36.8(JUL 31 18:28) HYQ434(JUL 31 23:43)140(JUL 31 23:43)H 175(JUL 31 18:28) DBP85(JUL 31 23:43)85(JUL 31 23:43)H 96(JUL 31 18:28) Physical examination: HEENT: No Pallor, No Icterus Cardiac: RRR, No murmur Lungs: CTA, good air entry Abdomen: Soft, nondistended, tender to palpation in the epigastric area Musculoskeletal: No joint pains or swelling Extremities: No edema, good pulses Neurological: Alert, no deficits Skin: No rash, no nodules Labs: WBC: 7.4 10^3/mcL (07/31/25 22:54:00) RBC: 4.97 10^6/mcL (07/31/25 22:54:00) Hgb: 15.6 G/dL (07/31/25 22:54:00) Hct: 43.9 % (07/31/25 22:54:00) MCV: 88.3 fL (07/31/25 22:54:00) MCH: 31.3 pg (07/31/25 22:54:00) MCHC: 35.5 G/dL (07/31/25 22:54:00) RDW: 13.6 % (07/31/25 22:54:00) Platelet: 210 10^3/mcL (07/31/25 22:54:00) MPV: 6.6 fL (07/31/25 22:54:00) Monocyte Distribution Width: 16.41 (07/31/25 22:54:00) Neutrophil %: 70.3 % (07/31/25 22:54:00) Lymphocyte %: 21.6 % (07/31/25 22:54:00) Monocyte %: 6.2 % (07/31/25 22:54:00) Eosinophil %: 1.4 % (07/31/25 22:54:00) Basophil %: 0.5 % (07/31/25 22:54:00) Neutrophil, Absolute: 5.2 10^3/mcL (07/31/25 22:54:00) Lymphocyte, Absolute: 1.6 10^3/mcL (07/31/25 22:54:00) Monocyte, Absolute: 0.5 10^3/mcL (07/31/25 22:54:00) Eosinophil, Absolute: 0.1 10^3/mcL (07/31/25 22:54:00) Basophil, Absolute: 0 10^3/mcL (07/31/25 22:54:00) Glucose Level: 110 mg/dL (07/31/25 22:54:00) Sodium Level: 140 mEq/L (07/31/25 22:54:00) Potassium Level: 3.8 mEq/L (07/31/25 22:54:00) Chloride: 107 mEq/L (07/31/25 22:54:00) CO2: 26 mEq/L (07/31/25 22:54:00) Electrolyte Balance: 7 mEq/L (07/31/25 22:54:00) BUN: 12 mg/dL (07/31/25 22:54:00) Creatinine Lvl (s): 0.97 mg/dL (07/31/25 22:54:00) Estimated Glomerular Filtration Rate: 106 ml/min/1.73sqm (07/31/25:54:00) BUN/Creatinine Ratio: 12.4 ratio (07/31/25 22:54:00) Calcium Lvl: 10.2 mg/dL (07/31/25 22:54:00) Total Protein: 7.5 G/dL (07/31/25:54:00) Albumin Level: 4.4 G/dL (07/31/25:54:00) Globulin: 3.1 G/dL (07/31/25:54:00) A/G Ratio: 1.4 ratio (07/31/25:54:00) Bili Total: 1.1 mg/dL (07/31/25:54:00) Alk Phos: 59 U/L (07/31/25 22:54:00) AST/SGOT: 19 U/L (07/31/25 22:54:00) ALT/SGPT: 21 U/L (07/31/25:54:00) Lipase Level: 29 U/L (07/31/25 22:54:00) No qualifying data available. Assessment and plan: Fourth visit to the emergency room in the last several days due to having intractable nausea and vomiting and abdominal pain. Acute gastritis/peptic ulcer disease. Patient does require two midnight hospital stay due to havingrecurrent severe abdominal pain with intractable nausea and vomiting with CT findings concerning for gastritis/peptic ulcer disease. NPO with IV fluids in case of procedure. Will consult gastroenterology. IV BID Protonix. Will check repeat labs in the morning. Patient cannot be treated outpatient due to high risk for severe dehydration. Hypertension secondary pain. Will monitor Marijuana use Chronic back pain. No acute issues Prophylaxis SCD in case of procedure Code status full Digitally Signed by KELLEY YU MD on 08/01/2025 02:31 AM [id number] Note* Exam Date Time Procedure Performing Provider Status 07/31/25 11:40 PM US Abdomen Limited JON RANDALL Anders Vicente; Auth (Verified) [id number] ORIGINAL EXAMINATION: RIGHT UPPER QUADRANT ULTRASOUND 07/31/2025 11:40 pm COMPARISON: CT abdomen and pelvis 07/29/2025. HISTORY: ORDERING SYSTEM PROVIDED HISTORY: Reason for Exam: post Prandial abdominal pain FINDINGS: LIVER: The liver demonstrates normal echogenicity without evidence of intrahepatic biliary ductal dilatation. The liver measures 16.7 cm. No focal hepatic lesion is seen. The main portal vein demonstrates antegrade flow. BILIARY SYSTEM: Gallbladder is unremarkable without evidence of pericholecystic fluid, wall thickening or stones. Negative sonographic Pagan's sign. Common bile duct is within normal limits measuring 2 mm. RIGHT KIDNEY: The right kidney is grossly unremarkable without evidence of hydronephrosis. The right kidney measures 11.2 x 5.7 x 6.3 cm. PANCREAS: Visualized portions of the pancreas are unremarkable. OTHER: No evidence of right upper quadrant ascites. IMPRESSION: Unremarkable right upper quadrant ultrasound. I have personally reviewed the images of this examination and agree with the resident's findings and interpretation. Interpreted by: Jon Randall Preliminary Report By: John Cloud Electronically signed By Jon Randall Dictated Date: 07/31/2025 11:43:33 PM Prelim Date: 07/31/2025 11:46:42 PM Sign Date: 07/31/2025 11:48:16 PM Ordering Provider: JON SANCHEZ RP [id number] Hospital Discharge instructions Patient Education 07/31/2025 00:10:07 Gastritis (Adult) Gastritis (Adult) Gastritis is inflammation and irritation of the stomach lining. You can have it for a short time (acute) or be long lasting (chronic). Infection with bacteria called H pylori most often causes gastritis. More than a third of people in the have these bacteria in their bodies. In many cases, H pylori causes no problems or symptoms. In some people, though, the infection irritates the stomach lining and causes gastritis. H. pylori may be diagnosed through blood, stool, or breath tests, we well as through biopsy during an endoscopy. Other causes of stomach irritation include drinking alcohol, smoking or chewing tobacco, or taking pain-relieving medicines called NSAIDs (such as aspirin or ibuprofen). Certain drugs (such as cocaine) and immune conditions can also cause gastritis. Symptoms of gastritis can include: Belly pain or bloating Feeling full quickly Loss of appetite Nausea or vomiting Vomiting blood or having black stools Feeling more tired than usual An inflamed and irritated stomach lining is more likely to develop a sore called an ulcer. To help prevent this, gastritis should be treated. Home care If needed, our healthcare provider may prescribe medicines. If you have H pylori infection, treating it will likely relieve your symptoms. Other changes can help reduce stomach irritation and help itheal. If you have been prescribed medicines for H pylori infection, take them as directed. Take all of the medicine until it is finished or your healthcare provider tells you to stop, even if you feel better. Your healthcare provider may advise you not to take NSAIDs. If you take daily aspirin for your heart or other medical reasons, do not stop without talking to your healthcare provider first. Don't drink alcohol. Stop smoking. Smoking can irritate the stomach and delay healing. As much as possible, stay away from second hand smoke. Follow-up care Follow up with your healthcare provider, or as advised by our staff. You may need testing to check for inflammation or an ulcer. When to seek medical advice Call your healthcare provider for any of the following: Stomach pain that gets worse or moves to the lower right belly (appendix area) Chest pain that appears or gets worse, or spreads to the back, neck, shoulder, or arm Frequent vomiting (can t keep down liquids) Blood in the stool or vomit (red or black in color) Feeling weak or dizzy Shortness of breath Unexplained weight loss Fever of 100.4 F (38 C) or higher, or as directed by your healthcare provider [id number] [employer]. [address] [place] [address], [place] [address]. All rights reserved. This information is not intended as a substitute for professional medical care. Always follow yourhealthcare professional's instructions. 07/31/2025 00:09:42 Abdominal Pain Abdominal Pain Abdominal pain is pain in the stomach or belly area. Everyone has this pain from time to time. In many cases it goes away on its own. But abdominal pain can sometimes be due to a serious problem, such as appendicitis. So it s important to know when to get help. Causes of abdominal pain There are many possible causes of abdominal pain. Common causes in adults include: Constipation, diarrhea, or gas Stomach acid flowing back up into the esophagus (acid reflux or heartburn) Severe acid reflux, called GERD (gastroesophageal reflux disease) A sore in the lining of the stomach or small intestine (peptic ulcer) Inflammation of the gallbladder, liver, or pancreas Gallstones or kidney stones Appendicitis Intestinal blockage An internal organ pushing through a muscle or other tissue (hernia) Urinary tract infections In women, menstrual cramps, fibroids, ovarian cysts, pelvic inflammatory disease, or endometriosis Inflammation or infection of the intestines, including Crohn's disease and ulcerative colitis Irritable bowel syndrome Diagnosing the cause of abdominal pain Your healthcare provider will give you a physical exam help find the cause of your pain. If needed,you will have tests. Belly pain has many possible causes. So it can be hard to find the reason for your pain. Giving details about your pain can help. Tell your provider where and when you feel the pain, and what makes it better or worse. Also let your provider know if you have other symptoms such as: Fever Tiredness Upset stomach (nausea) Vomiting Changes in bathroom habits Blood in the stool or black, tarry stool Weight loss that you can't explain (involuntary weight loss?) Also report any family history of stomach or intestinal problems, or cancers. Tell your provider about all your alcohol use and drug use. Tell your provider about all medicines you use, including herbs, vitamins, and supplements. Treating abdominal pain Some causes of pain need emergency medical treatment right away. These include appendicitis or a bowel blockage. Other problems can be treated with rest, fluids, or medicines. Your healthcare provider can give you specific instructions for treatment or self-care based on what is causing your pain. If you have vomiting or diarrhea, sip water or other clear fluids. When you are ready to eat solid foods again, start with small amounts of [id number], low- fat foods. These include apple sauce, toast, or crackers. When to get medical care Call 911 or go to the hospital right away if you: Can t pass stool and are vomiting Are vomiting blood or have bloody diarrhea or black, tarry diarrhea Have chest, neck, or shoulder pain Feel like you might pass out Have pain in your shoulder blades with nausea Have sudden, severe belly pain Have new, severe pain unlike any you have felt before Have a belly that is rigid, hard, and hurts to touch Call your healthcare provider if you have: Pain for more than 5 days Bloating for more than 2 days Diarrhea for more than 5 days A fever of 100.4 F (38 C) or higher, or as directed by your healthcare provider Pain that gets worse Weight loss for no reason Continued lack of appetite Blood in your stool How to prevent abdominal pain Here are some tips to help prevent abdominal pain: Eat smaller amounts of food at each meal. Don't eat greasy, fried, or other high-fat foods. Don't eat foods that give you gas. Exercise regularly. Drink plenty of fluids. To help prevent GERD symptoms: Quit smoking. Reduce alcohol and foods that increase stomach acid. Don't use aspirin or [id number]-[id number] pain and fever medicines, if possible. This includes nonsteroidal anti-inflammatory drugs (NSAIDs). Lose excess weight. Finish eating at least 2 hours before you go to bed or lie down. Raise the head of your bed. [id number] [employer]. [address] [place] [address]. All rights reserved. This information is not intended as a substitute for professional medical care. Always follow yourhealthcare professional's instructions. Follow Up Care 07/30/2025 19:55:42 With:[facility] Address: [facility] [place] [address]- When:2-4 days [facility] 10-04-2025 Note Discharge Instructions Thank you for allowing [facility] to assist you with your healthcare needs. The following is importantdischarge information regarding your hospital visit. Diagnosis from Today's Visit Pain in the abdomen What to Do Next Instructions from Your Care Team No qualifying data available. Post Acute Orders No qualifying data available. You Need to Schedule the Following Appointments Follow Up with [facility] When:Within 2-4 days Where:[place] [address]- Allergies NKA Medications Please ask your primary doctor or pharmacist before taking any other medication not listed, including over the counter drugs, herbal medications, vitamins and or supplements as they may interact withyour home medications. What How Much When Why Instructions Last Dose New sucralfate (sucralfate 1 g oral tablet) 1 tab(s) by mouth Four (4) times a day Duration: 7 Days take on an empty stomach 1hr before or [facility] Prescription Unchanged acetaminophen-hydrocodone (Arnold 325- 5 mg oral tablet) 1 tab(s) by mouth Every 6 hours as needed for as needed for pain Gastritis Duration: 3 Days Unchanged dicyclomine (Bentyl use dicyclomine ) 20 Milligram by mouth Four (4) times a day Unchanged famotidine (Pepcid 20 mg oral tablet) 1 tab(s) by mouth Two (2) times a day Unchanged lansoprazole (Prevacid 15 mg oral delayed release capsule) 1 cap by mouth Once a day Unchanged ondansetron (ondansetron 4 mg oral tablet, disintegrating) 1 tab(s) by mouth Every 6 hours as needed for Nausea/Vomiting Duration: 4 Days Please take this list to your next doctor s visit. Bring all medications you take, including over the counter medications, herbals and other supplements with you to your doctor s visit. Patients and families are reminded to discard old lists and to update any records with all medication providers or retail pharmacies. Education Materials Gastritis (Adult) Gastritis is inflammation and irritation of the stomach lining. You can have it for a short time (acute) or be long lasting (chronic). Infection with bacteria called H pylori most often causes gastritis. More than a third of people in the [place] have these bacteria in their bodies. In many cases, H pylori causes no problems or symptoms. In some people, though, the infection irritates the stomach lining and causes gastritis. H. pylori may be diagnosed through blood, stool, or breath tests, we well as through biopsy during an endoscopy. Other causes of stomach irritation include drinking alcohol, smoking or chewing tobacco, or taking pain-relieving medicines called NSAIDs (such as aspirin or ibuprofen). Certain drugs (such as cocaine) and immune conditions can also cause gastritis. Symptoms of gastritis can include: Belly pain or bloating Feeling full quickly Loss of appetite Nausea or vomiting Vomiting blood or having black stools Feeling more tired than usual An inflamed and irritated stomach lining is more likely to develop a sore called an ulcer. To help prevent this, gastritis should be treated. Home care If needed, our healthcare provider may prescribe medicines. If you have H pylori infection, treating it will likely relieve your symptoms. Other changes can help reduce stomach irritation and help itheal. If you have been prescribed medicines for H pylori infection, take them as directed. Take all of the medicine until it is finished or your healthcare provider tells you to stop, even if you feel better. Your healthcare provider may advise you not to take NSAIDs. If you take daily aspirin for your heart or other medical reasons, do not stop without talking to your healthcare provider first. Don't drink alcohol. Stop smoking. Smoking can irritate the stomach and delay healing. As much as possible, stay away from second hand smoke. Follow-up care Follow up with your healthcare provider, or as advised by our staff. You may need testing to check for inflammation or an ulcer. When to seek medical advice Call your healthcare provider for any of the following: Stomach pain that gets worse or moves to the lower right belly (appendix area) Chest pain that appears or gets worse, or spreads to the back, neck, shoulder, or arm Frequent vomiting (can t keep down liquids) Blood in the stool or vomit (red or black in color) Feeling weak or dizzy Shortness of breath Unexplained weight loss Fever of 100.4 F (38 C) or higher, or as directed by your healthcare provider [id number] [employer]. [address] [place], [place] [id number]. All rights reserved. This information is not intended as a substitute for professional medical care. Always follow yourhealthcare professional's instructions. Abdominal Pain Abdominal pain is pain in the stomach or belly area. Everyone has this pain from time to time. In many cases it goes away on its own. But abdominal pain can sometimes be due to a serious problem, such as appendicitis. So it s important to know when to get help. Causes of abdominal pain There are many possible causes of abdominal pain. Common causes in adults include: Constipation, diarrhea, or gas Stomach acid flowing back up into the esophagus (acid reflux or heartburn) Severe acid reflux, called GERD (gastroesophageal reflux disease) A sore in the lining of the stomach or small intestine (peptic ulcer) Inflammation of the gallbladder, liver, or pancreas Gallstones or kidney stones Appendicitis Intestinal blockage An internal organ pushing through a muscle or other tissue (hernia) Urinary tract infections In women, menstrual cramps, fibroids, ovarian cysts, pelvic inflammatory disease, or endometriosis Inflammation or infection of the intestines, including Crohn's disease and ulcerative colitis Irritable bowel syndrome Diagnosing the cause of abdominal pain Your healthcare provider will give you a physical exam help find the cause of your pain. If needed,you will have tests. Belly pain has many possible causes. So it can be hard to find the reason for your pain. Giving details about your pain can help. Tell your provider where and when you feel the pain, and what makes it better or worse. Also let your provider know if you have other symptoms such as: Fever Tiredness Upset stomach (nausea) Vomiting Changes in bathroom habits Blood in the stool or black, tarry stool Weight loss that you can't explain (involuntary weight loss?) Also report any family history of stomach or intestinal problems, or cancers. Tell your provider about all your alcohol use and drug use. Tell your provider about all medicines you use, including herbs, vitamins, and supplements. Treating abdominal pain Some causes of pain need emergency medical treatment right away. These include appendicitis or a bowel blockage. Other problems can be treated with rest, fluids, or medicines. Your healthcare provider can give you specific instructions for treatment or self-care based on what is causing your pain. If you have vomiting or diarrhea, sip water or other clear fluids. When you are ready to eat solid foods again, start with small amounts of izlq-ll-orspnl, low- fat foods. These include apple sauce, toast, or crackers. When to get medical care Call 911 or go to the hospital right away if you: Can t pass stool and are vomiting Are vomiting blood or have bloody diarrhea or black, tarry diarrhea Have chest, neck, or shoulder pain Feel like you might pass out Have pain in your shoulder blades with nausea Have sudden, severe belly pain Have new, severe pain unlike any you have felt before Have a belly that is rigid, hard, and hurts to touch Call your healthcare provider if you have: Pain for more than 5 days Bloating for more than 2 days Diarrhea for more than 5 days A fever of 100.4 F (38 C) or higher, or as directed by your healthcare provider Pain that gets worse Weight loss for no reason Continued lack of appetite Blood in your stool How to prevent abdominal pain Here are some tips to help prevent abdominal pain: Eat smaller amounts of food at each meal. Don't eat greasy, fried, or other high-fat foods. Don't eat foods that give you gas. Exercise regularly. Drink plenty of fluids. To help prevent GERD symptoms: Quit smoking. Reduce alcohol and foods that increase stomach acid. Don't use aspirin or rkjr-oiv-niatbgu pain and fever medicines, if possible. This includes nonsteroidal anti-inflammatory drugs (NSAIDs). Lose excess weight. Finish eating at least 2 hours before you go to bed or lie down. Raise the head of your bed. [id number] [employer]. [address] [place] [address]. All rights reserved. This information is not intended as a substitute for professional medical care. Always follow yourhealthcare professional's instructions. Additional Information VACCINATE! IT SAVES LIVES! Members of the community who have not yet received the COVID-19 vaccine and would like to receive it can visit one of [facility] vaccine clinics. There are many vaccine clinic locations within the [facility]. For locations and available times, please visit [email or web address].[email or web address]/. It is important to note that some COVID mobile vaccine clinics are held outdoors and may be canceled in rainy or stormy conditions. To learn more about pediatric vaccinations (ages 5-11), we invite you to visit the [facility] webpage. [email or web address].[email or web address]/pages/[email or web address]-Xhvaz-Shrvxsrwejv-Ksayjzgwya-[email or web address]-Jsy stions.htmlTo learn more about the COVID-19 vaccine, we invite you to visit the CDC website for a list of frequently asked questions. https://www.cdc.gov/coronavirus/2019-ncov/vaccines/faq.html [facility] Access Instructions: Stay connected with your healthcare team and access your personal medical information anytime with the [facility] Patient Portal. If you would like a full copy of your medical records please contact the [facility] Medical Records Department Saturday through Saturday between 8a.m. and 4:30p.m. Please follow the directions below to access the portal: 1.Access the email account you provided upon registration to the [facility].2.Look for an invitation email from [facility].3.Open the email and access the invitation link: Accept Invitation to Join The Wellness Team4.Fill in the required argueta to create your account. To access your account, visit [employer]/enStageharkeri or scan the [employer] code above. Click the bluebutton labeled "Access Patient Portal" and then log in with the username and password that you created in the steps above. You can then view a summary of results, a summary of your visits, and the ability to download your summaries to your computer or send the information securely to a physician. Remember that your healthcare information is confidential, so carefully consider who you will allow to register on the Join The Wellness Team Patient Portal for access to your information. You can also access the [facility] The Wellness Team Patient Portal on the [employer]. Simply click on "Health Records" under "Health Data" and then click on the [employer] logo. HOW TO SAFELY DISPOSE OF PRESCRIPTION MEDICATIONS Please use one of the following methods to safely dispose of your unused medications. 1.Use a drug disposal kit: the drug disposal pouch allows you to safely discard your old and unuseddrugs. Ask your nurse to give you one when you are discharged.2.Visit a local take-back location: Many local pharmacies and police departments have programs that collect old and unwanted prescriptiondrugs. Call your local pharmacy or go to http://C4Robo.Streyner/3H0Ek0b to find one close to you.3.Make use of household items: Use cat litter or old coffee grounds to dispose medications if other options arenot available. Mix your drugs with these household products, seal them in an airtight container andthrow it into the garbage. Call [facility]: [phone] to be sure your drugs can be disposed of in this way. Some medicines may require a different approach.4.Never flush your medications down the toilet. IF YOU HAVE BEEN PRESCRIBED AN OPIOIDS FOR PAIN If you have been prescribed an opioid (such as hydrocodone, oxycodone or morphine), it is critical to understand the possible side effects and risks of opioid pain medications. Even when taken as directed, opioids can have several side effects including: Tolerance, meaning you might need to take more of a medication for the same pain relief. Nausea, vomiting and/or constipation. Sleepiness, dizziness, dry mouth, confusion, depression or itching. Physical dependence, meaning you have withdrawal symptoms when a medication is stopped ? this can develop within a few days. KNOW YOUR RESPONSIBILITIES It is important to know exactly how much and how often to take the opioid pain medications you are prescribed. Never take opioids in higher amounts or more often than prescribed. Do not combine opioids with alcohol or other drugs that cause drowsiness, such as benzodiazepines, also known as benzos,including diazepam and alprazolam, muscle relaxants or sleep aids. Never sell or share prescriptionopioids. This is illegal. Store opioids in a secure place and out of reach of others (including children, family, friends and visitors). The last page(s) of this document has been signed and retained as a CHART COPY Signatures Patient Education Materials Gastritis (Adult) Abdominal Pain Medication Leaflets My discharge plan and instructions have been reviewed and explained to me and I,GEORGINA WEATHERS understand my current condition and have read and understand these discharge instructions. I have received a written copy of the plan/instructions. If I have questions, I am aware that I should contact my doctor. 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 Multiplanar reformatted images are provided for review. MIP images are provided for review. Automated exposure control, iterative reconstruction, and/or weight based adjustment of the mA/kV was utilized to reduce the radiation dose to as low as reasonably achievable.07/30/2025 10:21 pm COMPARISON: Chest x-ray 07/29/2025 HISTORY: ORDERING SYSTEM PROVIDED HISTORY: Reason for Exam: chest pain; suspect PE FINDINGS: HEART AND VESSELS: No pulmonary arterial filling defect is evident on this study. No pericardial effusion. Normal caliber great vessels. LUNGS/PLEURA: Patent tracheobronchial tree. No consolidation, effusion, or pneumothorax. LYMPH: No mediastinal, axillary, or supraclavicular adenopathy. SOFT TISSUE/BONES: Mild bilateral gynecomastia. No acute fracture. UPPER ABDOMEN: No acute finding on the limited upper abdominal images on this study. Please see CT abdomen pelvis from 07/29/2025. IMPRESSION: No evidence of acute pulmonary embolism or other acute process in the chest. I have personally reviewed the images of this examination and agree with the resident's findings and interpretation. Interpreted by: Nba Baker Preliminary Report By: Darwin Mackay Electronically signed By Nba Baker Dictated Date: 07/30/2025 11:09:54 PM Prelim Date: 07/30/2025 11:14:08 PM Sign Date: 07/30/2025 11:31:44 PM Ordering Provider: DELLA VELASQUEZ [facility]10-03-2025 Note* Exam Date Time Procedure Performing Provider Status 07/30/25 9:46 PM EKG [ED AO] - CV DELLA VELASQUEZ DO; (Verified) ECG Final Report Sinus rhythm ST elev, probable normal early repol pattern Electronic Signature: DELLA VELASQUEZ DO 07/30/2025 21:56:46 [facility]10-02-2025 Hospital Discharge instructions Patient Education 07/29/2025 18:43:41 Gastritis (Adult) Gastritis (Adult) Gastritis is inflammation and irritation of the stomach lining. You can have it for a short time (acute) or be long lasting (chronic). Infection with bacteria called H pylori most often causes gastritis. More than a third of people in the have these bacteria in their bodies. In many cases, H pylori causes no problems or symptoms. In some people, though, the infection irritates the stomach lining and causes gastritis. H. pylori may be diagnosed through blood, stool, or breath tests, we well as through biopsy during an endoscopy. Other causes of stomach irritation include drinking alcohol, smoking or chewing tobacco, or taking pain-relieving medicines called NSAIDs (such as aspirin or ibuprofen). Certain drugs (such as cocaine) and immune conditions can also cause gastritis. Symptoms of gastritis can include: Belly pain or bloating Feeling full quickly Loss of appetite Nausea or vomiting Vomiting blood or having black stools Feeling more tired than usual An inflamed and irritated stomach lining is more likely to develop a sore called an ulcer. To help prevent this, gastritis should be treated. Home care If needed, our healthcare provider may prescribe medicines. If you have H pylori infection, treating it will likely relieve your symptoms. Other changes can help reduce stomach irritation and help itheal. If you have been prescribed medicines for H pylori infection, take them as directed. Take all of the medicine until it is finished or your healthcare provider tells you to stop, even if you feel better. Your healthcare provider may advise you not to take NSAIDs. If you take daily aspirin for your heart or other medical reasons, do not stop without talking to your healthcare provider first. Don't drink alcohol. Stop smoking. Smoking can irritate the stomach and delay healing. As much as possible, stay away from second hand smoke. Follow-up care Follow up with your healthcare provider, or as advised by our staff. You may need testing to check for inflammation or an ulcer. When to seek medical advice Call your healthcare provider for any of the following: Stomach pain that gets worse or moves to the lower right belly (appendix area) Chest pain that appears or gets worse, or spreads to the back, neck, shoulder, or arm Frequent vomiting (can t keep down liquids) Blood in the stool or vomit (red or black in color) Feeling weak or dizzy Shortness of breath Unexplained weight loss Fever of 100.4 F (38 C) or higher, or as directed by your healthcare provider [id number] [employer]. [address] [place] [address], [place] [address]. All rights reserved. This information is not intended as a substitute for professional medical care. Always follow yourhealthcare professional's instructions. 07/29/2025 18:43:38 Treating Gastritis Treating Gastritis Take your medicines as directed, even if your stomach pain goes away. A medical evaluation will be done to find out the cause of your symptoms. The evaluation may include your health history, a physical exam, and some tests. Once your evaluation is done, treatment can begin. It may include taking certain medicines and making some lifestyle changes. Follow your healthcare provider s advice. Taking medicines Your healthcare providers may prescribe some medicines to neutralize or reduce excess stomach acids. If tests show that H. pylori are in your stomach lining, antibiotics may be prescribed. H.pylori are a type of bacteria that can cause gastritis. Avoiding certain things Be sure to avoid: Aspirin. Avoid taking aspirin and other anti-inflammatory medicines, such as ibuprofen. They can irritate your stomach lining. Also, check with your healthcare provider before taking or stopping any medicines. Spicy foods and caffeine. Stay away from foods prepared with spices, especially black pepper. Caffeine can also make your symptoms worse. So, avoid coffee, tea, cola drinks, and chocolate. Be sure totell your healthcare provider about any other foods or liquids that bother your stomach. Tobacco and alcohol. Don t use tobacco or drink alcohol. Tobacco and alcohol can increase stomach acids and worsen your gastritis symptoms. Reducing your stress Stress may make your gastritis symptoms worse. Whenever you can, reduce the stress in your life. One way to do this is to start an exercise program talk to your healthcare provider first. Also, try to get enough sleep, at least 8 hours a night. [id number] [employer]. [address] [place] [address], [place] [address]. All rights reserved. This information is not intended as a substitute for professional medical care. Always follow yourhealthcare professional's instructions. Follow Up Care 07/29/2025 16:22:30 With:MARIA FERNANDA FERNANDES MD Address: [address] [id number] [phone] When:2-4 days [facility] 10-02-2025 Emergency department Discharge summary Discharge Instructions Thank you for allowing [facility] to assist you with your healthcare needs. The following is importantdischarge information regarding your hospital visit. Diagnosis from Today's Visit Gastritis What to Do Next Instructions from Your Care Team No qualifying data available. Post Acute Orders No qualifying data available. You Need to Schedule the Following Appointments Follow Up with MARIA FERNANDA FERNANDES MD When:Within 2-4 days Where:[facility] [address] [id number]- [phone] Allergies NKA Medications Please ask your primary doctor or pharmacist before taking any other medication not listed, including over the counter drugs, herbal medications, vitamins and or supplements as they may interact withyour home medications. What How Much When Why Instructions Last Dose New acetaminophen-hydrocodone (Arnold 325- 5 mg oral tablet) 1 tab(s) by mouth Every 6 hours as needed for as needed for pain Gastritis Duration: 3 Days Printed Prescription New famotidine (Pepcid 20 mg oral tablet) 1 tab(s) by mouth Two (2) times a day Printed Prescription New ondansetron (ondansetron 4 mg oral tablet, disintegrating) 1 tab(s) by mouth Every 6 hours as needed for Nausea/Vomiting Duration: 4 Days Printed Prescription Unchanged dicyclomine (Bentyl use dicyclomine ) 20 Milligram by mouth Four (4) times a day Unchanged lansoprazole (Prevacid 15 mg oral delayed release capsule) 1 cap by mouth Once a day Please take this list to your next doctor s visit. Bring all medications you take, including over the counter medications, herbals and other supplements with you to your doctor s visit. Patients and families are reminded to discard old lists and to update any records with all medication providers or retail pharmacies. Education Materials Gastritis (Adult) Gastritis is inflammation and irritation of the stomach lining. You can have it for a short time (acute) or be long lasting (chronic). Infection with bacteria called H pylori most often causes gastritis. More than a third of people in the [place] have these bacteria in their bodies. In many cases, H pylori causes no problems or symptoms. In some people, though, the infection irritates the stomach lining and causes gastritis. H. pylori may be diagnosed through blood, stool, or breath tests, we well as through biopsy during an endoscopy. Other causes of stomach irritation include drinking alcohol, smoking or chewing tobacco, or taking pain-relieving medicines called NSAIDs (such as aspirin or ibuprofen). Certain drugs (such as cocaine) and immune conditions can also cause gastritis. Symptoms of gastritis can include: Belly pain or bloating Feeling full quickly Loss of appetite Nausea or vomiting Vomiting blood or having black stools Feeling more tired than usual An inflamed and irritated stomach lining is more likely to develop a sore called an ulcer. To help prevent this, gastritis should be treated. Home care If needed, our healthcare provider may prescribe medicines. If you have H pylori infection, treating it will likely relieve your symptoms. Other changes can help reduce stomach irritation and help itheal. If you have been prescribed medicines for H pylori infection, take them as directed. Take all of the medicine until it is finished or your healthcare provider tells you to stop, even if you feel better. Your healthcare provider may advise you not to take NSAIDs. If you take daily aspirin for your heart or other medical reasons, do not stop without talking to your healthcare provider first. Don't drink alcohol. Stop smoking. Smoking can irritate the stomach and delay healing. As much as possible, stay away from second hand smoke. Follow-up care Follow up with your healthcare provider, or as advised by our staff. You may need testing to check for inflammation or an ulcer. When to seek medical advice Call your healthcare provider for any of the following: Stomach pain that gets worse or moves to the lower right belly (appendix area) Chest pain that appears or gets worse, or spreads to the back, neck, shoulder, or arm Frequent vomiting (can t keep down liquids) Blood in the stool or vomit (red or black in color) Feeling weak or dizzy Shortness of breath Unexplained weight loss Fever of 100.4 F (38 C) or higher, or as directed by your healthcare provider [id number] [employer]. [address] [place] [address], [place] [id number]. All rights reserved. This information is not intended as a substitute for professional medical care. Always follow yourhealthcare professional's instructions. Treating Gastritis Take your medicines as directed, even if your stomach pain goes away. A medical evaluation will be done to find out the cause of your symptoms. The evaluation may include your health history, a physical exam, and some tests. Once your evaluation is done, treatment can begin. It may include taking certain medicines and making some lifestyle changes. Follow your healthcare provider s advice. Taking medicines Your healthcare providers may prescribe some medicines to neutralize or reduce excess stomach acids. If tests show that H. pylori are in your stomach lining, antibiotics may be prescribed. H.pylori are a type of bacteria that can cause gastritis. Avoiding certain things Be sure to avoid: Aspirin. Avoid taking aspirin and other anti-inflammatory medicines, such as ibuprofen. They can irritate your stomach lining. Also, check with your healthcare provider before taking or stopping any medicines. Spicy foods and caffeine. Stay away from foods prepared with spices, especially black pepper. Caffeine can also make your symptoms worse. So, avoid coffee, tea, cola drinks, and chocolate. Be sure totell your healthcare provider about any other foods or liquids that bother your stomach. Tobacco and alcohol. Don t use tobacco or drink alcohol. Tobacco and alcohol can increase stomach acids and worsen your gastritis symptoms. Reducing your stress Stress may make your gastritis symptoms worse. Whenever you can, reduce the stress in your life. One way to do this is to start an exercise program talk to your healthcare provider first. Also, try to get enough sleep, at least 8 hours a night. [phone] [employer]. [address] [place] [address], [place] [address]. All rights reserved. This information is not intended as a substitute for professional medical care. Always follow yourhealthcare professional's instructions. Additional Information VACCINATE! IT SAVES LIVES! Members of the community who have not yet received the COVID-19 vaccine and would like to receive it can visit one of [facility] vaccine clinics. There are many vaccine clinic locations within the [facility]. For locations and available times, please visit [email or web address] It is important to note that some COVID mobile vaccine clinics are held outdoors and may be canceled in rainy or stormy conditions. To learn more about pediatric vaccinations (ages 5-11), we invite you to visit the [facility] webpage. [email or web address] learn more about the COVID-19 vaccine, we invite you to visit the CDC website for a list of frequently asked questions. https://www.cdc.gov/coronavirus/2019-ncov/vaccines/faq.html [facility] Patient Portal Access Instructions: Stay connected with your healthcare team and access your personal medical information anytime with the [facility] Patient Portal. If you would like a full copy of your medical records please contact the [facility] Medical Records Department Saturday through Saturday between 8a.m. and 4:30p.m. Please follow the directions below to access the portal: 1.Access the email account you provided upon registration to the hospital.2.Look for an invitation email from [facility].3.Open the email and access the invitation link: Accept Invitation to [facility].Fill in the required argueta to create your account. To access your account, visit [email or web address] or scan the QR code above. Click the bluebutton labeled "Access Patient Portal" and then log in with the username and password that you created in the steps above. You can then view a summary of results, a summary of your visits, and the ability to download your summaries to your computer or send the information securely to a physician. Re member that your healthcare information is confidential, so carefully consider who you will allow to register on the [facility] Patient Portal for access to your information. You can also access the [facility] Patient Portal on the [employer]. Simply click on "Health Records" under "Health Data" and then click on the Kat logo. HOW TO SAFELY DISPOSE OF PRESCRIPTION MEDICATIONS Please use one of the following methods to safely dispose of your unused medications. 1.Use a drug disposal kit: the drug disposal pouch allows you to safely discard your old and unuseddrugs. Ask your nurse to give you one when you are discharged.2.Visit a local take-back location: Many local pharmacies and police departments have programs that collect old and unwanted prescriptiondrugs. Call your local pharmacy or go to http://[email or web address].Streyner/[email or web address] to find one close to you.3.Make use of household items: Use cat litter or old coffee grounds to dispose medications if other options arenot available. Mix your drugs with these household products, seal them in an airtight container andthrow it into the garbage. Call [facility]: [phone] to be sure your drugs can be disposed of in this way. Some medicines may require a different approach.4.Never flush your medications down the toilet. IF YOU HAVE BEEN PRESCRIBED AN OPIOIDS FOR PAIN If you have been prescribed an opioid (such as hydrocodone, oxycodone or morphine), it is critical to understand the possible side effects and risks of opioid pain medications. Even when taken as directed, opioids can have several side effects including: Tolerance, meaning you might need to take more of a medication for the same pain relief. Nausea, vomiting and/or constipation. Sleepiness, dizziness, dry mouth, confusion, depression or itching. Physical dependence, meaning you have withdrawal symptoms when a medication is stopped ? this can develop within a few days. KNOW YOUR RESPONSIBILITIES It is important to know exactly how much and how often to take the opioid pain medications you are prescribed. Never take opioids in higher amounts or more often than prescribed. Do not combine opioids with alcohol or other drugs that cause drowsiness, such as benzodiazepines, also known as benzos,including diazepam and alprazolam, muscle relaxants or sleep aids. Never sell or share prescriptionopioids. This is illegal. Store opioids in a secure place and out of reach of others (including children, family, friends and visitors). The last page(s) of this document has been signed and retained as a CHART COPY Signatures Patient Education Materials Gastritis (Adult) Treating Gastritis Medication Leaflets My discharge plan and instructions have been reviewed and explained to me and ISARAHY AARON M understand my current condition and have read and understand these discharge instructions. I have received a written copy of the plan/instructions. If I have questions, I am aware that I should contact my doctor. Patient/Twine Winder Signature: Date/Time: Relationship to Patient: Witness Name/Signature: Date/Time: [facility]10[facility] Note* Exam Date Time Procedure Performing Provider Status 07/29/25 5:35 PM XR Chest 1 View MAURILIO CASILLAS MD; [facility] (Verified) [id number] ORIGINAL EXAMINATION: ONE XRAY VIEW OF THE CHEST 07/29/2025 5:35 pm COMPARISON: None. HISTORY: ORDERING SYSTEM PROVIDED HISTORY: Reason for Exam: chest pain FINDINGS: There is no infiltrate, consolidation, or effusion. Cardiomediastinal silhouette is normal in size. There is no pulmonary vascular congestion. There is no pneumothorax. Osseous structures are grossly within normal limits. IMPRESSION: 1. There is no infiltrate, consolidation, or effusion. Interpreted by: Maurilio Casillas Preliminary Report By: Maurilio Casillas Electronically signed By Maurilio Casillas Dictated Date: 07/29/2025 6:05:45 PM Prelim Date: 07/29/2025 6:08:51 PM Sign Date: 07/29/2025 6:08:51 PM Ordering Provider: PATRICIA PHILIPPE [facility]10-02-2025 Note* Exam Date Time Procedure Performing Provider Status 07/29/25 5:[address] Abd/Pelvis w/ IV Contrast Only MAURILIO CASILLAS MD; Auth (Verified) [id number] ORIGINAL EXAMINATION: CT OF THE ABDOMEN AND PELVIS WITH CONTRAST 07/29/2025 5:35 pm TECHNIQUE: CT of the abdomen and pelvis was performed with the administration of intravenous contrast. Multiplanar reformatted images are provided for review. Automated exposure control, iterative reconstruction, and/or weight based adjustment of the mA/kV was utilized to reduce the radiation dose to as low as reasonably achievable. COMPARISON: CT abdomen-pelvis 07/28/2025 HISTORY: ORDERING SYSTEM PROVIDED HISTORY: Reason for Exam: mid abdomen pain x2 days, N+V Abdominal pain, acute, nonlocalized FINDINGS: Lower Chest: Visualized lower thorax demonstrates no consolidation or pleural effusion. There is mild bibasilar atelectasis. Organs: The liver demonstrates no biliary duct dilatation or gross mass. There is diffuse hepatic periportal edema. The gallbladder demonstrates no calcified gallstones or gross wall thickening. The pancreas demonstrates no evidence of mass, ductal dilatation, or inflammatory process. Spleen is normal in size. Adrenal glands are normal in size. The kidneys enhance symmetrically without evidence of hydronephrosis. Ureters are normal in caliber bilaterally. GI/Bowel: There is mild wall thickening of the gastric antrum again noted. Small bowel and colon are normal in caliber. Appendix is normal in caliber without gross wall thickening or inflammatory change. Pelvis: Urinary bladder is within normal limits. No acute abnormality of the prostate. Seminal vesicles are grossly normal in morphology. Peritoneum/Retroperitoneum: Aorta is normal in caliber without acute abnormality. Bones/Soft Tissues: Osseous structures are intact. IMPRESSION: 1. Mild wall thickening of the gastric antrum again noted. This may reflect gastritis. 2. Diffuse hepatic periportal edema. This is nonspecific and can be seen in the setting of acute hepatitis, passive hepatic congestion, or other etiologies. Interpreted by: Maurilio Casillas Preliminary Report By: Maurilio Casillas Electronically signed By Maurilio Casillas Dictated Date: 07/29/2025 6:09:07 PM Prelim Date: 07/29/2025 6:29:22 PM Sign Date: 07/29/2025 6:29:22 PM Ordering Provider: PATRICIA PHILIPPE [facility]10-[facility] Note* Exam Date Time Procedure Performing Provider Status 07/29/25 5:00 PM EKG [ED AOH] - CV PATRICIA PHILIPPE DO ; Auth (Verified) ECG Final Report Sinus rhythm BORDERLINE ECG Electronic Signature: PATRICIA PHILIPPE DO 07/29/2025 17:04:59 [facility]10[facility] Hospital Discharge instructions Patient Education 07/29/2025 00:40:46 Gastritis (Adult) Gastritis (Adult) Gastritis is inflammation and irritation of the stomach lining. You can have it for a short time (acute) or be long lasting (chronic). Infection with bacteria called H pylori most often causes gastritis. More than a third of people in the have these bacteria in their bodies. In many cases, H pylori causes no problems or symptoms. In some people, though, the infection irritates the stomach lining and causes gastritis. H. pylori may be diagnosed through blood, stool, or breath tests, we well as through biopsy during an endoscopy. Other causes of stomach irritation include drinking alcohol, smoking or chewing tobacco, or taking pain-relieving medicines called NSAIDs (such as aspirin or ibuprofen). Certain drugs (such as cocaine) and immune conditions can also cause gastritis. Symptoms of gastritis can include: Belly pain or bloating Feeling full quickly Loss of appetite Nausea or vomiting Vomiting blood or having black stools Feeling more tired than usual An inflamed and irritated stomach lining is more likely to develop a sore called an ulcer. To help prevent this, gastritis should be treated. Home care If needed, our healthcare provider may prescribe medicines. If you have H pylori infection, treating it will likely relieve your symptoms. Other changes can help reduce stomach irritation and help itheal. If you have been prescribed medicines for H pylori infection, take them as directed. Take all of the medicine until it is finished or your healthcare provider tells you to stop, even if you feel better. Your healthcare provider may advise you not to take NSAIDs. If you take daily aspirin for your heart or other medical reasons, do not stop without talking to your healthcare provider first. Don't drink alcohol. Stop smoking. Smoking can irritate the stomach and delay healing. As much as possible, stay away from second hand smoke. Follow-up care Follow up with your healthcare provider, or as advised by our staff. You may need testing to check for inflammation or an ulcer. When to seek medical advice Call your healthcare provider for any of the following: Stomach pain that gets worse or moves to the lower right belly (appendix area) Chest pain that appears or gets worse, or spreads to the back, neck, shoulder, or arm Frequent vomiting (can t keep down liquids) Blood in the stool or vomit (red or black in color) Feeling weak or dizzy Shortness of breath Unexplained weight loss Fever of 100.4 F (38 C) or higher, or as directed by your healthcare provider [id number] [employer]. [address] [place] [address]. All rights reserved. This information is not intended as a substitute for professional medical care. Always follow yourhealthcare professional's instructions. Follow Up Care 07/28/2025 21:07:32 With:[facility] Address: [address] [place], [place] [address] [place] [address] When:2-4 days [facility] 10-02-2025 Note Discharge Instructions Thank you for allowing [facility] to assist you with your healthcare needs. The following is importantdischarge information regarding your hospital visit. Diagnosis from Today's Visit Gastritis What to Do Next Instructions from Your Care Team No qualifying data available. Post Acute Orders No qualifying data available. You Need to Schedule the Following Appointments Follow Up with [facility] When:Within 2-4 days Where:[address] [place], [place] [address] [place] [address]- Allergies NKA Medications Please ask your primary doctor or pharmacist before taking any other medication not listed, including over the counter drugs, herbal medications, vitamins and or supplements as they may interact withyour home medications. What How Much When Instructions Last Dose New dicyclomine (Bentyl use dicyclomine ) 20 Milligram by mouth Four (4) times a day Printed Prescription New lansoprazole (Prevacid 15 mg oral delayed release capsule) 1 cap by mouth Once a day Printed Prescription Please take this list to your next doctor s visit. Bring all medications you take, including over the counter medications, herbals and other supplements with you to your doctor s visit. Patients and families are reminded to discard old lists and to update any records with all medication providers or retail pharmacies. Education Materials Gastritis (Adult) Gastritis is inflammation and irritation of the stomach lining. You can have it for a short time (acute) or be long lasting (chronic). Infection with bacteria called H pylori most often causes gastritis. More than a third of people in the have these bacteria in their bodies. In many cases, H pylori causes no problems or symptoms. In some people, though, the infection irritates the stomach lining and causes gastritis. H. pylori may be diagnosed through blood, stool, or breath tests, we well as through biopsy during an endoscopy. Other causes of stomach irritation include drinking alcohol, smoking or chewing tobacco, or taking pain-relieving medicines called NSAIDs (such as aspirin or ibuprofen). Certain drugs (such as cocaine) and immune conditions can also cause gastritis. Symptoms of gastritis can include: Belly pain or bloating Feeling full quickly Loss of appetite Nausea or vomiting Vomiting blood or having black stools Feeling more tired than usual An inflamed and irritated stomach lining is more likely to develop a sore called an ulcer. To help prevent this, gastritis should be treated. Home care If needed, our healthcare provider may prescribe medicines. If you have H pylori infection, treating it will likely relieve your symptoms. Other changes can help reduce stomach irritation and help itheal. If you have been prescribed medicines for H pylori infection, take them as directed. Take all of the medicine until it is finished or your healthcare provider tells you to stop, even if you feel better. Your healthcare provider may advise you not to take NSAIDs. If you take daily aspirin for your heart or other medical reasons, do not stop without talking to your healthcare provider first. Don't drink alcohol. Stop smoking. Smoking can irritate the stomach and delay healing. As much as possible, stay away from second hand smoke. Follow-up care Follow up with your healthcare provider, or as advised by our staff. You may need testing to check for inflammation or an ulcer. When to seek medical advice Call your healthcare provider for any of the following: Stomach pain that gets worse or moves to the lower right belly (appendix area) Chest pain that appears or gets worse, or spreads to the back, neck, shoulder, or arm Frequent vomiting (can t keep down liquids) Blood in the stool or vomit (red or black in color) Feeling weak or dizzy Shortness of breath Unexplained weight loss Fever of 100.4 F (38 C) or higher, or as directed by your healthcare provider [phone] [employer]. [address] [place] [address]. All rights reserved. This information is not intended as a substitute for professional medical care. Always follow yourhealthcare professional's instructions. Additional Information VACCINATE! IT SAVES LIVES! Members of the community who have not yet received the COVID-19 vaccine and would like to receive it can visit one of [facility] vaccine clinics. There are many vaccine clinic locations within the [facility]. For locations and available times, please visit [email or web address]/. It is important to note that some COVID mobile vaccine clinics are held outdoors and may be canceled in rainy or stormy conditions. To learn more about pediatric vaccinations (ages 5-11), we invite you to visit the [facility] webpage. [email or web address]/[email or web address] learn more about the COVID-19 vaccine, we invite you to visit the CDC website for a list of frequently asked questions. https://www.cdc.gov/coronavirus/2019-ncov/vaccines/faq.html [facility] Patient Portal Access Instructions: Stay connected with your healthcare team and access your personal medical information anytime with the [facility] Patient Portal. If you would like a full copy of your medical records please contact the [facility] Medical Records Department Saturday through Saturday between 8a.m. and 4:30p.m. Please follow the directions below to access the portal: 1.Access the email account you provided upon registration to the hospital.2.Look for an invitation email from [facility].3.Open the email and access the invitation link: Accept Invitation to [facility]4.Fill in the required argueta to create your account. To access your account, visit [email or web address] or scan the [employer] code above. Click the bluebutton labeled "Access Patient Portal" and then log in with the username and password that you created in the steps above. You can then view a summary of results, a summary of your visits, and the ability to download your summaries to your computer or send the information securely to a physician. Re member that your healthcare information is confidential, so carefully consider who you will allow to register on the [facility] Patient Portal for access to your information. You can also access the [facility] Patient Portal on the [employer]. Simply click on "Health Records" under "Health Data" and then click on the Kat logo. HOW TO SAFELY DISPOSE OF PRESCRIPTION MEDICATIONS Please use one of the following methods to safely dispose of your unused medications. 1.Use a drug disposal kit: the drug disposal pouch allows you to safely discard your old and unuseddrugs. Ask your nurse to give you one when you are discharged.2.Visit a local take-back location: Many local pharmacies and police departments have programs that collect old and unwanted prescriptiondrugs. Call your local pharmacy or go to http://C4Robo.Streyner/3Z5Wq7w to find one close to you.3.Make use of household items: Use cat litter or old coffee grounds to dispose medications if other options arenot available. Mix your drugs with these household products, seal them in an airtight container andthrow it into the garbage. Call [facility]: [phone] to be sure your drugs can be disposed of in this way. Some medicines may require a different approach.4.Never flush your medications down the toilet. IF YOU HAVE BEEN PRESCRIBED AN OPIOIDS FOR PAIN If you have been prescribed an opioid (such as hydrocodone, oxycodone or morphine), it is critical to understand the possible side effects and risks of opioid pain medications. Even when taken as directed, opioids can have several side effects including: Tolerance, meaning you might need to take more of a medication for the same pain relief. Nausea, vomiting and/or constipation. Sleepiness, dizziness, dry mouth, confusion, depression or itching. Physical dependence, meaning you have withdrawal symptoms when a medication is stopped ? this can develop within a few days. KNOW YOUR RESPONSIBILITIES It is important to know exactly how much and how often to take the opioid pain medications you are prescribed. Never take opioids in higher amounts or more often than prescribed. Do not combine opioids with alcohol or other drugs that cause drowsiness, such as benzodiazepines, also known as benzos,including diazepam and alprazolam, muscle relaxants or sleep aids. Never sell or share prescriptionopioids. This is illegal. Store opioids in a secure place and out of reach of others (including children, family, friends and visitors). The last page(s) of this document has been signed and retained as a CHART COPY Signatures Patient Education Materials Gastritis (Adult) Medication Leaflets My discharge plan and instructions have been reviewed and explained to me and I,SARAHY GEORGINA M understand my current condition and have read and understand these discharge instructions. I have received a written copy of the plan/instructions. If I have questions, I am aware that I should contact my doctor. Patient/Twine Winder Signature: Date/Time: Relationship to Patient: Witness Name/Signature: Date/Time: [facility]10-01-2025 Note* Exam Date Time Procedure Performing Provider Status 07/28/25 11:[address] Abd/Pelvis w/ IV Contrast Only ANALIA JEFFERSON MD; Auth (Verified) [id number] ORIGINAL EXAMINATION: CT OF THE ABDOMEN AND PELVIS WITH EFYGYHAJ81/1/2025 11:48 pm TECHNIQUE: CT of the abdomen and pelvis was performed with the administration of intravenous contrast. Multiplanar reformatted images are provided for review. Automated exposure control, iterative reconstruction, and/or weight based adjustment of the mA/kV was utilized to reduce the radiation dose to as low as reasonably achievable. COMPARISON: None HISTORY: ORDERING SYSTEM PROVIDED HISTORY: Reason for Exam: Abdominal pain, acute, nonlocalized FINDINGS: Bones: No acute bony abnormality. Lower Thorax: Bilateral dependent atelectasis. There is no visible pleural or pericardial effusion. The heart is normal in size. Solid Organs: The liver, spleen, pancreas, gallbladder, and adrenal glands are unremarkable. Collecting System: The kidneys enhance symmetrically. No urolithiasis or hydronephrosis. Pelvis: The bladder is unremarkable. Pelvic phleboliths. The prostate demonstrates no acute abnormalities.. GI Tract: Mild prominence of the gastric wall without surrounding inflammatory changes. The small bowel demonstrates no acute abnormalities. The colon is unremarkable. The appendix is normal. Vasculature: The aorta is normal in caliber. Lymph Nodes, Mesentery, and Peritoneum: No lymphadenopathy is identified. No free intraperitoneal fluid or gas is identified. Superficial Soft Tissues: Unremarkable. IMPRESSION: Mild prominence of the gastric wall without surrounding inflammatory changes, nonspecific, however is favored to be related to under distension versus gastritis/peptic ulcer disease. Otherwise, no acute abnormality in the abdomen or pelvis. I have personally reviewed the images of this examination and agree with the resident's findings and interpretation. Interpreted by: Analia Jefferson MD Preliminary Report By: Wendi Sparks Electronically signed By Analia Jefferson MD Dictated Date: 07/29/2025 12:21:21 AM Prelim Date: 07/29/2025 12:28:58 AM Sign Date: 07/29/2025 12:45:37 AM Ordering Provider: ERROL MENJIVAR RP [facility]09-[facility]2025 Hospital Discharge instructions Patient Education 07/08/2025 09:38:33 Parts of the Throat and Neck Parts of the Throat and Neck The hard palate separates the nose from the mouth. The soft palate is the back of the roof of the mouth. The epiglottis keeps food and liquids out of the trachea when you swallow. The larynx (voice box) produces sound used for speaking. The eustachian tube is the tube that connects the throat to the ear. The nasopharynx is the area at the top of the throat behind the nose. The oropharynx is the area at the middle of the throat behind the mouth. The hypopharynx is the area at the lower part of the throat. The esophagus is the tube that carries food and liquids from the throat to the stomach. The trachea is the tube that carries air between the throat and the lungs. The lymph nodes are ramsey-shaped organs that help the body fight infections. [id number] [employer]. [address] [place] [address], [place] [address]. All rights reserved. This information is not intended as a substitute for professional medical care. Always follow yourhealthcare professional's instructions. 07/08/2025 09:38:31 Neck Sprain or Strain Neck Sprain or Strain A sudden force that causes turning or bending of the neck can cause sprain or strain. An example would be the force from a car accident. This can stretch or tear muscles called a strain. It can also stretch or tear ligaments called a sprain. Either of these can cause neck pain. Sometimes neck pain occurs after a simple awkward movement. In either case, muscle spasm is commonly present and contributes to the pain. Unless you had a forceful physical injury (for example, a car accident or fall), X-rays are often not ordered for the initial evaluation of neck pain. If pain continues and does not respond to medical treatment, X-rays and other tests may be done later. Home care You may feel more soreness and spasm the first few days after the injury. Rest until symptoms startto improve. When lying down, use a comfortable pillow or a rolled towel that supports the head and keeps the spine in a neutral position. The position of the head should not be tilted forward or backward. Apply an ice pack over the injured area for 15 to 20 minutes every 3 to 6 hours. Do this for the first 24 to 48 hours. You can make an ice pack by filling a plastic bag that seals at the top with icecubes and then wrapping it with a thin towel. After 48 hours, apply heat (warm shower or warm bath)for 15 to 20 minutes several times a day, or alternate ice and heat. You may use mvqw-ifa-auhlgfm pain medicine to control pain, unless another pain medicine was prescribed. If you have chronic liver or kidney disease or ever had a stomach ulcer or gastrointestinal bleeding, talk with your healthcare provider before using these medicines. If a soft cervical collar was prescribed, only ear it for periods of increased pain. It should not be worn for more than 3 hours a day, or for longer than 1 to 2 weeks. Follow-up care Follow up with your healthcare provider, or as directed. Physical therapy may be needed. Sometimes fractures don t show up on the first X-ray. Bruises and sprains can sometimes hurt as much as a fracture. These injuries can take time to heal completely. If your symptoms don t improve or they get worse, talk with your healthcare provider. You may need a repeat X-ray or other tests. If X-rays were taken, you will be told of any new findings that may affect your care. Call 911 Call 911 if you have: Neck swelling, difficulty or painful swallowing Trouble breathing Chest pain When to seek medical advice Call your healthcare provider right away if any of these occur: Pain becomes worse or spreads into your arms or legs Weakness or numbness in one or both arms or legs [phone] [employer]. [address] [place] [address]. All rights reserved. This information is not intended as a substitute for professional medical care. Always follow yourhealthcare professional's instructions. Follow Up Care 07/08/2025 09:11:42 With:SARA HU DO Address: [address] [place] [address] [place] [phone] When:3-5 days [facility] 09-11-2025 Note Discharge Instructions Thank you for allowing [facility] to assist you with your healthcare needs. The following is importantdischarge information regarding your hospital visit. What to Do Next Instructions from Your Care Team No qualifying data available. Post Acute Orders No qualifying data available. You Need to Schedule the Following Appointments Follow Up with SARA HU DO When:Within 3-5 days Where:[address] [place] [address] [place] [phone] Allergies NKA Medications Please ask your primary doctor or pharmacist before taking any other medication not listed, including over the counter drugs, herbal medications, vitamins and or supplements as they may interact withyour home medications. What How Much When Instructions Last Dose New cyclobenzaprine (Flexeril use cyclobenzaprine ) 10 Milligram by mouth Three (3) times a day Printed Prescription Please take this list to your next doctor s visit. Bring all medications you take, including over the counter medications, herbals and other supplements with you to your doctor s visit. Patients and families are reminded to discard old lists and to update any records with all medication providers or retail pharmacies. Medication Leaflets cyclobenzaprine (syjavan vincent) Amrix, Fexmid What is the most important information I should know about cyclobenzaprine? You should not use cyclobenzaprine if you have a thyroid disorder, heart block, congestive heart failure, a heart rhythm disorder, or you have recently had a heart attack. Do not use cyclobenzaprine if you have taken an MAO inhibitor in the past 14 days, such as isocarboxazid, linezolid, phenelzine, rasagiline, selegiline, or tranylcypromine. What is cyclobenzaprine? Cyclobenzaprine is a muscle relaxant. It works by blocking nerve impulses (or pain sensations) thatare sent to your brain. Cyclobenzaprine is used together with rest and physical therapy to relieve muscle spasms caused by painful conditions such as an injury. Cyclobenzaprine may also be used for purposes not listed in this medication guide. What should I discuss with my healthcare provider before taking cyclobenzaprine? You should not use cyclobenzaprine if you are allergic to it, or if you have: a thyroid disorder; heart block, heart rhythm disorder, congestive heart failure; or if you have recently had a heart attack. Cyclobenzaprine is not approved for use by anyone younger than 15 years old. Do not use cyclobenzaprine if you have taken an MAO inhibitor in the past 14 days. A dangerous druginteraction could occur. MAO inhibitors include isocarboxazid, linezolid, phenelzine, rasagiline, selegiline, and tranylcypromine. Some medicines can interact with cyclobenzaprine and cause a serious condition called serotonin syndrome. Be sure your doctor knows if you also take stimulant medicine, opioid medicine, herbal products, or medicine for depression, mental illness, Parkinson's disease, migraine headaches, serious infections, or prevention of nausea and vomiting. Ask your doctor before making any changes in how or when you take your medications. Tell your doctor if you have ever had: liver disease; glaucoma; enlarged prostate; or problems with urination. It is not known whether this medicine will harm an unborn baby. Tell your doctor if you are or plan to become . It may not be safe to breast-feed while using this medicine. Ask your doctor about any risk. Older adults may be more sensitive to the effects of this medicine. How should I take cyclobenzaprine? Follow all directions on your prescription label and read all medication guides or instruction sheets. Your doctor may occasionally change your dose. Use the medicine exactly as directed. Cyclobenzaprine is usually taken once daily for only 2 or 3 weeks. Follow your doctor's dosing instructions very carefully. Swallow the capsule whole and do not crush, chew, break, or open it. Take the medicine at the same time each day. Call your doctor if your symptoms do not improve after 3 weeks, or if they get worse. Store at room temperature away from moisture, heat, and light. What happens if I miss a dose? Take the medicine as soon as you can, but skip the missed dose if it is almost time for your next dose. Do not take two doses at one time. What happens if I overdose? Seek emergency medical attention or call the Poison Help line at . An overdose of cyclobenzaprine can be fatal. Overdose symptoms may include severe drowsiness, vomiting, fast heartbeats, tremors, agitation, or hallucinations. What should I avoid while taking cyclobenzaprine? Avoid driving or hazardous activity until you know how this medicine will affect you. Your reactions could be impaired. Avoid drinking alcohol. Dangerous side effects could occur. What are the possible side effects of cyclobenzaprine? Get emergency medical help if you have signs of an allergic reaction: hives; difficult breathing; swelling of your face, lips, tongue, or throat. Stop using cyclobenzaprine and call your doctor at once if you have: fast or irregular heartbeats; chest pain or pressure, pain spreading to your jaw or shoulder; or sudden numbness or weakness (especially on one side of the body), slurred speech, balance problems. Seek medical attention right away if you have symptoms of serotonin syndrome, such as: agitation, hallucinations, fever, sweating, shivering, fast heart rate, muscle stiffness, twitching, loss of coordination, nausea, vomiting, or diarrhea. Serious side effects may be more likely in older adults. Common side effects may include: drowsiness, tiredness; headache, dizziness; dry mouth; or upset stomach, nausea, constipation. This is not a complete list of side effects and others may occur. Call your doctor for medical advice about side effects. You may report side effects to FDA at 7-965-PUG-1556. What other drugs will affect cyclobenzaprine? Using cyclobenzaprine with other drugs that make you drowsy can worsen this effect. Ask your doctorbefore using opioid medication, a sleeping pill, a muscle relaxer, or medicine for anxiety or seizures. Tell your doctor about all your other medicines, especially: bupropion (Zyban, for smoking cessation); meperidine; tramadol; verapamil; cold or allergy medicine that contains an antihistamine (Benadryl and others); medicine to treat Parkinson's disease; medicine to treat excess stomach acid, stomach ulcer, motion sickness, or irritable bowel syndrome; medicine to treat overactive bladder; or bronchodilator asthma medication. This list is not complete. Other drugs may affect cyclobenzaprine, including prescription and wmhc-zxm-eezhznr medicines, vitamins, and herbal products. Not all possible drug interactions are listed here. Where can I get more information? Your pharmacist can provide more information about cyclobenzaprine. Remember, keep this and all other medicines out of the reach of children, never share your medicines with others, and use this medication only for the indication prescribed. Every effort has been made to ensure that the information provided by [employer]. ('[employer]') is accurate, up-to-date, and complete, but no guarantee is made to that effect. Drug information contained herein may be time sensitive. [employer] information has been compiled for use by healthcare practitioners and consumers in the [place] and therefore [employer] does not warrant that uses outside of the [place] are appropriate, unless specifically indicated otherwise. [employer]'s drug information does not endorse drugs, diagnose patients or recommend therapy. [facility] drug information isan informational resource designed to assist licensed healthcare practitioners in caring for their p atients and/or to serve consumers viewing this service as a supplement to, and not a substitute for, the expertise, skill, knowledge and judgment of healthcare practitioners. The absence of a warningfor a given drug or drug combination in no way should be construed to indicate that the drug or drug combination is safe, effective or appropriate for any given patient. [facility] does not assume any responsibility for any aspect of healthcare administered with the aid of information [facility] provides. The information contained herein is not intended to cover all possible uses, directions, precautions, warnings, drug interactions, allergic reactions, or adverse effects. If you have questions about the drugs you are taking, check with your doctor, nurse or pharmacist. Copyright 2903-5707 [facility] [employer]. Version: 7.01. Revision Date: 05/31/2023. Education Materials Parts of the Throat and Neck The hard palate separates the nose from the mouth. The soft palate is the back of the roof of the mouth. The epiglottis keeps food and liquids out of the trachea when you swallow. The larynx (voice box) produces sound used for speaking. The eustachian tube is the tube that connects the throat to the ear. The nasopharynx is the area at the top of the throat behind the nose. The oropharynx is the area at the middle of the throat behind the mouth. The hypopharynx is the area at the lower part of the throat. The esophagus is the tube that carries food and liquids from the throat to the stomach. The trachea is the tube that carries air between the throat and the lungs. The lymph nodes are ramsey-shaped organs that help the body fight infections. 6327-8144 [employer]. [address] [place] [address]. All rights reserved. This information is not intended as a substitute for professional medical care. Always follow yourhealthcare professional's instructions. Neck Sprain or Strain A sudden force that causes turning or bending of the neck can cause sprain or strain. An example would be the force from a car accident. This can stretch or tear muscles called a strain. It can also stretch or tear ligaments called a sprain. Either of these can cause neck pain. Sometimes neck pain occurs after a simple awkward movement. In either case, muscle spasm is commonly present and contributes to the pain. Unless you had a forceful physical injury (for example, a car accident or fall), X-rays are often not ordered for the initial evaluation of neck pain. If pain continues and does not respond to medical treatment, X-rays and other tests may be done later. Home care You may feel more soreness and spasm the first few days after the injury. Rest until symptoms startto improve. When lying down, use a comfortable pillow or a rolled towel that supports the head and keeps the spine in a neutral position. The position of the head should not be tilted forward or backward. Apply an ice pack over the injured area for 15 to 20 minutes every 3 to 6 hours. Do this for the first 24 to 48 hours. You can make an ice pack by filling a plastic bag that seals at the top with icecubes and then wrapping it with a thin towel. After 48 hours, apply heat (warm shower or warm bath)for 15 to 20 minutes several times a day, or alternate ice and heat. You may use aixz-fos-wutfbif pain medicine to control pain, unless another pain medicine was prescribed. If you have chronic liver or kidney disease or ever had a stomach ulcer or gastrointestinal bleeding, talk with your healthcare provider before using these medicines. If a soft cervical collar was prescribed, only ear it for periods of increased pain. It should not be worn for more than 3 hours a day, or for longer than 1 to 2 weeks. Follow-up care Follow up with your healthcare provider, or as directed. Physical therapy may be needed. Sometimes fractures don t show up on the first X-ray. Bruises and sprains can sometimes hurt as much as a fracture. These injuries can take time to heal completely. If your symptoms don t improve or they get worse, talk with your healthcare provider. You may need a repeat X-ray or other tests. If X-rays were taken, you will be told of any new findings that may affect your care. Call 911 Call 911 if you have: Neck swelling, difficulty or painful swallowing Trouble breathing Chest pain When to seek medical advice Call your healthcare provider right away if any of these occur: Pain becomes worse or spreads into your arms or legs Weakness or numbness in one or both arms or legs [phone] [employer] [address] [place] [address]. All rights reserved. This information is not intended as a substitute for professional medical care. Always follow yourhealthcare professional's instructions. Additional Information VACCINATE! IT SAVES LIVES! Members of the community who have not yet received the COVID-19 vaccine and would like to receive it can visit one of [facility] vaccine clinics. There are many vaccine clinic locations within the [facility]. For locations and available times, please visit www.[email or web address].[email or web address]/. It is important to note that some COVID mobile vaccine clinics are held outdoors and may be canceled in rainy or stormy conditions. To learn more about pediatric vaccinations (ages 5-11), we invite you to visit the [facility] webpage. https://www.[employer].org/pages/8494-Zkfmu-Dxgfdeltudf-Xaufztegbd-Jjupc-Itn stions.htmlTo learn more about the COVID-19 vaccine, we invite you to visit the CDC website for a list of frequently asked questions. https://www.cdc.gov/coronavirus/2019-ncov/vaccines/faq.html [facility] Patient Portal Access Instructions: Stay connected with your healthcare team and access your personal medical information anytime with the [facility] Patient Portal. If you would like a full copy of your medical records please contact the [facility] Medical Records Department Saturday through Saturday between 8a.m. and 4:30p.m. Please follow the directions below to access the portal: 1.Access the email account you provided upon registration to the hospital.2.Look for an invitation email from [facility].3.Open the email and access the invitation link: Accept Invitation to [facility].Fill in the required argueta to create your account. To access your account, visit [email or web address] or scan the QR code above. Click the bluebutton labeled "Access Patient Portal" and then log in with the username and password that you created in the steps above. You can then view a summary of results, a summary of your visits, and the ability to download your summaries to your computer or send the information securely to a physician. Re member that your healthcare information is confidential, so carefully consider who you will allow to register on the [facility] Patient Portal for access to your information. You can also access the [facility] Patient Portal on the trav[employer] donovan. Simply click on "Health Records" under "Health Data" and then click on the [employer] logo. HOW TO SAFELY DISPOSE OF PRESCRIPTION MEDICATIONS Please use one of the following methods to safely dispose of your unused medications. 1.Use a drug disposal kit: the drug disposal pouch allows you to safely discard your old and unuseddrugs. Ask your nurse to give you one when you are discharged.2.Visit a local take-back location: Many local pharmacies and police departments have programs that collect old and unwanted prescriptiondrugs. Call your local pharmacy or go to http://C4Robo.Streyner/2T8Nq7a to find one close to you.3.Make use of household items: Use cat litter or old coffee grounds to dispose medications if other options arenot available. Mix your drugs with these household products, seal them in an airtight container andthrow it into the garbage. Call [facility]: [phone] to be sure your drugs can be disposed of in this way. Some medicines may require a different approach.4.Never flush your medications down the toilet. IF YOU HAVE BEEN PRESCRIBED AN OPIOIDS FOR PAIN If you have been prescribed an opioid (such as hydrocodone, oxycodone or morphine), it is critical to understand the possible side effects and risks of opioid pain medications. Even when taken as directed, opioids can have several side effects including: Tolerance, meaning you might need to take more of a medication for the same pain relief. Nausea, vomiting and/or constipation. Sleepiness, dizziness, dry mouth, confusion, depression or itching. Physical dependence, meaning you have withdrawal symptoms when a medication is stopped ? this can develop within a few days. KNOW YOUR RESPONSIBILITIES It is important to know exactly how much and how often to take the opioid pain medications you are prescribed. Never take opioids in higher amounts or more often than prescribed. Do not combine opioids with alcohol or other drugs that cause drowsiness, such as benzodiazepines, also known as benzos,including diazepam and alprazolam, muscle relaxants or sleep aids. Never sell or share prescriptionopioids. This is illegal. Store opioids in a secure place and out of reach of others (including children, family, friends and visitors). The last page(s) of this document has been signed and retained as a CHART COPY Signatures Patient Education Materials Parts of the Throat and Neck Neck Sprain or Strain Medication Leaflets cyclobenzaprine My discharge plan and instructions have been reviewed and explained to me and I,GEORGINA WEATHERS understand my current condition and have read and understand these discharge instructions. I have received a written copy of the plan/instructions. If I have questions, I am aware that I should contact my doctor. 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 More than one medicine may be used to treat your pain. Medicines may be changed as you feel better, or if they cause side effects. Medicines What they do Possible side effects Non-opioid NSAIDs, aspirin, acetaminophen Reduce pain chemicals at the site of pain. NSAIDs can reduce joint and soft tissue inflammation. Nausea, stomach pain, ulcers, indigestion, bleeding, kidney, and liver problems. Certain NSAIDs mayincrease the risk for cardiovascular disease in some people. Talk with your healthcare provider. Opioids (morphine and similar medicines often called narcotics) Reduce feelings or perception of pain. Used for moderate to severe pain. Nausea, vomiting, itching, drowsiness, constipation, slowed breathing Other medicines (corticosteroids, antinausea, antidepressant, and antiseizure medicines) Reduce swelling, burning or tingling pain, or certain side effects of pain medicines, such as nausea or vomiting Your healthcare provider will explain the possible side effects of these medicines. Anesthetics (local, injected) include lidocaine, benzocaine, and medicines used by anesthesiologists Stop pain signals from reaching the brain by blocking feeling in the treated area Nausea, low blood pressure, fever, slowed breathing, fainting, seizures, heart attack When to call your healthcare provider Call your healthcare provider right away (or have a family member call) if you have: Unrelieved pain Side effects, including constipation or uncontrolled nausea, that interfere with daily activities If you have extreme sleepiness or breathing problems, call 911. Other precautions Ask your healthcare provider or pharmacist how to get rid of your pain medicines safely when you stop using them. Never share your pain medicines with anyone. Store your medicines in a safe place so they can t be stolen. If you think your medicine has been stolen or lost, tell your healthcare provider right away. 8380-2958 [employer]. [address] [place] [address]. All rights reserved. This information is not intended as a substitute for professional medical care. Always follow yourhealthcare professional's instructions. Follow Up Care 06/13/2025 10:26:18 With:[facility], CLINIC Address: [address] [place], [place] [address]Ju[place] [address]- When:2-4 days [facility] 08-17-2025 Note Discharge Instructions Thank you for allowing [facility] to assist you with your healthcare needs. The following is importantdischarge information regarding your hospital visit. Diagnosis from Today's Visit Neck pain What to Do Next Instructions from Your Care Team No qualifying data available. Post Acute Orders No qualifying data available. You Need to Schedule the Following Appointments Follow Up with [facility], [facility] When:Within 2-4 days Where:[address] [place] [address] [place] [address]- Allergies NKA Medications Please ask your primary doctor or pharmacist before taking any other medication not listed, including over the counter drugs, herbal medications, vitamins and or supplements as they may interact withyour home medications. What How Much When Why Instructions Last Dose New acetaminophen-hydrocodone (Arnold 325- 5 mg oral tablet) 1 tab(s) by mouth Every 6 hours as needed for for pain Neck pain Duration: 3 Days Printed Prescription 10:49 am Please take this list to your next doctor s visit. Bring all medications you take, including over the counter medications, herbals and other supplements with you to your doctor s visit. Patients and families are reminded to discard old lists and to update any records with all medication providers or retail pharmacies. Medication Leaflets acetaminophen and hydrocodone (a SEET a MIN oh fen and devonte CABRAL done) Verdrocet What is the most important information I should know about acetaminophen and hydrocodone? MISUSE OF OPIOID MEDICINE CAN CAUSE ADDICTION, OVERDOSE, OR . Keep the medication in a place where others cannot get to it. Taking opioid medicine during may cause life-threatening withdrawal symptoms in the . Fatal side effects can occur if you use opioid medicine with alcohol, or with other drugs that cause drowsiness or slow your breathing. Stop taking this medicine and call your doctor right away if you have skin redness or a rash that spreads and causes blistering and peeling. What is acetaminophen and hydrocodone? Acetaminophen and hydrocodone is a combination medicine used to relieve moderate to severe pain. Acetaminophen and hydrocodone contains an opioid medicine, and may be habit-forming. Acetaminophen and hydrocodone may also be used for purposes not listed in this medication guide. What should I discuss with my healthcare provider before taking acetaminophen and hydrocodone? You should not use this medicine if you are allergic to acetaminophen or hydrocodone, or if you have: severe asthma or breathing problems; or a blockage in your stomach or intestines. Tell your doctor if you have ever had: breathing problems, sleep apnea (breathing stops during sleep); liver disease; a drug or alcohol addiction; kidney disease; a head injury or seizures; urination problems; or problems with your thyroid, pancreas, or gallbladder. If you use opioid medicine while you are , your baby could become dependent on the drug. This can cause life-threatening withdrawal symptoms in the baby after it is born. Babies born dependent on opioids may need medical treatment for several weeks. Ask a doctor before using opioid medicine if you are . Tell your doctor if you notice severe drowsiness or slow breathing in the nursing baby. How should I take acetaminophen and hydrocodone? Follow all directions on your prescription label. Never take this medicine in larger amounts, or for longer than prescribed. An overdose can damage your liver or cause . Tell your doctor if you feel an increased urge to use more of this medicine. Never share this medicine with another person, especially someone with a history of drug abuse or addiction. MISUSE CAN CAUSE ADDICTION, OVERDOSE, OR . Keep the medicine in a place where others cannot get to it. Selling or giving away this medicine is against the law. Measure liquid medicine carefully. Use the dosing syringe provided, or use a medicine dose-measuring device (not a kitchen spoon). If you need surgery or medical tests, tell the doctor ahead of time that you are using this medicine. You should not stop using this medicine suddenly. Follow your doctor's instructions about tapering your dose. Store at room temperature away from moisture and heat. Keep track of your medicine. You should be aware if anyone is using it improperly or without a prescription. Do not keep leftover opioid medication. Just one dose can cause in someone using this medicine accidentally or improperly. Ask your pharmacist where to locate a drug take-back disposal program.If there is no take-back program, flush the unused medicine down the toilet. What happens if I miss a dose? Since this medicine is used for pain, you are not likely to miss a dose. Skip any missed dose if itis almost time for your next dose. Do not use two doses at one time. What happens if I overdose? Seek emergency medical attention or call the Poison Help line at . An overdose of this medicine can be fatal, especially in a child or other person using the medicine without a prescription. Overdose symptoms may include nausea, vomiting, sweating, severe drowsiness, pinpoint pupils, slow breathing, or no breathing. Your doctor may recommend you get naloxone (a medicine to reverse an opioid overdose) and keep it with you at all times. A person caring for you can give the naloxone if you stop breathing or don't wake up. Your caregiver must still get emergency medical help and may need to perform CPR (cardiopulmonary resuscitation) on you while waiting for help to arrive. Anyone can buy naloxone from a pharmacy or local health department. Make sure any person caring foryou knows where you keep naloxone and how to use it. What should I avoid while taking acetaminophen and hydrocodone? Avoid driving or operating machinery until you know how this medicine will affect you. Dizziness ordrowsiness can cause falls, accidents, or severe injuries. Do not drink alcohol. Dangerous side effects or could occur. Ask a doctor or pharmacist before using any other medicine that may contain acetaminophen (sometimes abbreviated as APAP). Taking certain medications together can lead to a fatal overdose. What are the possible side effects of acetaminophen and hydrocodone? Get emergency medical help if you have signs of an allergic reaction: hives; difficulty breathing; swelling of your face, lips, tongue, or throat. Opioid medicine can slow or stop your breathing, and may occur. A person caring for you should give naloxone and/or seek emergency medical attention if you have slow breathing with long pauses,blue colored lips, or if you are hard to wake up. In rare cases, acetaminophen may cause a severe skin reaction that can be fatal. This could occur even if you have taken acetaminophen in the past and had no reaction. Stop taking this medicine and call your doctor right away if you have skin redness or a rash that spreads and causes blistering andpeeling. Call your doctor at once if you have: noisy breathing, sighing, shallow breathing, breathing that stops; a light-headed feeling, like you might pass out; liver problems--nausea, upper stomach pain, tiredness, loss of appetite, dark urine, kita-colored stools, jaundice (yellowing of the skin or eyes); low cortisol levels-- nausea, vomiting, loss of appetite, dizziness, worsening tiredness or weakness; o high levels of serotonin in the body--agitation, hallucinations, fever, sweating, shivering, fast heart rate, muscle stiffness, twitching, loss of coordination, nausea, vomiting, diarrhea. Serious breathing problems may be more likely in older adults and in those who are debilitated or have wasting syndrome or chronic breathing disorders. Common side effects include: dizziness, drowsiness, feeling tired; nausea, vomiting, stomach pain; constipation; or headache. This is not a complete list of side effects and others may occur. Call your doctor for medical advice about side effects. You may report side effects to FDA at 4-663-BXJ-6134. What other drugs will affect acetaminophen and hydrocodone? You may have breathing problems or withdrawal symptoms if you start or stop taking certain other medicines. Tell your doctor if you also use an antibiotic, antifungal medication, heart or blood pressure medication, seizure medication, or medicine to treat HIV or hepatitis C. Opioid medication can interact with many other drugs and cause dangerous side effects or . Be sure your doctor knows if you also use: cold or allergy medicines, bronchodilator asthma/COPD medication, or a diuretic ('water pill'); medicines for motion sickness, irritable bowel syndrome, or overactive bladder; other opioids--opioid pain medicine or prescription cough medicine; a sedative like Valium--diazepam, alprazolam, lorazepam, Xanax, Klonopin, Versed, and others; drugs that make you sleepy or slow your breathing--a sleeping pill, muscle relaxer, medicine to treat mood disorders or mental illness; drugs that affect serotonin levels in your body--a stimulant, or medicine for depression, Parkinson's disease, migraine headaches, serious infections, or nausea and vomiting. This list is not complete. Other drugs may affect acetaminophen and hydrocodone, including prescription and [id number] medicines, vitamins, and herbal products. Not all possible interactions are listed here. Where can I get more information? Your doctor or pharmacist can provide more information about acetaminophen and hydrocodone. Remember, keep this and all other medicines out of the reach of children, never share your medicines with others, and use this medication only for the indication prescribed. Every effort has been made to ensure that the information provided by [employer]. ('[employer]') is accurate, up-to-date, and complete, but no guarantee is made to that effect. Drug information contained herein may be time sensitive. [employer] information has been compiled for use by healthcare practitioners and consumers in the [place] and therefore [employer] does not warrant that uses outside of the [place] are appropriate, unless specifically indicated otherwise. [employer] drug information does not endorse drugs, diagnose patients or recommend therapy. [employer] drug information isan informational resource designed to assist licensed healthcare practitioners in caring for their p atients and/or to serve consumers viewing this service as a supplement to, and not a substitute for, the expertise, skill, knowledge and judgment of healthcare practitioners. The absence of a warningfor a given drug or drug combination in no way should be construed to indicate that the drug or drug combination is safe, effective or appropriate for any given patient. [employer] does not assume any responsibility for any aspect of healthcare administered with the aid of information [employer] provides. The information contained herein is not intended to cover all possible uses, directions, precautions, warnings, drug interactions, allergic reactions, or adverse effects. If you have questions about the drugs you are taking, check with your doctor, nurse or pharmacist. Copyright 9563-0189 [facility]. Version: 19.02. Revision Date: 02/04/2024. Education Materials Medicine for Pain Medicines can help to block pain, decrease inflammation, and treat related problems. More than one medicine may be used to treat your pain. Medicines may be changed as you feel better, or if they cause side effects. Medicines What they do Possible side effects Non-opioid NSAIDs, aspirin, acetaminophen Reduce pain chemicals at the site of pain. NSAIDs can reduce joint and soft tissue inflammation. Nausea, stomach pain, ulcers, indigestion, bleeding, kidney, and liver problems. Certain NSAIDs mayincrease the risk for cardiovascular disease in some people. Talk with your healthcare provider. Opioids (morphine and similar medicines often called narcotics) Reduce feelings or perception of pain. Used for moderate to severe pain. Nausea, vomiting, itching, drowsiness, constipation, slowed breathing Other medicines (corticosteroids, antinausea, antidepressant, and antiseizure medicines) Reduce swelling, burning or tingling pain, or certain side effects of pain medicines, such as nausea or vomiting Your healthcare provider will explain the possible side effects of these medicines. Anesthetics (local, injected) include lidocaine, benzocaine, and medicines used by anesthesiologists Stop pain signals from reaching the brain by blocking feeling in the treated area Nausea, low blood pressure, fever, slowed breathing, fainting, seizures, heart attack When to call your healthcare provider Call your healthcare provider right away (or have a family member call) if you have: Unrelieved pain Side effects, including constipation or uncontrolled nausea, that interfere with daily activities If you have extreme sleepiness or breathing problems, call 911. Other precautions Ask your healthcare provider or pharmacist how to get rid of your pain medicines safely when you stop using them. Never share your pain medicines with anyone. Store your medicines in a safe place so they can t be stolen. If you think your medicine has been stolen or lost, tell your healthcare provider right away. 6594-2334 [employer]. [address] [place] [address], [place] [address]. All rights reserved. This information is not intended as a substitute for professional medical care. Always follow yourhealthcare professional's instructions. Additional Information VACCINATE! IT SAVES LIVES! Members of the community who have not yet received the COVID-19 vaccine and would like to receive it can visit one of [facility] vaccine clinics. There are many vaccine clinic locations within the [facility]. For locations and available times, please visit www.gettheshot.coronavirus.[place].gov/. It is important to note that some COVID mobile vaccine clinics are held outdoors and may be canceled in rainy or stormy conditions. To learn more about pediatric vaccinations (ages 5-11), we invite you to visit the [facility] webpage. https://www.[employer].org/pages/0002-Yriyf-Lfcrnzfycqb-Itwozcqnvk-Dmzzl-Rxv stions.htmlTo learn more about the COVID-19 vaccine, we invite you to visit the CDC website for a list of frequently asked questions. https://www.cdc.gov/coronavirus/2019-ncov/vaccines/faq.html [facility] Access Instructions: Stay connected with your healthcare team and access your personal medical information anytime with the [facility]. If you would like a full copy of your medical records please contact the [facility] Medical Records Department Saturday through Saturday between 8a.m. and 4:30p.m. Please follow the directions below to access the portal: 1.Access the email account you provided upon registration to the hospital.2.Look for an invitation email from [facility].3.Open the email and access the invitation link: Accept Invitation to [facility].Fill in the required argueta to create your account. Sign into [email or web address] with your username and password that you created in the above steps to stay up to date. You can then view a summary of results, a summary of your visits, and the ability to download your summaries to your computer or send the information securely to a physician. Remember that your healthcare information is confidential, so carefully consider who you will allow to register on the [facility] Portal for access to your information. You can also access the [facility] Portal on the travayl donovan. Simply click on "Health Records" under "HealthData" and then click on the [facility] logo. HOW TO SAFELY DISPOSE OF PRESCRIPTION MEDICATIONS Please use one of the following methods to safely dispose of your unused medications. 1.Use a drug disposal kit: the drug disposal pouch allows you to safely discard your old and unuseddrugs. Ask your nurse to give you one when you are discharged.2.Visit a local take-back location: Many local pharmacies and police departments have programs that collect old and unwanted prescriptiondrugs. Call your local pharmacy or go to http://C4Robo.Streyner/9V6Hg0r to find one close to you.3.Make use of household items: Use cat litter or old coffee grounds to dispose medications if other options arenot available. Mix your drugs with these household products, seal them in an airtight container andthrow it into the garbage. Call [facility]: [phone] to be sure your drugs can be disposed of in this way. Some medicines may require a different approach.4.Never flush your medications down the toilet. IF YOU HAVE BEEN PRESCRIBED AN OPIOIDS FOR PAIN If you have been prescribed an opioid (such as hydrocodone, oxycodone or morphine), it is critical to understand the possible side effects and risks of opioid pain medications. Even when taken as directed, opioids can have several side effects including: Tolerance, meaning you might need to take more of a medication for the same pain relief. Nausea, vomiting and/or constipation. Sleepiness, dizziness, dry mouth, confusion, depression or itching. Physical dependence, meaning you have withdrawal symptoms when a medication is stopped ? this can develop within a few days. KNOW YOUR RESPONSIBILITIES It is important to know exactly how much and how often to take the opioid pain medications you are prescribed. Never take opioids in higher amounts or more often than prescribed. Do not combine opioids with alcohol or other drugs that cause drowsiness, such as benzodiazepines, also known as benzos,including diazepam and alprazolam, muscle relaxants or sleep aids. Never sell or share prescriptionopioids. This is illegal. Store opioids in a secure place and out of reach of others (including children, family, friends and visitors). The last page(s) of this document has been signed and retained as a CHART COPY Signatures Patient Education Materials Medicine for Pain Medication Leaflets acetaminophen and hydrocodone My discharge plan and instructions have been reviewed and explained to me and SARAHY Turcios AARON M understand my current condition and have read and understand these discharge instructions. I have received a written copy of the plan/instructions. If I have questions, I am aware that I should contact my doctor. 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 COMPARISON: No TECHNIQUE: Cervical spine CT with sagittal and coronal reconstructions. This exam was performed according to our departmental dose optimization program, and includes the following measures where applicable: automated exposure control, adjustment of the mAs and/or kVp according to patient size and/or exam, and an iterative reconstruction algorithm. FINDINGS: There are no acute fractures or dislocations. There is mild reversal of the normal cervical lordosis. The individual vertebral bodies are intact. Prevertebral soft tissues are unremarkable in appearance. IMPRESSION: No acute fracture. Neck pain Interpreted by: Kenan Leung MD Preliminary Report By: Kenan Leung MD Electronically signed By Kenan Leung MD Dictated Date: 06/13/2025 12:10:09 PM Prelim Date: 06/13/2025 12:12:15 PM Sign Date: 06/13/2025 1:56:11 PM Ordering Provider: BRYANT GRAJEDA [facility]05-21[facility] Note* Exam Date Time Procedure Performing Provider Status 03/17/25 7:22 AM MRI Spine Lumbar w/o Contrast Juwan BETTENCOURT MD; Auth (Verified) [id number] ORIGINAL EXAMINATION: MRI OF THE LUMBAR SPINE WITHOUT CONTRAST, 03/17/2025 7:31 am TECHNIQUE: Multiplanar multisequence MRI of the lumbar spine was performed without the administration of intravenous contrast. COMPARISON: None. HISTORY: ORDERING SYSTEM PROVIDED HISTORY: Reason for Exam: LUMBAR RADICULOPATHY FINDINGS: BONES/ALIGNMENT: There is normal alignment of the spine. The vertebral body heights are maintained. The bone marrow signal appears unremarkable. SPINAL CORD: The conus terminates normally. SOFT TISSUES: No paraspinal mass identified. L1-L2: There is no significant disc herniation, spinal canal stenosis or neural foraminal narrowing. L2-L3: There is no significant disc herniation, spinal canal stenosis or neural foraminal narrowing. L3-L4: There is no significant disc herniation, spinal canal stenosis or neural foraminal narrowing. L4-L5: There is no significant disc herniation, spinal canal stenosis or neural foraminal narrowing. L5-S1: There is disc desiccation with small broad-based herniation of disc material eccentric to the right the GB maximum AP extent of 6 mm and extruded superiorly with respect to the disc level. No foraminal extension. IMPRESSION: Right-sided herniated disc L5-S1. Interpreted by: Juan Alberto Bettencourt Preliminary Report By: Juan Alberto Bettencourt Electronically signed By Juan Alberto Bettencourt Dictated Date: 03/17/2025 7:34:08 AM Prelim Date: 03/17/2025 7:36:02 AM Sign Date: 03/17/2025 7:36:02 AM Ordering Provider[facility]DA [facility] No data available for this section [facility] Discharge instructions No data available for this section [facility] Progress note No data available for this section [facility] Summary note* Марина Montgomery: PERFORM Event Display: Patient Summary Documents Authored Date: [id number] [facility] Summary Purpose Family History No Family History Records Found Advance Directives No Advanced Directives Records FoundNo Advanced Directives Records Found Additional Source Comments Patient Care team informatio n (unrecognized section and content) Care Team Personnel Name: [place], [facility]IN[facility] Position: Physician Member Role: Primary Care Physician Address: [address] [place] [address] Sam MALDONADO [address] Telecom: (unrecognized sect ion and content) No Status Records FoundNo Status Records Found INFORMATION SOURCE (unrecogn ized section and content) DATE CREATED AUTHOR 08/13/2025 [facility] DATE CREATED AUTHOR AUTHOR'S CINDYIZ ATION 08/20/2025 [facility] MAIN FOR RECORDS PERTAINING TO PATIENTS WHO ARE OR HAVE BEEN ENROLLED IN A CHEMICAL DEPENDENCY/SUBSTANCEABUSE PROGRAM, SOME INFORMATION MAY BE OMITTED. This clinical summary was aggregated from multiple sources. Caution should be exercised in using it in the provision of clinical care. This summary normalizes information from multiple sources, and as a consequence, information in this document may materially change the coding, format and clinical context of patient data. In addition, data may be omitted in some cases. CLINICAL DECISIONS SHOULD BE BASED ON THE PRIMARY CLINICAL RECORDS. [employer] provides no warranty or guarantee of the accuracy or completeness of information in this document.
== END | disposition home or self-care (01) ==
LOC: RAD 14:24
PROVIDERS: PCP Family Medicine; Referring Provider Chiropractor; Visit Provider Chiropractor
DX: M19.90 Unspecified osteoarthritis, unspecified site (principal)
CPT/HCPCS: 73120